=== PATIENT | male | born 1940 | race Caucasian/White ===

== ENCOUNTER 2016-05-13 18:32 | Inpatient (IN) | payer BC ==
[2016-05-13] MEDS ORDERED: Ondansetron INJ* 2 MG/ML VIAL IV ONE (20:42)
[2016-05-13] MEDS ORDERED: NS 0.9% 1000 ML* 1,000 ML IV ONE (20:42)
[2016-05-13] MEDS ORDERED: Morphine INJ* 4 MG/ML 1 ML SYRINGE IV ONE ×3 (20:42→23:21)
--- NOTE | 2016-05-13 20:58 | ED ---
Elbert Gomez Adam, scribed for Stiven Yusuf MD on 05/13/16 at 2036 . Abdominal Pain/Male - HPI Summary HPI Summary: Pt is a 75 year old male presenting with abdominal pain. The pain is described as a cramping that is diffuse in his central abdomen and tender to the touch. It set on at 08:00 this morning after the pt was already awake. Since then the pain has been constant and it grew worse this afternoon. The pt states that he has not been active today and has not had anything to eat or drink all day except for coffee this morning. He took Pepto Bismol but it did not alleviate his pain. Pt denies fever and N/V/D. - History of Current Complaint Chief Complaint: EDAbdPain Stated Complaint: ABD PAIN Time Seen by Provider: 05/13/16 20:30 Hx Obtained From: Patient Onset/Duration: Sudden Onset, Lasting Hours, Still Present Timing: Constant, Lasting Hours Severity Initially: Mild Severity Currently: Moderate Pain Intensity: 9 Pain Scale Used: 0-10 Numeric Location: Diffuse Radiates: No Character: Cramping Aggravating Factor(s): Nothing Alleviating Factor(s): Nothing Associated Signs And Symptoms: Positive: Decreased Appetite. Negative: Fever, Nausea, Vomiting, Diarrhea - Allergies/Home Medications Allergies/Adverse Reactions: Allergies Allergy/AdvReac Type Severity Reaction Status Date / Time No Known Allergies Allergy Verified 03/07/16 13:18 PMH/Surg Hx/FS Hx/Imm Hx Endocrine/Hematology History: Denies: Hx Diabetes Cardiovascular History: Reports: Hx Hypertension, Hx Peripheral Vascular Disease Musculoskeletal History: Denies: Hx Osteoporosis Sensory History: Reports: Hx Contacts or Glasses Denies: Hx Hearing Aid Opthamlomology History: Reports: Hx Contacts or Glasses - Surgical History Surgery Procedure, Year, and Place: cardiac stents angioplasty 4 yrs [place] [facility] [place] ONE DONE AT [facility] 3YRS AGO. APPENDECTOMY Hx Anesthesia Reactions: No Infectious Disease History: No Infectious Disease History: Denies: Hx Shingles, Hx Tuberculosis, Traveled Outside the [place] in Last 30 Days - Family History Known Family History: Positive: Other - Negative: malignant hyperthermia, anesthesia reaction - Social History Occupation: Retired Lives: With Family - Alcohol Use: Daily Alcohol Amount: 4-5 cans a/day Hx Substance Use: No Substance Use Type: Reports: None Hx Tobacco Use: Yes Smoking Status (MU): Heavy Every Day Tobacco Smoker Type: Cigarettes Amount Used/How Often: 1PPD Length of Time of Smoking/Using Tobacco: 50+ YEARS Have You Smoked in the Last Year: Yes Review of Systems Negative: Fever Positive: Abdominal Pain, Other - Decreased PO intake. Negative: Vomiting, Diarrhea, Nausea All Other Systems Reviewed And Are Negative: Yes Physical Exam Triage Information Reviewed: Yes Vital Signs On Initial Exam: Initial Vitals Temp Pulse Resp BP Pulse Ox 98.9 F 103 20 166/95 98 05/13/16 18:40 05/13/16 18:40 05/13/16 18:40 05/13/16 18:40 05/13/16 18:40 Vital Signs Reviewed: Yes Appearance: Positive: Ill-Appearing, Pain Distress - moderate [place] Skin: Positive: Warm Eyes: Positive: ROME Neck: Positive: Supple Respiratory/Lung Sounds: Positive: Clear to Auscultation, Breath Sounds Present Cardiovascular: Positive: RRR Abdomen Description: Positive: Soft, Other: - mild diffuse abd tendserness. Negative: Distended, Guarding Musculoskeletal: Positive: Strength/ROM Intact Neurological: Positive: Sensory/Motor Intact, Alert, Oriented to Person Place, Time Psychiatric: Positive: Anxious Diagnostics - Vital Signs Vital Signs Temp Pulse Resp BP Pulse Ox 05/13/16 20:21 97.4 F 05/13/16 20:20 94 97 05/13/16 20:19 197/88 05/13/16 19:28 96 180/75 100 05/13/16 18:40 98.9 F 103 20 166/95 98 - Laboratory Result Diagrams: 05/13/16 20:55 05/13/16 20:55 Lab Statement: Any lab studies that have been ordered have been reviewed, and results considered in the medical decision making process. - CT A/P CT Interpretation Completed By: Radiologist - IMPRESSION: 1. NEW LOW-DENSITY PANCREATIC LESION AND PANCREATIC DUCTAL DILATATION. MILDLY ENLARGED PERIPORTAL LYMPH NODE. SUGGEST FURTHER CHARACTERIZATION WITH A DEDICATED CT EXAMINATION OF - EKG 18:46 Cardiac Rate: NL - 95 BPM EKG Rhythm: Sinus Rhythm ST Segment: Non-Specific - ST abnormalities EKG Interpretation: APC's Abdominal Pain Fem Course/Dx - Diagnoses Provider Diagnoses: Abdominal pain Discharge - Discharge Plan Condition: Fair Disposition: ADMITTED TO [facility] The documentation as recorded by the Elbert vázquez Adam accurately reflects the service I personally performed and the decisions made by me, Stiven Yusuf MD.
[2016-05-13 20:59] LABS: Hematocrit 53 % (42-52); Hemoglobin 17.6 g/dl (14.0-18.0); Mean Corpuscular HGB Conc 33 g/dl (31-36); Mean Corpuscular Hemoglobin 35 pg (27-31); Mean Corpuscular Volume 103 fL (80-94); Mean Platelet Volume 9 um3 (7.4-10.4); Red Blood Count 5.11 10^6/ul (4.0-5.4); Red Cell Distribution Width 15 % (10.5-15); White Blood Count 11.1 10^3/ul (3.5-10.8)
[2016-05-13] MEDS ORDERED: Insulin REGULAR(*) 1 UNITS UNIT IV ONE (21:09)
[2016-05-13 21:15] LABS: Albumin 4.1 g/dL (3.2-5.2); BUN/Creatinine Ratio 9.8 (8-20); C Reactive Protein 3.69 mg/L (< 5.00); Calcium 9.2 mg/dL (8.6-10.3); EGFR African American 118.4 (>60); EGFR Non-African American 92.1 (>60); Globulin 3.1 g/dL (2-4); Magnesium 1.9 mg/dL (1.9-2.7); Total Bilirubin 0.5 mg/dL (0.2-1.0); Total Protein 7.2 g/dL (6.4-8.9)
[2016-05-13] MEDS ORDERED: Iohexol 300* (CONTRAST) 10 ML SDV IV ONE (21:36)
--- NOTE | 2016-05-13 23:10 | RAD ---
INDICATION: Generalized abdominal pain COMPARISON: PET scan February 15, 2016 TECHNIQUE: Axial source images were obtained from the hemidiaphragms to the symphysis pubis following administration of oral and intravenous contrast. 100 mL Omnipaque 300 was utilized. Coronal and sagittal reconstructed images were acquired. Lung bases: There are some this changes in lung bases. Liver: The liver is normal in size. There are no masses. There is no ductal dilatation. Gallbladder: There are no calcified gallstones. There is no evidence of wall thickening or pericholecystic fluid. Spleen: The spleen is normal in size. There are no masses. Pancreas: There is a low density mass at the junction of the head and body the pancreas measuring 1.8 cm. There is pancreatic ductal dilatation. This appears to represent a new finding. There is no infiltrative change around the SMA or SMV. There is a mildly enlarged periportal lymph node as described below. Adrenal glands: There is no evidence of adrenal mass. Kidneys: The kidneys are normal in size and position. There are prompt nephrograms and there is prompt excretion bilaterally. There are no renal parenchymal masses. There is no evidence of nephrolithiasis. Adenopathy: There is a periportal lymph node measuring 1.5 cm. Fluid collections: There are no free or localized fluid collections. Vessels:There are atherosclerotic changes involving the aorta and iliac vessels. There is no focal aneurysm. The IVC appears normal. GI tract: There are no acute abnormalities the upper GI tract. There are extensive diverticula of the sigmoid colon. Pelvic organs: The prostate is enlarged Bladder: Mildly distended bladder. Limited evaluation due to beam hardening artifact from left hip arthroplasty. Abdominal and pelvic soft tissues: The extraperitoneal abdominal and pelvic soft tissues appear normal.. Osseous structures: There are no acute osseous findings. Other: None IMPRESSION: 1. NEW LOW-DENSITY PANCREATIC LESION AND PANCREATIC DUCTAL DILATATION. MILDLY ENLARGED PERIPORTAL LYMPH NODE. SUGGEST FURTHER CHARACTERIZATION WITH A DEDICATED CT EXAMINATION OF THE PANCREAS 2. EXTENSIVE DIVERTICULA. NO CT EVIDENCE OF ACUTE DIVERTICULITIS
[2016-05-13] MEDS ORDERED: HYDROmorphone* 1 MG/ML 1 ML SYR IV SLOW PU ONE (23:50)
[2016-05-14 00:08] LABS: Urine Bilirubin Negative (Negative); Urine Glucose 2+(150 mg/dL) (Negative); Urine Nitrite Negative (Negative)
[2016-05-14] MEDS ORDERED: HYDROmorphone* 1 MG/ML 1 ML SYR IV SLOW PU ONE (00:43)
[2016-05-14] MEDS ORDERED: Al Hydrox/Mg Hydrox/Simet LIQ* 30 ML UDC PO PRN (01:03)
[2016-05-14] MEDS ORDERED: Ondansetron INJ* 2 MG/ML VIAL IV PRN (01:03)
[2016-05-14] MEDS ORDERED: Docusate CAP* 100 MG PO PRN (01:03)
[2016-05-14] MEDS ORDERED: Acetaminophen TAB* 325 MG PO PRN (01:03)
[2016-05-14] MEDS ORDERED: Senna TAB PO PRN (01:03)
[2016-05-14] MEDS ORDERED: Morphine INJ* 2 MG/ML 1 ML SYRINGE IV PRN (01:03)
[2016-05-14] MEDS ORDERED: Magic Mouth Was-BEN/MAAL/LIDO SWISH SWAL PRN (01:06)
[2016-05-14] MEDS ORDERED: Mouth Piece, Nicotine* 1 EACH CARTRIDGE INH PRN (01:11)
[2016-05-14] MEDS ORDERED: Thiamine IV* 100 MG/ML 2 ML VIAL IM ONE (01:11)
[2016-05-14] MEDS ORDERED: Nicotine Inhaler* 10 MG AMP INH PRN (01:11)
[2016-05-14] MEDS ORDERED: Albuterol HFA INHALER* 8 gm MDI INH PRN (01:17)
[2016-05-14] MEDS ORDERED: LORazepam TAB(*) 1 MG PO SCH (02:00)
[2016-05-14] MEDS: NS 0.9% 1000 ML* 1,000 ML IV SCH ×2 (03:22→14:39)
[2016-05-14] MEDS: Heparin VIAL(*) 5000 UNITS/ML VIAL (FIVE THOUSAND) SUBCUT SCH ×3 (05:52→21:50)
--- NOTE | 2016-05-14 07:53 | HP ---
HISTORY AND PHYSICAL: DATE OF EVALUATION: 05/13/2016. TIME OF EVALUATION: 0100. PRIMARY CARE PHYSICIAN: Haresh Bueno MD CHIEF COMPLAINT: Abdominal pain. HISTORY OF PRESENT ILLNESS: This is a 75-year-old male with past medical history of peripheral vascular disease, tobacco use, alcohol use, who presents to the emergency room with abdominal pain. The patient woke up this morning with burning epigastric pain, worse with a deep breath. He had a normal bowel movement, this did not improve his pain. He had an episode of nausea, vomiting this morning, the pain has not improved. He came to the emergency room for further evaluation. He states he has had normal bowel movements. Denies any black stools, no blood in the stool, no weight changes. His states he has had decrease in appetite. No fever, chills. No upper respiratory symptoms. No chest pain, no night sweats. Never had a colonoscopy or an EGD. The patient was evaluated for a pulmonary nodule, workup was unremarkable, was then sent to ENT and Pulmonary and has an unremarkable workup thus far. In the emergency room, the patient had labs and imaging, was found to have pancreatic lesion. The patient is being evaluated for further evaluation for this. PAST MEDICAL HISTORY: 1. COPD. 2. Peripheral vascular disease status post fem-pop bypass. 3. Hypertension. 4. History of left hip fracture status post repair. MEDICATIONS: The patient is unaware of medications he takes. He is going to bring in the list in the morning. ALLERGIES: No known drug allergies.. SOCIAL HISTORY: Lives at home with his , who works here at [employer], who is his healthcare proxy. Her name is Cely. He admits to smoking a pack to a pack and a half per day for the past 50 years. He admits to drinking 4 to 5 drinks per day for the past 50 years. No illicit drug use. He used to work at a grocery store. CODE STATUS: Full code. REVIEW OF SYSTEMS: Unchanged from [facility]. FAMILY HISTORY: Unknown. The patient is adopted. PHYSICAL EXAMINATION VITALS: Temp is 97.4, pulse rate is 100, respiratory rate is 25, oxygen saturation is 92% on 2 L, blood pressure 184/76. GENERAL: No acute distress, resting comfortably with his at the bedside. HEENT: Neck supple, no lymphadenopathy. Pupils are equal and reactive, anicteric. Head, normocephalic. Oropharynx, mucous membranes are moist. No erythema or exudate. CARDIAC: Tachycardia, soft, systolic murmur heard throughout. RESPIRATORY: Diminished breath sounds. Poor aeration, prolonged expiratory phase. No wheezing, rhonchi, or rales. ABDOMEN: Hypoactive bowel sounds, soft, slightly firm. No rebound or guarding. Epigastric tenderness noted. EXTREMITIES: No clubbing, cyanosis, or edema. +1 DPs. NEUROLOGIC: Alert and oriented x3. No focal neurologic deficits. LABORATORY DATA: White count 11.1, hemoglobin is 17.6, hematocrit 53, platelets of 205. INR is 0.91, sodium 130, potassium 4, chloride 96, bicarb 25 , BUN 8, creatinine 0.82, glucose 183, lactic acid 1.5, lipase 137, bilirubin 0.5, AST is 16, ALT 14. RADIOGRAPHIC DATA: New low density pancreatic lesion and pancreatic duct dilatation, mildly enlarged, periportal lymph node, suggest further characterization with a dedicated PT examination of the pancreas, extensive diverticula, no CT evidence of acute diverticulitis. ASSESSMENT AND PLAN: This is a 75-year-old male with past medical history of peripheral vascular disease, smoking, alcohol history, who presents to the emergency room with acute abdominal pain found to have pancreatic mass. 1. Abdominal pain. Assessment, I believe this pancreatic mass is an incidental finding. He has a mildly elevated lipase could be pancreatitis. He is a heavy smoker and drinker , I suspect this is gastritis or peptic ulcer related disease or esophagitis based on his presenting symptoms. Plan, we will admit him to [address], place him on gentle IV fluids, continuing pain control, we will try him on Magic mouthwash solution. I will consult Oncology in the morning for further evaluation of this pancreatic mass. Recommend GI consult for possible EGD as well. 2. Chronic medical problems. We need to get his medication regimen to resume his home medications as indicated. 3. FEN. As mentioned gentle fluids with a heart healthy diet. 4. DVT prophylaxis. He scores high risk. Place him on heparin subcu t.i.d. 5. Code status. Full code. PATIENT TIME: Greater than 60 minutes were spent doing the history and physical , more than half the time was spent in direct patient contact. CC: Haresh Bueno MD* [id number]/[facility] [place]: [id number] KIMBER
[2016-05-14] MEDS: Folic Acid TAB* 1 MG PO SCH (08:24)
[2016-05-14] MEDS: Multivitamins/Minerals TAB PO SCH (08:24)
[2016-05-14] MEDS: Thiamine TAB* 100 MG TAB PO SCH (08:24)
--- NOTE | 2016-05-14 10:32 | CONSULT ---
Consultation - Reason for Consultation Reason for Consultation: pancreatic mass Ordering Provider: Maria L Murrieta Chief Complaint: abdominal pain History of Present Illness: 75 yo M w active tobacco and ETOH use previously known to me for evaluation of a lung mass now with a pancreatic mass. Paz was initially seen by me in February of 2016 for evaluation of a lung lesion. He had low dose screening CT of his lungs given his tobacco use and was found to have an 11 mm RUL mass. He was referred for a PET scan which confirmed this lesion with an SUV of 4.7 as well as a new 1.6 cm semi solid nodule in the left lung. I was most suspicious for infection in the left lesion and treated him with a course of antibiotics and sent him for biopsy. His left lesion was resolved at the time of biopsy and his right lesion showed only inflammatory cells. I presented him at tumor board and the feeling was that it was likely all inflammatory and the recommendation was for [address] He was also noted to have mild asymmetric uptake in his right lingual tonsil that was felt to be low suspicion but he was recommended to follow up with ENT. He did see ENT and had per his report, direct visualization which was normal. He reports that his cough was better after taking antibiotics, however now that off of them it has come back and is productive of whitish phlegm. Yesterday he developed the acute onset of midepigastric abdominal pain, worsened with his coughing, and associated with anorexia. He also has substernal burning pain. He came to the ER and was noted to have leukocytosis and an elevated lipase. He had a CT A/P which revealed a cystic lesion in the neck of his pancreas with associated pancreatic ductal dilitation. Given this we are being consulted. He does report weight loss, which is confirmed from my office note to be 7 pounds since late February. Allergies/Medications Medication: Acetaminophen (Tylenol Tab*) 650 mg PO Q4H PRN PRN Reason: FEVER/PAIN Last Admin: 05/14/16 08:24 Dose: 650 mg Al Hydrox/Mg Hydrox/Simethicone (Maalox Plus*) 30 ml PO Q6H PRN PRN Reason: INDIGESTION Albuterol (Ventolin Hfa Inhaler*) 2 puff INH Q4H PRN PRN Reason: SOB/WHEEZING Device (Nicotine Mouth Piece*) 1 each INH .USE WITH NICOTROL PRN PRN Reason: CRAVING Docusate Sodium (Colace Cap*) 100 mg PO BID PRN PRN Reason: CONSTIPATION Folic Acid (Folvite Tab*) 1 mg PO DAILY [facility] Last Admin: 05/14/16 08:24 Dose: 1 mg Heparin Sodium (Porcine) (Heparin Vial(*)) 5,000 units SUBCUT Q8HR [facility] Last Admin: 05/14/16 05:52 Dose: 5,000 units Sodium Chloride (Ns 0.9% 1000 Ml*) 1,000 mls @ 100 mls/hr IV PER RATE [facility] Last Admin: 05/14/16 03:22 Dose: 100 mls/hr Lorazepam (Ativan Tab(*)) 0 mg PO .PER WAM SCORE [facility] PRN Reason: Protocol Morphine Sulfate (Morphine Inj (Syringe)*) 2 mg IV Q4H PRN PRN Reason: PAIN Multi-Ingredient Mouthwash/Gargle (Magic Mouth Was-Steve/Maal/Lido*) 5 ml SWISH SWAL QID PRN PRN Reason: INDIGESTION Multivitamins/Minerals (Theragran/Minerals Tab*) 1 tab PO DAILY [facility] Last Admin: 05/14/16 08:24 Dose: 1 tab Nicotine (Nicotine Inhaler*) 10 mg INH Q2H PRN PRN Reason: CRAVING Ondansetron HCl (Zofran Inj*) 4 mg IV Q4H PRN PRN Reason: NAUSEA/VOMITING Senna (Senokot Tab*) 1 tab PO BID PRN PRN Reason: CONSTIPATION Thiamine HCl (Vitamin B-1 Tab*) 100 mg PO DAILY [facility] Last Admin: 05/14/16 08:24 Dose: 100 mg Allergies/Adverse Reactions: Allergies Allergy/AdvReac Type Severity Reaction Status Date / Time No Known Allergies Allergy Verified 03/07/16 13:18 History - Past Medical History Other History: BPH. HTN. osteoporosis. PVD. left hip fracture Review of Systems - Review of Systems Constitutional Symptoms: Positive: Weight Loss Dermatology: Positive: Normal HEENT: Positive: Normal Eyes: Positive: Normal Thyroid: Positive: Normal Pulmonary: Positive: Cough Cardiology: Positive: Normal Gastroenterology: Positive: Abdominal Pain, Anorexia Genital - Urinary: Positive: Normal Endocrinology: Positive: Normal Neurology: Positive: Normal Psychiatry: Positive: Normal Physical Exam - Physical Exam Physical Examination: Vital Signs Temp Pulse Resp BP Pulse Ox 97.3 F 94 16 177/81 91 05/14/16 09:11 05/14/16 09:11 05/14/16 09:11 05/14/16 09:11 05/14/16 09:11 well appearing gentleman sitting up in bed in NAD perr eomi op moist distant breath sounds\ s1 s2 nl soft, nontender, +bs no le edema A+O x 3, nonfocal neurological exam skin intact Results - Lab Results Lab Results: Laboratory Results - last 24 hr 05/13/16 05/13/16 05/13/16 20:55 20:55 20:55 WBC 11.1 H RBC 5.11 Hgb 17.6 Hct 53 H MCV 103 H MCH 35 H MCHC 33 RDW 15 Plt Count 205 MPV 9 Neut % (Auto) 90.0 H Lymph % (Auto) 4.7 L Barnwell % (Auto) 4.9 Eos % (Auto) 0 Baso % (Auto) 0.4 Absolute Neuts (auto) 10.0 H Absolute Lymphs (auto) 0.5 L Absolute Monos (auto) 0.5 Absolute Eos (auto) 0 Absolute Basos (auto) 0 Absolute Nucleated RBC 0.01 Nucleated RBC % 0.1 Sodium 130 L Potassium 4.0 Chloride 96 L Carbon Dioxide 25 Anion Gap 9 BUN 8 Creatinine 0.82 Est GFR ( Amer) 118.4 Est GFR (Non-Af Amer) 92.1 BUN/Creatinine Ratio 9.8 Glucose 183 H Lactic Acid 1.5 Calcium 9.2 Magnesium 1.9 Total Bilirubin 0.50 AST 16 ALT 14 Alkaline Phosphatase 88 C-Reactive Protein 3.69 Total Protein 7.2 Albumin 4.1 Globulin 3.1 Albumin/Globulin Ratio 1.3 Lipase 137 H Urine Color Urine Appearance Urine pH Ur Specific Cl[place]ton Urine Protein Urine Ketones Urine Blood Urine Nitrate Urine Bilirubin Urine Urobilinogen Ur Leukocyte Esterase Urine Glucose 05/13/16 23:51 WBC RBC Hgb Hct MCV MCH MCHC RDW Plt Count MPV Neut % (Auto) Lymph % (Auto) Barnwell % (Auto) Eos % (Auto) Baso % (Auto) Absolute Neuts (auto) Absolute Lymphs (auto) Absolute Monos (auto) Absolute Eos (auto) Absolute Basos (auto) Absolute Nucleated RBC Nucleated RBC % Sodium Potassium Chloride Carbon Dioxide Anion Gap BUN Creatinine Est GFR ( Amer) Est GFR (Non-Af Amer) BUN/Creatinine Ratio Glucose Lactic Acid Calcium Magnesium Total Bilirubin AST ALT Alkaline Phosphatase C-Reactive Protein Total Protein Albumin Globulin Albumin/Globulin Ratio Lipase Urine Color Straw Urine Appearance Clear Urine pH 6.0 Ur Specific Clifton 1.020 Urine Protein Negative Urine Ketones 1+ H Urine Blood Negative Urine Nitrate Negative Urine Bilirubin Negative Urine Urobilinogen Negative Ur Leukocyte Esterase Negative Urine Glucose 2+(150 mg/dl) H Assessment and Plan Impression: 75 yo M w active tobacco and alcohol use presenting for evaluation of abdominal pain and found to have elevated WBC, elevated lipase and a cystic mass in the neck of his pancreas. I am not convinced that this does not represent pancreatitis with a pancreatic pseudocyst. Also on the differential clearly would be a pancreatic cancer. With his increased cough and abdominal pain I have ordered a CT of his chest and pancreatic protocol. I would also recommend a GI consult given his esophagitis symptoms and the mass (?EGD/ERCP). I have discussed these recommendations with Dr. Sousa. Thank you for this consultation and we will continue to follow with you.
[2016-05-14] MEDS ORDERED: Iohexol 300* (CONTRAST) 10 ML SDV IV ONE (11:50)
--- NOTE | 2016-05-14 12:47 | PN ---
Subjective Date of Service: 05/14/16 Interval History: Patient seen this morning. Reports continued abdominal pain, mostly with coughing or moving, not too much at rest. No hematochezia or melena. Drinks daily, no hx of pancreatitis or withdrawal symptoms. Family History: Unchanged from Admission Social History: Unchanged from Admission Past Medical History: Unchanged from Admission Objective Active Medications: Acetaminophen (Tylenol Tab*) 650 mg PO Q4H PRN Al Hydrox/Mg Hydrox/Simethicone (Maalox Plus*) 30 ml PO Q6H PRN Albuterol (Ventolin Hfa Inhaler*) 2 puff INH Q4H PRN Device (Nicotine Mouth Piece*) 1 each INH .USE WITH NICOTROL PRN Docusate Sodium (Colace Cap*) 100 mg PO BID PRN Folic Acid (Folvite Tab*) 1 mg PO DAILY [facility] Heparin Sodium (Porcine) (Heparin Vial(*)) 5,000 units SUBCUT Q8HR [facility] Sodium Chloride (Ns 0.9% 1000 Ml*) 1,000 mls @ 100 mls/hr IV PER RATE [facility] Lorazepam (Ativan Tab(*)) 0 mg PO .PER WAM SCORE [facility] Morphine Sulfate (Morphine Inj (Syringe)*) 2 mg IV Q4H PRN Multi-Ingredient Mouthwash/Gargle (Magic Mouth Was-Steve/Maal/Lido*) 5 ml SWISH SWAL QID PRN Multivitamins/Minerals (Theragran/Minerals Tab*) 1 tab PO DAILY [facility] Nicotine (Nicotine Inhaler*) 10 mg INH Q2H PRN Ondansetron HCl (Zofran Inj*) 4 mg IV Q4H PRN Pantoprazole Sodium (Protonix Iv*) 40 mg IV Q24H [facility] Senna (Senokot Tab*) 1 tab PO BID PRN Thiamine HCl (Vitamin B-1 Tab*) 100 mg PO DAILY [facility] Vital Signs 05/14/16 05/14/16 05/14/16 02:00 02:35 03:11 Temperature 98.1 F 97.6 F Pulse Rate 81 98 Respiratory 18 16 Rate Blood Pressure 160/82 155/79 (mmHg) O2 Sat by Pulse 97 91 Oximetry 05/14/16 05/14/16 05/14/16 03:27 03:41 05:00 Temperature 97.6 F 97.5 F Pulse Rate 98 80 Respiratory 16 18 16 Rate Blood Pressure 155/79 155/75 (mmHg) O2 Sat by Pulse 91 94 Oximetry 05/14/16 05/14/16 05/14/16 07:16 08:00 09:11 Temperature 97.8 F 97.3 F Pulse Rate 94 94 Respiratory 16 16 16 Rate Blood Pressure 166/88 177/81 (mmHg) O2 Sat by Pulse 92 91 Oximetry 05/14/16 05/14/16 05/14/16 11:04 11:25 11:26 Temperature 97.8 F Pulse Rate 80 93 Respiratory 16 14 Rate Blood Pressure 174/80 (mmHg) O2 Sat by Pulse 99 91 Oximetry Oxygen Devices in Use Now: None Appearance: Elderly, M, laying in bed in NAD Eyes: No Scleral Icterus Ears/Nose/Mouth/Throat: Mucous Membranes Moist Neck: NL Appearance and Movements; NL JVP Respiratory: Symmetrical Chest Expansion and Respiratory Effort, - - Diminished BS throughout Cardiovascular: NL Sounds; No Murmurs; No JVD, RRR Abdominal: - - Soft, TTP in epigastric area and periumbilical area, BS+, no distension, some guarding, no rebound tenderness Lymphatic: No Cervical Adenopathy Extremities: No Edema Skin: No Rash or Ulcers Neurological: Alert and Oriented x 3 Result Diagrams: 05/13/16 20:55 05/13/16 20:55 Assess/Plan/Problems-Billing Assessment: Abdominal pain, pancreatic lesion and minimally elevated lipase in a 75 yo M with hx of HTN, PVD, COPD - Patient Problems (1) Abdominal pain Current Visit: Yes Comment: pancreatic mass. Presenation not entirely consistent with pancreatitis. ?gastritis. Appreciate Oncology assistance, additional imaging pending. Will consult GI as well. Start PPI. Continue analgesia and IVF. (2) Cough Current Visit: Yes Comment: Mild leukocytosis. No CXR done in ED, currently getting CT chest, will hold ABx for now pending imaging. (3) PVD (peripheral vascular disease) Current Visit: Yes Comment: Hold ASA for now (4) DVT prophylaxis Current Visit: Yes Comment: HSQ
--- NOTE | 2016-05-14 14:21 | RAD ---
HISTORY: Pancreatic mass COMPARISONS: May 13, 2016, CT of the chest dated January 18, 2016 TECHNIQUE: Multiple contiguous axial CT scans were obtained of the chest after the ministration of intravenous contrast, and of the abdomen and pelvis before and after the administration of intravenous contrast. Coronal and sagittal multiplanar reformations are submitted for review.. Oral contrast was administered. Delayed images were obtained through the abdomen FINDINGS: CHEST NECK AND THYROID: The lower neck and thyroid are unremarkable. CHEST WALL: There is no lower cervical, axillary, or supraclavicular lymphadenopathy by size criteria. HEART AND PERICARDIUM: The heart is unremarkable. AORTA AND PULMONARY VASCULATURE: The aorta and pulmonary vasculature are normal. MEDIASTINUM: There is no mediastinal lymphadenopathy by size criteria. CHARAN: There is no hilar lymphadenopathy by size criteria. AIRWAY AND ESOPHAGUS: The airway is unremarkable, without endobronchial filling defect. The esophagus is grossly normal. LUNG PARENCHYMA: There is diffuse centrilobular emphysematous change. Again noted is a speculated nodule of the right upper lobe, stable PLEURA: No pleural abnormalities are noted. BONES AND SOFT TISSUES: Degenerative changes are noted ABDOMEN/PELVIS: LIVER: The liver is normal in shape, size, contour, and attenuation. BILE DUCTS: There is no intrahepatic or extrahepatic biliary dilatation. GALLBLADDER: The gallbladder is normal, without pericholecystic inflammatory change. PANCREAS: Again noted is an ill-defined low-attenuation lesion of the neck and body of the pancreas measuring approximately 2 x 1 x 1.2 cm in size. There is associated pancreatic ductal dilatation of the tail. This lesion is partially calcified. There is stranding of the peripancreatic fat along the head SPLEEN: Normal in size and appearance. UPPER GI TRACT: Evaluation of the gastrointestinal tract is limited by incomplete gastric distention. The upper GI tract is unremarkable. SMALL BOWEL \T\ MESENTERY: The small bowel is normal in contour, course, and caliber. There is no obstruction or dilatation. COLON: There are multiple diverticula of the distal colon. There is no pericolonic inflammatory change. ADRENALS: There is a 1.2 cm right adrenal nodule. This can be identified on previous examinations and is stable. KIDNEYS: The kidneys are normal in shape, size, contour, and axis. There is no hydronephrosis or nephrolithiasis. BLADDER: The bladder is smooth in contour. PELVIC ORGANS: The prostate gland is normal. The seminal vesicles are symmetric. AORTA: There is calcific atherosclerotic disease of the abdominal aorta and its branches, without aneurysmal dilatation IVC: Unremarkable LYMPH NODES: Again noted is an enlarged. The pancreatic duct up.. ABDOMINAL WALL: There is no evidence for abdominal wall hernia. BONES: Degenerative changes noted of the spine OTHER: None IMPRESSION: 1. AGAIN NOTED IS A SPICULATED NODULE OF THE RIGHT UPPER LOBE. 2. AGAIN NOTED IS A LOW-ATTENUATION LESION OF THE BODY/NECK OF THE PANCREAS WITH ASSOCIATED PANCREATIC DUCTAL DILATATION. THE APPEARANCE IS CONCERNING FOR PANCREATIC NEOPLASM, WITH AN ASSOCIATED ENLARGED PERIPANCREATIC LYMPH NODE. 3. THERE HAS BEEN INTERVAL DEVELOPMENT OF PERIPANCREATIC INFLAMMATORY CHANGE WHICH MAY REFLECT DEVELOPING PANCREATITIS. 4. ATHEROSCLEROSIS. 5. DIVERTICULOSIS
[2016-05-14] MEDS: Nicotine PATCH 21 MG/24 HR* PATCH TRANSDERM SCH (14:41)
[2016-05-14] MEDS: Pantoprazole IV* 40 MG IV SCH (14:43)
[2016-05-14] MEDS: HYDROmorphone* 1 MG/ML 1 ML SYR IV SLOW PU PRN ×2 (16:40→20:56)
[2016-05-14] MEDS: amLODIPine TAB* 5 MG PO SCH (17:31)
[2016-05-14] MEDS: Benzonatate CAP* 100 MG PO PRN (19:21)
[2016-05-14] MEDS: Nicotine Patch Removal NOTE PATCH OFF SCH (21:51)
--- NOTE | 2016-05-14 23:05 | CONS ---
CONSULTATION REPORT: DATE OF CONSULT: 05/14/16 REASON FOR CONSULT: Abdominal pain, pancreatitis, cyst within the pancreas. NARRATIVE: Mr. Taylor is a 75-year-old gentleman with a history of cigarette smoking, COPD, and regular alcohol use. He presented yesterday with sudden onset of epigastric pain, pleuritic in quality. There was some radiation into the back. He did have an episode of nausea and emesis as well. He presented to the emergency room, where he seemed clinically stable, was afebrile. Laboratory data demonstrated an elevated lipase of 137. Normal liver panel, white count of 11.1. He underwent CT scan of the abdomen once last night in the ER and a second one this morning with thin cuts to the pancreas demonstrating an approximately 1.8 cystic lesion in the pancreatic neck region with distal dilation of the pancreatic duct as well as evidence of inflammatory changes surrounding the pancreas consistent with pancreatitis. Of note, the patient did have a PET CT scan about 4 months ago in evaluation for a lung nodule, which did not show these change of the pancreas. He was admitted for pain control. He continues to experience some pain. He has had no fevers. He has no prior history of pancreatic disease, pancreatitis. PAST MEDICAL HISTORY: Include COPD. He had an extensive workup recently for a lung nodule which turned out to be inflammatory when biopsied. He has a history of peripheral vascular disease, status post fem-pop bypass, hypertension , and a history of hip fracture. MEDICATIONS: His ambulatory medicine is: 1. Boniva. 2. Baby aspirin. 3. He also takes a monthly medicine for osteoporosis. FAMILY HISTORY: Unknown as the patient is adopted. REVIEW OF SYSTEMS: He denies any GI bleeding, diarrhea, dysphagia, history of heartburn, jaundice, pruritus. He states that his weight has been stable. HABITS: He does have between 4 to 5 beers every night and has done so for many years. He continues to smoke cigarettes as well. PHYSICAL EXAM: He is a thin gentleman, in no acute distress, but describing some upper abdominal pain. Temperature is 97.4, blood pressure is 180/75, heart rate is 96 and regular. He is anicteric. Lungs are clear. Cardiac: Reveals regular rhythm without murmur. Abdomen is soft with epigastric tenderness without rebound or guarding. There is no organomegaly. Extremities reveal no edema. IMPRESSION: A 75-year-old gentleman with a history of chronic obstructive pulmonary disease, tobacco use, and regular alcohol use presenting with what appears to be clinical pancreatitis accompanied by an elevated lipase and interstitial inflammatory change around the pancreas. I do believe his presentation is consistent with that diagnosis. The etiology likely is alcohol use. LFTs are normal suggesting this is not biliary in origin. I will check a fasting lipid panel. He does have a cyst within the liver with some pancreatic duct dilation distally which may be an early pseudocyst versus IPMN. It is certainly possible he could have a IPMN associated with pancreatitis and ductal dilation which would imply a main duct lesion. If that is the case, then evaluation with EUS with an eye towards surgical resection may be necessary. I would advocate reimaging within 4 [address] scan and if the cyst is persistent, then probably EUS would be the next step. The patient should improve with conservative therapy. CC: Dr. Haresh Bueno * [id number]/CPS #: [id number] MTDD
[2016-05-15] MEDS: NS 0.9% 1000 ML* 1,000 ML IV SCH ×2 (00:27→13:08)
[2016-05-15] MEDS: HYDROmorphone* 1 MG/ML 1 ML SYR IV SLOW PU PRN ×2 (05:30→09:51)
[2016-05-15] MEDS: Heparin VIAL(*) 5000 UNITS/ML VIAL (FIVE THOUSAND) SUBCUT SCH ×3 (05:36→21:22)
[2016-05-15 06:01] LABS: Hematocrit 49 % (42-52); Hemoglobin 16.6 g/dl (14.0-18.0); Mean Corpuscular HGB Conc 34 g/dl (31-36); Mean Corpuscular Hemoglobin 35 pg (27-31); Mean Corpuscular Volume 102 fL (80-94); Mean Platelet Volume 9 um3 (7.4-10.4); Red Blood Count 4.78 10^6/ul (4.0-5.4); Red Cell Distribution Width 15 % (10.5-15)
[2016-05-15 06:02] LABS: Add Diff/Slide Review? Slide Review Added; Comments Flag Yes
[2016-05-15 06:20] LABS: BUN/Creatinine Ratio 9.1 (8-20); Calcium 8.4 mg/dL (8.6-10.3); EGFR African American 152.2 (>60); EGFR Non-African American 118.3 (>60); HDL Cholesterol 59.9 mg/dL; Potassium 3.3 mmol/L (3.5-5.0)
--- NOTE | 2016-05-15 08:29 | PN ---
Progress Note - Progress Note SOAP: Subjective: significant epigastric pain last night. lipase higher this am. felt better after he received IV narcotics. Objective: Vital Signs Temp Pulse Resp BP Pulse Ox 97.4 F 101 18 164/86 91 05/15/16 03:16 05/15/16 03:16 05/15/16 06:30 05/15/16 03:16 05/15/16 03:16 sitting up in NAD perr eomi op moist distant bs soft nontender this am no le edema a+O x 3 Laboratory Results - last 24 hr 05/15/16 05/15/16 05:41 05:41 WBC 12.0 H RBC 4.78 Hgb 16.6 Hct 49 MCV 102 H MCH 35 H MCHC 34 RDW 15 Plt Count 161 MPV 9 Neut % (Auto) 87.6 H Lymph % (Auto) 4.2 L [place] % (Auto) 7.8 Eos % (Auto) 0.1 Baso % (Auto) 0.3 Absolute Neuts (auto) 10.5 H Absolute Lymphs (auto) 0.5 L Absolute Monos (auto) 0.9 H Absolute Eos (auto) 0 Absolute Basos (auto) 0 Absolute Nucleated RBC 0.01 Nucleated RBC % 0.1 Sodium 125 L Potassium 3.3 L Chloride 94 L Carbon Dioxide 22 Anion Gap 9 BUN 6 Creatinine 0.66 L Est GFR ( Amer) 152.2 Est GFR (Non-Af Amer) 118.3 BUN/Creatinine Ratio 9.1 Glucose 124 H Calcium 8.4 L Triglycerides 56 Cholesterol 101 LDL Cholesterol 30 HDL Cholesterol 59.9 Lipase 151 H Assessment: 75 yo M w active tob and etoh use presenting for evaluation of abd pain and found to have pancreatitis and a pancreatic cystic lesion. This is most suspicious for pancreatitis with a pseudocyst. appreciate GI consultation and completely agree with conservative management with repeat scans in 4-6 weeks and referral for EUS at that time if still present. At this point I do not think he needs further oncologic evaluation but would be happy to see him back in the future if this does prove malignant. Additionally I have advised smoking and ETOH cessation. He had significant abdominal pain overnight and so I have asked him to remain NPO until he is evaluated by Dr. Sousa or Dr. Garcia.
[2016-05-15] MEDS: Benzonatate CAP* 100 MG PO PRN ×3 (09:47→21:22)
[2016-05-15] MEDS: Thiamine TAB* 100 MG TAB PO SCH (09:47)
[2016-05-15] MEDS: Folic Acid TAB* 1 MG PO SCH (09:47)
[2016-05-15] MEDS: amLODIPine TAB* 5 MG PO SCH (09:47)
[2016-05-15] MEDS: Multivitamins/Minerals TAB PO SCH (09:47)
[2016-05-15] MEDS: Nicotine PATCH 21 MG/24 HR* PATCH TRANSDERM SCH (09:49)
--- NOTE | 2016-05-15 11:23 | PN ---
Subjective Date of Service: 05/15/16 Interval History: Patient seen this morning. Reports he had some increase in pain overnight. No fever or chills. Held off on PO intake today so far as per Dr. Hood. Family History: Unchanged from Admission Social History: Unchanged from Admission Past Medical History: Unchanged from Admission Objective Active Medications: Acetaminophen (Tylenol Tab*) 650 mg PO Q4H PRN Al Hydrox/Mg Hydrox/Simethicone (Maalox Plus*) 30 ml PO Q6H PRN Albuterol (Ventolin Hfa Inhaler*) 2 puff INH Q4H PRN Amlodipine Besylate (Norvasc Tab*) 10 mg PO DAILY [facility] Benzonatate (Tessalon Cap*) 100 mg PO TID PRN Device (Nicotine Mouth Piece*) 1 each INH .USE WITH NICOTROL PRN Docusate Sodium (Colace Cap*) 100 mg PO BID PRN Folic Acid (Folvite Tab*) 1 mg PO DAILY [facility] Heparin Sodium (Porcine) (Heparin Vial(*)) 5,000 units SUBCUT Q8HR [facility] Hydromorphone HCl (Dilaudid Iv*) 0.5 mg IV SLOW PU Q4H PRN Sodium Chloride (Ns 0.9% 1000 Ml*) 1,000 mls @ 100 mls/hr IV PER RATE [facility] Lorazepam (Ativan Tab(*)) 0 mg PO .PER WAM SCORE [facility] Multi-Ingredient Mouthwash/Gargle (Magic Mouth Was-Steve/Maal/Lido*) 5 ml SWISH SWAL QID PRN Multivitamins/Minerals (Theragran/Minerals Tab*) 1 tab PO DAILY [facility] Nicotine (Nicotine Inhaler*) 10 mg INH Q2H PRN Nicotine (Nicotine Patch 21 Mg/24 Hr*) 1 patch TRANSDERM 0900 [facility] Ondansetron HCl (Zofran Inj*) 4 mg IV Q4H PRN Pantoprazole Sodium (Protonix Iv*) 40 mg IV Q24H [facility] Pharmacy Profile Note (Nicotine Patch Removal Note*) 1 note PATCH OFF 2100 [facility] Senna (Senokot Tab*) 1 tab PO BID PRN Thiamine HCl (Vitamin B-1 Tab*) 100 mg PO DAILY [facility] Vital Signs 05/14/16 05/14/16 05/14/16 11:25 11:26 12:04 Temperature 97.8 F Pulse Rate 80 93 Respiratory 14 16 Rate Blood Pressure 174/80 (mmHg) O2 Sat by Pulse 99 91 Oximetry 05/14/16 05/14/16 05/14/16 21:21 21:56 23:42 Temperature 98.3 F Pulse Rate 97 98 Respiratory 16 16 Rate Blood Pressure 163/68 173/85 (mmHg) O2 Sat by Pulse 91 90 Oximetry 05/15/16 05/15/16 05/15/16 02:36 03:16 05:30 Temperature 98.0 F 97.4 F Pulse Rate 102 101 Respiratory 16 16 18 Rate Blood Pressure 166/91 164/86 (mmHg) O2 Sat by Pulse 90 91 Oximetry Oxygen Devices in Use Now: None Appearance: Elderly, M, laying in bed in NAD Eyes: No Scleral Icterus Ears/Nose/Mouth/Throat: - - Dry MM Neck: NL Appearance and Movements; NL JVP Respiratory: Symmetrical Chest Expansion and Respiratory Effort, Clear to Auscultation Cardiovascular: NL Sounds; No Murmurs; No JVD, RRR Abdominal: - - Soft, non-distended, TTP in epigastric area Lymphatic: No Cervical Adenopathy Extremities: No Edema Skin: No Rash or Ulcers Neurological: Alert and Oriented x 3 Result Diagrams: 05/15/16 05:41 05/15/16 05:41 Assess/Plan/Problems-Billing Assessment: Abdominal pain, pancreatic lesion and minimally elevated lipase in a 75 yo M with hx of HTN, PVD, COPD - Patient Problems (1) Abdominal pain Current Visit: Yes Comment: pancreatic mass. Likely pancreatitis, possible pseudocyst. Appreciate GI and Oncology assistance. Will make patient NPO for now. Continue analgesia and IVF. Will need repeat CT scan in 4-6 weeks (2) PVD (peripheral vascular disease) Current Visit: Yes Comment: Resume home ASA (3) HTN (hypertension) Current Visit: Yes Comment: Continue home Amlodipine. Likely a bit higher due to pain. (4) DVT prophylaxis Current Visit: Yes Comment: HSQ
[2016-05-15] MEDS: Pantoprazole IV* 40 MG IV SCH (14:51)
[2016-05-15 15:43] LABS: BUN/Creatinine Ratio 12.3 (8-20); Calcium 8.4 mg/dL (8.6-10.3); EGFR African American 135.4 (>60); EGFR Non-African American 105.3 (>60); Potassium 3.4 mmol/L (3.5-5.0)
[2016-05-15] MEDS: Nicotine Patch Removal NOTE PATCH OFF SCH (23:09)
[2016-05-16] MEDS: NS 0.9% 1000 ML* 1,000 ML IV SCH (01:02)
[2016-05-16] MEDS: Heparin VIAL(*) 5000 UNITS/ML VIAL (FIVE THOUSAND) SUBCUT SCH ×3 (05:12→21:32)
[2016-05-16 06:25] LABS: Hematocrit 49 % (42-52); Hemoglobin 16.4 g/dl (14.0-18.0); Mean Corpuscular HGB Conc 34 g/dl (31-36); Mean Corpuscular Hemoglobin 35 pg (27-31); Mean Corpuscular Volume 102 fL (80-94); Mean Platelet Volume 10 um3 (7.4-10.4); Red Blood Count 4.76 10^6/ul (4.0-5.4); Red Cell Distribution Width 15 % (10.5-15); White Blood Count 11.8 10^3/ul (3.5-10.8)
[2016-05-16 07:02] LABS: BUN/Creatinine Ratio 13.6 (8-20); Calcium 8.1 mg/dL (8.6-10.3); EGFR African American 152.2 (>60); EGFR Non-African American 118.3 (>60)
[2016-05-16] MEDS: amLODIPine TAB* 5 MG PO SCH (07:32)
[2016-05-16] MEDS: Aspirin EC Low Dose* 81 MG TAB.EC PO SCH (07:32)
[2016-05-16] MEDS: Multivitamins/Minerals TAB PO SCH (07:33)
[2016-05-16] MEDS: Thiamine TAB* 100 MG TAB PO SCH (07:33)
[2016-05-16] MEDS: Nicotine PATCH 21 MG/24 HR* PATCH TRANSDERM SCH (07:33)
[2016-05-16] MEDS: Folic Acid TAB* 1 MG PO SCH (07:33)
[2016-05-16] MEDS ORDERED: Labetalol IV* 5 MG/ML 20 ML VIAL IV PUSH PRN (07:38)
[2016-05-16] MEDS: Hydrochlorothiazide TAB* 25 MG PO SCH (08:08)
--- NOTE | 2016-05-16 08:23 | RAD ---
HISTORY: Hypoxia COMPARISONS: May 18, 2015 VIEWS:1: Single frontal portable view of the chest at 8:05 AM FINDINGS: LINES AND TUBES: None. CARDIOMEDIASTINAL SILHOUETTE: The cardiomediastinal silhouette is normal for portable technique. PLEURA: The costophrenic angles are sharp. No pleural abnormalities are noted. LUNG PARENCHYMA: There is hyperinflation. There is minimal linear opacification of left lung base ABDOMEN: The upper abdomen is clear. There is no subphrenic gas. BONES AND SOFT TISSUES: No bone or soft tissue abnormalities are noted. IMPRESSION: HYPERINFLATION WITH MINIMAL LINEAR ATELECTASIS OF LEFT LUNG BASE
--- NOTE | 2016-05-16 10:36 | PN ---
Subjective Date of Service: 05/16/16 Interval History: Feels pain is improving, has not required much pain medication. No fever or chills. Required oxygen briefly overnight. Hungry. Family History: Unchanged from Admission Social History: Unchanged from Admission Past Medical History: Unchanged from Admission Objective Active Medications: Acetaminophen (Tylenol Tab*) 650 mg PO Q4H PRN PRN Reason: FEVER/PAIN Last Admin: 05/14/16 08:24 Dose: 650 mg Al Hydrox/Mg Hydrox/Simethicone (Maalox Plus*) 30 ml PO Q6H PRN PRN Reason: INDIGESTION Albuterol (Ventolin Hfa Inhaler*) 2 puff INH Q4H PRN PRN Reason: SOB/WHEEZING Amlodipine Besylate (Norvasc Tab*) 10 mg PO DAILY [facility] [place] Last Admin: 05/16/16 07:32 Dose: 10 mg Aspirin (Aspirin Ec Low Dose*) 81 mg PO QAM [facility] Last Admin: 05/16/16 07:32 Dose: 81 mg Benzonatate (Tessalon Cap*) 100 mg PO TID PRN PRN Reason: COUGH Last Admin: 05/15/16 21:22 Dose: 100 mg Device (Nicotine Mouth Piece*) 1 each INH .USE WITH NICOTROL PRN PRN Reason: CRAVING Docusate Sodium (Colace Cap*) 100 mg PO BID PRN PRN Reason: CONSTIPATION Folic Acid (Folvite Tab*) 1 mg PO DAILY [facility] [place] Last Admin: 05/16/16 07:33 Dose: 1 mg Heparin Sodium (Porcine) (Heparin Vial(*)) 5,000 units SUBCUT Q8HR [facility] [place] Last Admin: 05/16/16 05:12 Dose: 5,000 units Hydrochlorothiazide (Hydrodiuril Tab*) 25 mg PO DAILY [facility] [place] Last Admin: 05/16/16 08:08 Dose: 25 mg Hydromorphone HCl (Dilaudid Iv*) 0.5 mg IV SLOW PU Q4H PRN PRN Reason: PAIN Last Admin: 05/15/16 09:51 Dose: 0.5 mg Sodium Chloride (Ns 0.9% 1000 Ml*) 1,000 mls @ 100 mls/hr IV PER RATE [facility] [place] Last Admin: 05/16/16 01:02 Dose: 100 mls/hr Labetalol HCl (Trandate Iv*) 10 mg IV PUSH Q6H PRN PRN Reason: SBP > 170 Last Admin: 05/16/16 08:08 Dose: 10 mg Multi-Ingredient Mouthwash/Gargle (Magic Mouth Was-Steve/Maal/Lido*) 5 ml SWISH SWAL QID PRN PRN Reason: INDIGESTION Multivitamins/Minerals (Theragran/Minerals Tab*) 1 tab PO DAILY [facility] [place] Last Admin: 05/16/16 07:33 Dose: 1 tab Nicotine (Nicotine Inhaler*) 10 mg INH Q2H PRN PRN Reason: CRAVING Nicotine (Nicotine Patch 21 Mg/24 Hr*) 1 patch TRANSDERM 0900 [facility] [place] Last Admin: 05/16/16 07:33 Dose: 1 patch Ondansetron HCl (Zofran Inj*) 4 mg IV Q4H PRN PRN Reason: NAUSEA/VOMITING Pantoprazole Sodium (Protonix Iv*) 40 mg IV Q24H [facility] [place] Last Admin: 05/15/16 14:51 Dose: 40 mg Pharmacy Profile Note (Nicotine Patch Removal Note*) 1 note PATCH OFF 2100 [facility] [place] Last Admin: 05/15/16 23:09 Dose: Not Given Senna (Senokot Tab*) 1 tab PO BID PRN PRN Reason: CONSTIPATION Thiamine HCl (Vitamin B-1 Tab*) 100 mg PO DAILY [facility] [place] Last Admin: 05/16/16 07:33 Dose: 100 mg Vital Signs 05/15/16 05/15/16 05/15/16 10:51 12:07 13:39 Temperature 98.0 F 97.4 F Pulse Rate 99 112 Respiratory 18 17 20 Rate Blood Pressure 150/66 151/82 (mmHg) O2 Sat by Pulse 92 93 Oximetry 05/16/16 05/16/16 09:11 10:27 Temperature 98.3 F Pulse Rate 98 82 Respiratory 20 16 Rate Blood Pressure 148/70 (mmHg) O2 Sat by Pulse 92 95 Oximetry Oxygen Devices in Use Now: None Appearance: Elderly, M, laying in bed in NAD Eyes: No Scleral Icterus Ears/Nose/Mouth/Throat: - - Dry MM Neck: NL Appearance and Movements; NL JVP Respiratory: Symmetrical Chest Expansion and Respiratory Effort, Clear to Auscultation Cardiovascular: NL Sounds; No Murmurs; No JVD, RRR Abdominal: NL Sounds; No Tenderness; No Distention Lymphatic: No Cervical Adenopathy Extremities: No Edema Skin: No Rash or Ulcers Neurological: Alert and Oriented x 3 Result Diagrams: 05/16/16 05:43 05/16/16 05:43 Assess/Plan/Problems-Billing Assessment: Abdominal pain, pancreatic lesion and minimally elevated lipase in a 75 yo M with hx of HTN, PVD, COPD - Patient Problems (1) Abdominal pain Current Visit: Yes Comment: pancreatic mass. Likely pancreatitis, possible pseudocyst. Appreciate GI and Oncology assistance. Start clears today. Continue analgesia and IVF. Will need repeat CT scan in 4-6 weeks (2) PVD (peripheral vascular disease) Current Visit: Yes Comment: ASA (3) HTN (hypertension) Current Visit: Yes Comment: Continue home Amlodipine. Added HCTZ due to persistent HTN (4) DVT prophylaxis Current Visit: Yes Comment: HSQ
[2016-05-16] MEDS: Pantoprazole IV* 40 MG IV SCH (13:25)
[2016-05-16] MEDS: Benzonatate CAP* 100 MG PO PRN ×2 (13:32→21:01)
[2016-05-16] MEDS ORDERED: Baclofen TAB* 10 MG PO ONE ×2 (16:57→21:19)
[2016-05-16] MEDS: HYDROmorphone* 1 MG/ML 1 ML SYR IV SLOW PU PRN (21:31)
[2016-05-16] MEDS: Nicotine Patch Removal NOTE PATCH OFF SCH (21:32)
[2016-05-17] MEDS: Heparin VIAL(*) 5000 UNITS/ML VIAL (FIVE THOUSAND) SUBCUT SCH ×3 (05:58→20:45)
[2016-05-17] MEDS: Benzonatate CAP* 100 MG PO PRN ×2 (06:20→20:45)
[2016-05-17 07:23] LABS: BUN/Creatinine Ratio 11.3 (8-20); Calcium 8.4 mg/dL (8.6-10.3); EGFR African American 139.9 (>60); EGFR Non-African American 108.8 (>60); Potassium 3.4 mmol/L (3.5-5.0)
[2016-05-17] MEDS: Nicotine PATCH 21 MG/24 HR* PATCH TRANSDERM SCH (07:55)
[2016-05-17] MEDS: Multivitamins/Minerals TAB PO SCH (07:56)
[2016-05-17] MEDS: Hydrochlorothiazide TAB* 25 MG PO SCH (07:56)
[2016-05-17] MEDS: Folic Acid TAB* 1 MG PO SCH (07:56)
[2016-05-17] MEDS: amLODIPine TAB* 5 MG PO SCH (07:56)
[2016-05-17] MEDS: Aspirin EC Low Dose* 81 MG TAB.EC PO SCH (07:56)
[2016-05-17] MEDS: Thiamine TAB* 100 MG TAB PO SCH (07:56)
--- NOTE | 2016-05-17 08:22 | PN ---
Subjective Date of Service: 05/17/16 Interval History: Patient seen this morning. Reports pain is about the same as yesterday. Hesitant to advance diet. No nausea or vomiting. Family History: Unchanged from Admission Social History: Unchanged from Admission Past Medical History: Unchanged from Admission Objective Active Medications: Acetaminophen (Tylenol Tab*) 650 mg PO Q4H PRN Al Hydrox/Mg Hydrox/Simethicone (Maalox Plus*) 30 ml PO Q6H PRN Albuterol (Ventolin Hfa Inhaler*) 2 puff INH Q4H PRN Amlodipine Besylate (Norvasc Tab*) 10 mg PO DAILY [facility] Aspirin (Aspirin Ec Low Dose*) 81 mg PO QAM [facility] Benzonatate (Tessalon Cap*) 100 mg PO TID PRN Device (Nicotine Mouth Piece*) 1 each INH .USE WITH NICOTROL PRN Docusate Sodium (Colace Cap*) 100 mg PO BID PRN Folic Acid (Folvite Tab*) 1 mg PO DAILY [facility] Heparin Sodium (Porcine) (Heparin Vial(*)) 5,000 units SUBCUT Q8HR [facility] Hydrochlorothiazide (Hydrodiuril Tab*) 25 mg PO DAILY [facility] Hydromorphone HCl (Dilaudid Iv*) 0.5 mg IV SLOW PU Q4H PRN Potassium Chloride 40 meq/ (Lactated Ringer's) 1,020 mls @ 100 mls/hr IVPB Q10H [facility] Labetalol HCl (Trandate Iv*) 10 mg IV PUSH Q6H PRN Multi-Ingredient Mouthwash/Gargle (Magic Mouth Was-Steve/Maal/Lido*) 5 ml SWISH SWAL QID PRN Multivitamins/Minerals (Theragran/Minerals Tab*) 1 tab PO DAILY [facility] Nicotine (Nicotine Inhaler*) 10 mg INH Q2H PRN Nicotine (Nicotine Patch 21 Mg/24 Hr*) 1 patch TRANSDERM 0900 [facility] Ondansetron HCl (Zofran Inj*) 4 mg IV Q4H PRN Pantoprazole Sodium (Protonix Iv*) 40 mg IV Q24H [facility] Pharmacy Profile Note (Nicotine Patch Removal Note*) 1 note PATCH OFF 2100 [facility] Senna (Senokot Tab*) 1 tab PO BID PRN Thiamine HCl (Vitamin B-1 Tab*) 100 mg PO DAILY [facility] Vital Signs 05/16/16 05/16/16 05/16/16 09:11 10:27 15:08 Temperature 98.3 F 99.4 F Pulse Rate 98 82 105 Respiratory 20 16 16 Rate Blood Pressure 148/70 149/78 (mmHg) O2 Sat by Pulse 92 95 94 Oximetry 05/16/16 05/16/16 05/16/16 16:00 20:00 21:31 Temperature Pulse Rate Respiratory 19 17 Rate Blood Pressure (mmHg) O2 Sat by Pulse 94 Oximetry 05/16/16 05/16/16 05/17/16 22:31 23:24 00:00 Temperature 98.3 F Pulse Rate 97 Respiratory 19 25 Rate Blood Pressure 147/70 (mmHg) O2 Sat by Pulse 86 92 Oximetry 05/17/16 07:20 Temperature 97.2 F Pulse Rate 84 Respiratory 16 Rate Blood Pressure 162/70 (mmHg) O2 Sat by Pulse 90 Oximetry Oxygen Devices in Use Now: None Appearance: Elderly, M, laying in bed in NAD Eyes: No Scleral Icterus Ears/Nose/Mouth/Throat: Mucous Membranes Moist Neck: NL Appearance and Movements; NL JVP Respiratory: Symmetrical Chest Expansion and Respiratory Effort, Clear to Auscultation Cardiovascular: NL Sounds; No Murmurs; No JVD, RRR Abdominal: - - Soft, mild distension, TTP in epigastric area, no rebound/ guarding Lymphatic: No Cervical Adenopathy Extremities: No Edema Skin: No Rash or Ulcers Neurological: Alert and Oriented x 3 Result Diagrams: 05/16/16 05:43 05/17/16 06:42 Assess/Plan/Problems-Billing Assessment: Abdominal pain, pancreatic lesion and minimally elevated lipase in a 75 yo M with hx of HTN, PVD, COPD - Patient Problems (1) Abdominal pain Current Visit: Yes Comment: pancreatic mass. Likely pancreatitis, possible pseudocyst. Appreciate GI and Oncology assistance. Will continue full liquids for now. Continue analgesia, stop IVF. Will need repeat CT scan in 4-6 weeks (2) PVD (peripheral vascular disease) Current Visit: Yes Comment: ASA (3) HTN (hypertension) Current Visit: Yes Comment: Continue Amlodipine and HCTZ (4) DVT prophylaxis Current Visit: Yes Comment: HSQ Status and Disposition: Continue to monitor in the hospital, advancing diet slowly
[2016-05-17] MEDS: Pantoprazole IV* 40 MG IV SCH (13:05)
[2016-05-17] MEDS: Nicotine Patch Removal NOTE PATCH OFF SCH (20:50)
[2016-05-18] MEDS: Heparin VIAL(*) 5000 UNITS/ML VIAL (FIVE THOUSAND) SUBCUT SCH ×3 (05:49→21:06)
[2016-05-18] MEDS: amLODIPine TAB* 5 MG PO SCH (08:46)
[2016-05-18] MEDS: Aspirin EC Low Dose* 81 MG TAB.EC PO SCH (08:47)
[2016-05-18] MEDS: Thiamine TAB* 100 MG TAB PO SCH (08:47)
[2016-05-18] MEDS: Nicotine PATCH 21 MG/24 HR* PATCH TRANSDERM SCH (08:47)
[2016-05-18] MEDS: Folic Acid TAB* 1 MG PO SCH (08:47)
[2016-05-18] MEDS: Hydrochlorothiazide TAB* 25 MG PO SCH (08:47)
[2016-05-18] MEDS: Multivitamins/Minerals TAB PO SCH (08:47)
[2016-05-18 08:48] LABS: BUN/Creatinine Ratio 17.3 (8-20); Calcium 8.6 mg/dL (8.6-10.3); EGFR African American 120.1 (>60); EGFR Non-African American 93.4 (>60)
[2016-05-18] MEDS: Sodium Chloride TAB* 1 GM PO SCH ×2 (10:28→21:05)
[2016-05-18 13:27] LABS: Calcium 8.8 mg/dL (8.6-10.3); EGFR African American 107.8 (>60); EGFR Non-African American 83.8 (>60)
[2016-05-18] MEDS: Pantoprazole IV* 40 MG IV SCH (13:43)
[2016-05-18] MEDS ORDERED: Potassium Chlor TAB* 20 MEQ TAB.ER PO ONE (14:15)
--- NOTE | 2016-05-18 14:21 | PN ---
Subjective Date of Service: 05/18/16 Interval History: Patient seen this morning. Reports feeling well. No abdominal pain. Tolerating diet. Family History: Unchanged from Admission Social History: Unchanged from Admission Past Medical History: Unchanged from Admission Objective Active Medications: Acetaminophen (Tylenol Tab*) 650 mg PO Q4H PRN PRN Reason: FEVER/PAIN Last Admin: 05/14/16 08:24 Dose: 650 mg Al Hydrox/Mg Hydrox/Simethicone (Maalox Plus*) 30 ml PO Q6H PRN PRN Reason: INDIGESTION Albuterol (Ventolin Hfa Inhaler*) 2 puff INH Q4H PRN PRN Reason: SOB/WHEEZING Amlodipine Besylate (Norvasc Tab*) 10 mg PO DAILY [facility] Last Admin: 05/18/16 08:46 Dose: 10 mg Aspirin (Aspirin Ec Low Dose*) 81 mg PO QAM [facility] Last Admin: 05/18/16 08:47 Dose: 81 mg Benzonatate (Tessalon Cap*) 100 mg PO TID PRN PRN Reason: COUGH Last Admin: 05/17/16 20:45 Dose: 100 mg Device (Nicotine Mouth Piece*) 1 each INH .USE WITH NICOTROL PRN PRN Reason: CRAVING Docusate Sodium (Colace Cap*) 100 mg PO BID PRN PRN Reason: CONSTIPATION Folic Acid (Folvite Tab*) 1 mg PO DAILY [facility] Last Admin: 05/18/16 08:47 Dose: 1 mg Heparin Sodium (Porcine) (Heparin Vial(*)) 5,000 units SUBCUT Q8HR [facility] Last Admin: 05/18/16 13:43 Dose: 5,000 units Hydromorphone HCl (Dilaudid Iv*) 0.5 mg IV SLOW PU Q4H PRN PRN Reason: PAIN Last Admin: 05/16/16 21:31 Dose: 0.5 mg Labetalol HCl (Trandate Iv*) 10 mg IV PUSH Q6H PRN PRN Reason: SBP > 170 Last Admin: 05/16/16 08:08 Dose: 10 mg Multi-Ingredient Mouthwash/Gargle (Magic Mouth Was-Steve/Maal/Lido*) 5 ml SWISH SWAL QID PRN PRN Reason: INDIGESTION Multivitamins/Minerals (Theragran/Minerals Tab*) 1 tab PO DAILY [facility] Last Admin: 05/18/16 08:47 Dose: 1 tab Nicotine (Nicotine Inhaler*) 10 mg INH Q2H PRN PRN Reason: CRAVING Nicotine (Nicotine Patch 21 Mg/24 Hr*) 1 patch TRANSDERM 0900 [facility] Last Admin: 05/18/16 08:47 Dose: 1 patch Ondansetron HCl (Zofran Inj*) 4 mg IV Q4H PRN PRN Reason: NAUSEA/VOMITING Pantoprazole Sodium (Protonix Iv*) 40 mg IV Q24H [facility] Last Admin: 05/18/16 13:43 Dose: 40 mg Pharmacy Profile Note (Nicotine Patch Removal Note*) 1 note PATCH OFF 2099 [facility] Last Admin: 05/17/16 20:50 Dose: Not Given Potassium Chloride (Klor Con Er Tab*) 40 meq PO ONCE ONE Stop: 05/18/16 14:16 Senna (Senokot Tab*) 1 tab PO BID PRN PRN Reason: CONSTIPATION Sodium Chloride (Sodium Chloride Tab*) 1 gm PO BID [facility] Last Admin: 05/18/16 10:28 Dose: 1 gm Thiamine HCl (Vitamin B-1 Tab*) 100 mg PO DAILY [facility] Last Admin: 05/18/16 08:47 Dose: 100 mg Vital Signs 05/17/16 05/17/16 05/17/16 15:40 16:12 16:58 Temperature 98 F Pulse Rate 84 Respiratory 20 Rate Blood Pressure 172/66 (mmHg) O2 Sat by Pulse 95 94 Oximetry 05/17/16 05/17/16 05/17/16 20:00 22:54 23:10 Temperature 98.1 F Pulse Rate 111 99 Respiratory 20 18 Rate Blood Pressure 162/75 (mmHg) O2 Sat by Pulse 90 Oximetry 05/18/16 05/18/16 05/18/16 00:00 00:53 07:37 Temperature 97.3 F Pulse Rate 99 104 Respiratory 18 18 Rate Blood Pressure 149/72 (mmHg) O2 Sat by Pulse 90 90 93 Oximetry Oxygen Devices in Use Now: None Appearance: Elderly, M, laying in bed in NAD Eyes: No Scleral Icterus Ears/Nose/Mouth/Throat: Mucous Membranes Moist Neck: NL Appearance and Movements; NL JVP Respiratory: Symmetrical Chest Expansion and Respiratory Effort, Clear to Auscultation Cardiovascular: NL Sounds; No Murmurs; No JVD, RRR Abdominal: NL Sounds; No Tenderness; No Distention Lymphatic: No Cervical Adenopathy Extremities: No Edema Skin: No Rash or Ulcers Neurological: Alert and Oriented x 3 Result Diagrams: 05/16/16 05:43 05/18/16 13:08 Assess/Plan/Problems-Billing Assessment: Abdominal pain, pancreatic lesion and minimally elevated lipase in a 75 yo M with hx of HTN, PVD, COPD - Patient Problems (1) Abdominal pain Current Visit: Yes Comment: pancreatic mass. Likely pancreatitis, possible pseudocyst. Appreciate GI and Oncology assistance. Tolerating solids. Will need repeat CT scan in 4-6 weeks (2) PVD (peripheral vascular disease) Current Visit: Yes Comment: ASA (3) Hyponatremia Current Visit: Yes Status: Acute Code(s): E87.1 - HYPO-OSMOLALITY AND HYPONATREMIA SNOMED Code(s): 37218990 Comment: Worse this morning. May be due to HCTZ, will stop. Will monitor another 24 hours, recheck BMP in AM (4) HTN (hypertension) Current Visit: Yes Comment: Continue Amlodipine (5) DVT prophylaxis Current Visit: Yes Comment: HSQ Status and Disposition: Continue to monitor in the hospital until Na corrects
[2016-05-18] MEDS: Nicotine Patch Removal NOTE PATCH OFF SCH (20:59)
[2016-05-19] MEDS: HYDROmorphone* 1 MG/ML 1 ML SYR IV SLOW PU PRN ×2 (05:37→12:00)
[2016-05-19] MEDS: Heparin VIAL(*) 5000 UNITS/ML VIAL (FIVE THOUSAND) SUBCUT SCH ×2 (05:41→15:30)
[2016-05-19 06:22] LABS: BUN/Creatinine Ratio 22.2 (8-20); Calcium 8.5 mg/dL (8.6-10.3); EGFR African American 120.1 (>60); EGFR Non-African American 93.4 (>60); Potassium 3.2 mmol/L (3.5-5.0)
[2016-05-19 08:04] VITALS: BP 135/79
--- NOTE | 2016-05-19 09:57 | DCNOTE ---
Feeling well today. Slight pain intermittently but tolerating food. Has been ambulating. On exam, RRR, s1 and s2 present, no m/g/r, abd soft, NTND, BS+, no LE edema Discharge home today on low-fat diet, continue pain medications at home. Repeat BMP later this week. Outpatient f/u
[2016-05-19] MEDS: Multivitamins/Minerals TAB PO SCH (10:03)
[2016-05-19] MEDS: Aspirin EC Low Dose* 81 MG TAB.EC PO SCH (10:03)
[2016-05-19] MEDS: Sodium Chloride TAB* 1 GM PO SCH (10:03)
[2016-05-19] MEDS: Thiamine TAB* 100 MG TAB PO SCH (10:03)
[2016-05-19] MEDS: amLODIPine TAB* 5 MG PO SCH (10:03)
[2016-05-19] MEDS: Nicotine PATCH 21 MG/24 HR* PATCH TRANSDERM SCH (10:04)
[2016-05-19] MEDS: Folic Acid TAB* 1 MG PO SCH (10:04)
[2016-05-19] MEDS: Pantoprazole IV* 40 MG IV SCH (12:05)
--- NOTE | 2016-05-21 04:36 | DS ---
DISCHARGE SUMMARY: DATE OF ADMISSION: 05/13/16 DATE OF DISCHARGE: 05/19/16 PCP: Haresh Bueno MD CONSULTANTS ON THIS HOSPITALIZATION: Dr. Darlin Hood, Oncology and Dr. Riki Garcia, Gastroenterology. PRINCIPAL DISCHARGE DIAGNOSES: 1. Acute pancreatitis with likely pancreatic pseudocyst. 2. Hyponatremia. SECONDARY DIAGNOSES: 1. Alcohol use. 2. Chronic obstructive pulmonary disease. 3. Peripheral vascular disease. 4. Hypertension. 5. Chronic hyponatremia. STUDIES DONE DURING HOSPITALIZATION: CT of abdomen and pelvis with contrast, impression: New low density pancreatic lesion and pancreatic ductal dilatation , mildly enlarged periportal lymph node, suggest further characterization with a dedicated CT exam of the pancreas, extensive diverticula. No CT evidence of acute diverticulitis. CT chest, abdomen, and pelvis with contrast, impression: Again noted is a spiculated nodule of the right upper lobe, again noted is a low attenuation lesion of the body and neck of the pancreas with associated pancreatic ductal dilatation. The appearance is concerning for pancreatic neoplasm with an associated enlarged peripancreatic lymph node. There has been interval development of peripancreatic inflammatory change which may reflect developing pancreatitis. Atherosclerosis, diverticulosis. Chest x-ray, impression: Hyperinflation with minimal linear atelectasis of the left lung base. DISCHARGE MEDICATION REGIMEN: 1. Baclofen 10 mg by mouth 3 times daily as needed for hiccups. 2. Tessalon Perles 100 mg by mouth 3 times daily as needed for cough. 3. Percocet 5/325 one to two tablets by mouth every 6 hours as needed for pain. 4. Aspirin 81 mg by mouth daily. 5. Boniva 150 mg by mouth monthly. 6. Amlodipine 10 mg by mouth daily. HPI AND HOSPITAL SUMMARY: Please see the full history and physical by Dr. Maria L Murrieta for full details. Briefly, Mr. Taylor is a 75-year-old male with a past medical history as above who presented to the hospital with epigastric pain. The patient had a recent workup for pulmonary nodule that was negative for malignancy. He had some PET scan uptake in his throat as well, and he was sent to ENT and no evidence of malignancy was found. The patient had a CT scan that showed a pancreatic lesion. There was a concern that this could possibly be malignant. His lipase was mildly elevated. Oncology was consulted, recommended repeat scans as well as a GI consult. Dr. Garcia evaluated the patient and felt that his symptoms were likely due to pancreatitis. On repeat scan, the patient did have some peripancreatic inflammation. He was placed on clear liquids; however, he still had abdominal pain, so he was made n.p.o. Over the following days, the patient's symptoms improved. The patient's blood pressures became high while in the hospital. He was started on hydrochlorothiazide; however, this made his sodium low. His sodium nadired at 120. The patient was asymptomatic at that time. His hydrochlorothiazide was stopped, and his sodium was trending in the right direction on the day of discharge. He was tolerating a diet with no issues as well. The patient will be discharged home with a low fat diet. He was instructed to stop drinking alcohol as this was the likely cause of his pancreatitis. The patient will follow up with Dr. Garcia and will need a repeat CAT scan to evaluate this lesion in 4 to 6 weeks. TIME SPENT: Total time spent on this discharge 45 minutes. This is the summary of the hospitalization. Please see the full medical record for further details. CC: Dr. Haresh Bueno; Darlin Hood MD; Riki Garcia MD* [id number]/[facility] #: [id number] [facility]
== END 2016-05-19 15:40 | disposition home or self-care (01) | DRG 282 ==
LOC: ED 18:32 → MED 05-14 01:50
PROVIDERS: ADMIT Pediatrics; ATTEND Hospitalist
DX: K85.90 Acute pancreatitis without necrosis or infection, unspecified (principal); K86.3 Pseudocyst of pancreas; J44.9 Chronic obstructive pulmonary disease, unspecified; E87.1 Hypo-osmolality and hyponatremia; J98.11 Atelectasis; Z72.89 Other problems related to lifestyle; I73.9 Peripheral vascular disease, unspecified; I10 Essential (primary) hypertension; R59.9 Enlarged lymph nodes, unspecified; Z79.82 Long term (current) use of aspirin; Z95.5 Presence of coronary angioplasty implant and graft; F17.210 Nicotine dependence, cigarettes, uncomplicated; R05 Cough; R91.1 Solitary pulmonary nodule; N40.0 Benign prostatic hyperplasia without lower urinary tract symptoms; M81.0 Age-related osteoporosis without current pathological fracture
CPT/HCPCS: 36415; 71010; 71260; 74177; 80048; 80053; 80061; 81003; 83605; 83690; 83735; 83930; 83935; 84300; 85025; 86140; 93005; 94760; 99255; 99406; A9270-GY; J1170; J1644; J2270; J2405; J3480; Q9967

== ENCOUNTER 2016-05-21 08:33 | Inpatient (IN) | payer BC ==
--- NOTE | 2016-05-21 08:46 | ED ---
Abdominal Pain/Male - HPI Summary HPI Summary: Pt presents to ED through amb triage. Pt is a 75 yo male with a past medical hx of ETOH, nicotine, hyponatremia, and recent admission/discharge for pancreatitis. Pt was discharged on 05/19/16 with oxycodone, low fat diet and PCP f/u. Pt states yesterday (05/20) symptoms returned. Pt states last night ate a chicken pot pie and pain increased since. Pt reports significant pain with little improvement with Oxycodone. nausea, no vomiting. No fevers, chills. mild back pain. No chills - History of Current Complaint Stated Complaint: ABD PAIN Time Seen by Provider: 05/21/16 08:39 Hx Obtained From: Patient, Medical Records Onset/Duration: Gradual Onset Timing: Constant Severity Initially: Moderate Severity Currently: Moderate Pain Intensity: 9 Pain Scale Used: 0-10 Numeric Location: Epigastric Radiates to: Back Character: Sharp, Cramping, Tearing Aggravating Factor(s): Food Alleviating Factor(s): Nothing Associated Signs And Symptoms: Positive: Decreased Appetite, Nausea. Negative: Fever, Cough - Allergies/Home Medications Allergies/Adverse Reactions: Allergies Allergy/AdvReac Type Severity Reaction Status Date / Time No Known Allergies Allergy Verified 03/07/16 13:18 PMH/Surg Hx/FS Hx/Imm Hx Previously Healthy: Yes Endocrine/Hematology History: Denies: Hx Anticoagulant Therapy, Hx Blood Disorders, Hx Blood Transfusions, Hx Bone Marrow Disease, Hx Diabetes, Hx Systemic Lupus Erythematosus, Hx Sickle Cell Disease, Hx Thyroid Disease, Hx Anemia, Hx Unexplained Bleeding, Other Endocrine/Hematological Disorders Cardiovascular History: Reports: Hx Hypertension, Hx Peripheral Vascular Disease Denies: Hx Aneurysm, Hx Angina, Hx Angioplasty, Hx Auto Implanted Cardiovert Defib, Hx Cardiac Arrest, Hx Cardiomegaly, Hx Congenital Heart Disease, Hx Congestive Heart Failure, Hx Coronary Artery Disease, Hx Deep Vein Thrombosis, Hx Embolism, Hx Hypercholesterolemia, Hx Hypotension, Hx Pacemaker/ICD, Hx Rheumatic Fever, Hx Syncope, Hx Valvular Heart Disease, Other Cardiovascular Problems/Disorders Respiratory History: Denies: Hx Asthma, Hx Chronic Bronchitis, Hx Chronic Obstructive Pulmonary Disease (COPD), Hx Cystic Fibrosis, Hx Lung Cancer, Hx Pleural Effusion, Hx Pneumonia, Hx Pulmonary Edema, Hx Pulmonary Embolism, Hx Seasonal Allergies, Hx Sleep Apnea, Other Respiratory Problems/Disorders GI History: Denies: Hx Cirrhosis, Hx Crohn's Disease, Hx Diverticulosis, Hx Gall Bladder Disease, Hx Gastroesophageal Reflux Disease, Hx Gastrointestinal Bleed, Hx Hiatal Hernia, Hx Irritable Bowel, Hx Jaundice, Hx Obstructive Bowel, Hx Ileostomy, Hx Pyloric Stenosis, Hx Ulcer, Other GI Disorders History: Denies: Hx Acute Renal Failure, Hx Benign Prostatic Hyperplasia, Hx Chronic Renal Failure, Hx Dialysis, Hx Kidney Infection, Hx Kidney Stones, Other Problems/Disorders Musculoskeletal History: Denies: Hx Arthritis, Hx Back Problems, Hx Bursitis, Hx Congenital Bone Abnormalities, Hx Fibromyalgia, Hx Gout, Hx Orthopedic Injury, Hx Osteoporosis, Hx Scoliosis, Hx Tendonitis, Other Musculoskeletal History Sensory History: Reports: Hx Contacts or Glasses Denies: Hx Cataracts, Hx Eye Injury, Hx Eye Prosthesis, Hx Glaucoma, Hx Legally Blind, Hx Macular Degeneration, Hx Vision Problem, Hx Deafness, Hx Hearing Aid, Hx Hearing Problem, Other Sensory Impairments Opthamlomology History: Reports: Hx Contacts or Glasses Denies: Hx Cataracts, Hx Eye Injury, Hx Eye Prosthesis, Hx Glaucoma, Hx Legally Blind, Hx Macular Degeneration, Hx Vision Problem, Other Sensory Impairments Neurological History: Denies: Hx Dementia, Hx Developmental Delay, Hx Headaches, Hx Migraine, Hx Nerve Disease, Hx Seizures, Hx Spinal Cord Injury, Hx Transient Ischemic Attacks (TIA), Other Neuro Impairments/Disorders Psychiatric History: Denies: Hx Anxiety, Hx Attention Deficit Hyperactivity Disorder, Hx Eating Disorder, Hx Depression, Hx Panic Disorder, Hx Post Traumatic Stress Disorder, Hx Inpatient Treatment, Hx Community Mental Health Tx, Hx Schizophrenia, Hx Bipolar Disorder, Hx Suicide Attempt, Hx of Violent Episodes Against Others, Hx Substance Abuse, Other Psychiatric Issues/Disorders - Cancer History Hx Chemotherapy: No Hx Radiation Therapy: No Hx Palliative Cancer Treatment: No - Surgical History Surgery Procedure, Year, and Place: cardiac stents angioplasty 4 yrs ago-LEFT SIDE AT [facility] BY DR. CROOKS, ONE DONE AT [facility] 3YRS AGO. APPENDECTOMY Hx Anesthesia Reactions: No Infectious Disease History: Denies: Hx Clostridium Difficile, Hx Hepatitis, Hx Human Immunodeficiency Virus (HIV), Hx of Known/Suspected MRSA, Hx Shingles, Hx Tuberculosis, History Other Infectious Disease - Family History Known Family History: Positive: Other - Negative: malignant hyperthermia, anesthesia reaction - Social History Alcohol Use: Daily Alcohol Amount: 4-5 cans a/day Hx Substance Use: No Substance Use Type: Reports: None Hx Tobacco Use: Yes Smoking Status (MU): Heavy Every Day Tobacco Smoker Type: Cigarettes Amount Used/How Often: 1PPD Length of Time of Smoking/Using Tobacco: 50+ YEARS Have You Smoked in the Last Year: Yes Review of Systems Constitutional: Negative Eyes: Negative ENT: Negative Cardiovascular: Negative Respiratory: Negative Gastrointestinal: Negative Positive: Abdominal Pain, Nausea. Negative: Diarrhea Genitourinary: Negative Musculoskeletal: Negative Skin: Negative Neurological: Negative Psychological: Normal All Other Systems Reviewed And Are Negative: Yes Physical Exam Triage Information Reviewed: Yes Vital Signs Reviewed: Yes Appearance: Positive: Well-Nourished, Pain Distress Skin: Positive: Warm, Skin Color Reflects Adequate Perfusion, Dry Head/Face: Positive: Normal Head/Face Inspection Eyes: Positive: Normal, EOMI, [place] ENT: Positive: Pharynx normal - lips dry, mm pasty, TMs normal Neck: Positive: Supple Respiratory/Lung Sounds: Positive: Clear to Auscultation, Breath Sounds Present , Rales Cardiovascular: Positive: Normal, RRR Abdomen Description: Positive: Nontender Bowel Sounds: Positive: Present Neurological: Positive: Normal, Sensory/Motor Intact, Alert, Oriented to Person Place, Time Psychiatric: Positive: Normal AVPU Assessment: Alert - [place] Coma Scale Best Eye Response: 4 - Spontaneous Best Motor Response: 6 - Obeys Commands Best Verbal Response: 5 - Oriented Diagnostics - Laboratory Result Diagrams: 05/21/16 09:15 05/21/16 09:15 Lab Statement: Any lab studies that have been ordered have been reviewed, and results considered in the medical decision making process. Re-Evaluation - Re-Evaluation First Eval Re-Evaluation Time: 10:15 Change: Improved - Pain improved after dilaudid continues NPO d/w Dr. Mason - accepting pt to medicine service Abdominal Pain Fem Course/Dx - Course Assessment/Plan: Pt presents with report of nausea and increased abdominal pain x 24 hours - pt with recent admission for pancreatitis. Pt reports nausea, no vomiting. Will check labs, IVF, analgesia. reassess - Diagnoses Provider Diagnoses: Pancreatitis, Elevated troponin - Provider Notifications Discussed Care Of Patient With: Dr. Mason accepting pt to [facility] - [id number] Instructed by Provider To: Admit As Observation Discharge - Discharge Plan Condition: Stable Disposition: ADMITTED TO [facility]
[2016-05-21] MEDS ORDERED: NS 0.9% 1000 ML* 1,000 ML IV ONE (08:49)
[2016-05-21] MEDS ORDERED: HYDROmorphone INJ* 1 MG/ML CARPUJECT SYRINGE IV SLOW PU ONE (09:04)
[2016-05-21 09:34] LABS: Hematocrit 51 % (42-52); Hemoglobin 17.3 g/dl (14.0-18.0); Mean Corpuscular HGB Conc 34 g/dl (31-36); Mean Corpuscular Hemoglobin 35 pg (27-31); Mean Corpuscular Volume 102 fL (80-94); Mean Platelet Volume 9 um3 (7.4-10.4); Red Cell Distribution Width 14 % (10.5-15); White Blood Count 13.3 10^3/ul (3.5-10.8)
[2016-05-21 09:35] LABS: Add Diff/Slide Review? Slide Review Added; Comments Flag Yes
[2016-05-21 09:46] LABS: ALT 23 U/L (7-52); AST 20 U/L (13-39); Albumin 3.3 g/dL (3.2-5.2); Alkaline Phosphatase 103 U/L (34-104); Amylase 215 U/L (29-103); Anion Gap 9 mmol/L (2-11); BUN/Creatinine Ratio 25.3 (8-20); Blood Urea Nitrogen 23 mg/dL (6-24); CO2 Carbon Dioxide 30 mmol/L (22-32); Calcium 9.2 mg/dL (8.6-10.3); Chloride 90 mmol/L (101-111); EGFR Non-African American 81.7 (>60); Globulin 3.5 g/dL (2-4); Glucose 158 mg/dL (70-100); Lipase 170 U/L (11.0-82.0); Potassium 3.2 mmol/L (3.5-5.0); Sodium 129 mmol/L (133-145); Total Protein 6.8 g/dL (6.4-8.9)
[2016-05-21 09:53] LABS: Troponin I 0.04 ng/mL (<0.04)
[2016-05-21 10:08] LABS: Alcohol < 10 mg/dL (<10)
[2016-05-21] MEDS ORDERED: Albuterol 2.5 MG/3 ML NEB.SOL* (0.083%) INH PRN (10:10)
[2016-05-21] MEDS ORDERED: Morphine INJ* 2 MG/ML 1 ML CARPUJECT IV PRN (10:10)
[2016-05-21] MEDS ORDERED: KCL 10 MEQ/50 ML IVPREMIX* 10 MEQ/50 ML BAG IV ONE (10:47)
[2016-05-21] MEDS ORDERED: Metoprolol Tartrate IV* 1 MG/ML 5 ML VIAL IV PRN (11:28)
[2016-05-21] MEDS ORDERED: Nicotine Inhaler* 10 MG AMP INH PRN (11:30)
[2016-05-21] MEDS ORDERED: Mouth Piece, Nicotine* 1 EACH CARTRIDGE INH ONE (12:00)
[2016-05-21] MEDS ORDERED: Gadoteridol* (CONTRAST) 279.3 MG/ML 10 ML IV ONE (13:09)
--- NOTE | 2016-05-21 13:35 | HP ---
HISTORY AND PHYSICAL: DATE OF ADMISSION: 05/21/16 CHIEF COMPLAINT: Abdominal pain. HISTORY OF PRESENT ILLNESS: Mr. Taylor is a 75-year-old male who was just diagnosed with pancreatitis and discharged from our facility 2 days ago on 05/19. The patient stated that at the time of discharge he did not have any abdominal pain. On 05/20/16, in the morning he had scrambled eggs and then stated that slowly during the daytime the pain had been recurring. For supper on 05/20/16, the patient had chicken pot pie and the pain recurred. He comes over for evaluation today in the morning complaining of abdominal pain, the same as previously due to pancreatitis. He also had been constipated and the last bowel movement was 3 days ago. PAST MEDICAL HISTORY: 1. Questionable history of COPD, but the patient is not on inhalers at home and he continues to smoke. 2. Peripheral vascular disease, status post femoral popliteal bypass. 3. Hypertension. 4. History of left hip fracture, status post repair. 5. Recent pancreatitis thought to be due to alcohol. There was also a question of pancreatic mass with pseudocyst and the patient was recommended to followup with Dr. Garcia in approximately 4 to 6 weeks. 7. History of lung nodules with pathology yielding inflammatory changes only. Under the care of Dr. Hood. MEDICATIONS: Unchanged from discharge medications and also include: 1. Baclofen 10 mg 3 times a day p.r.n. for hiccups. 2. Tessalon Perles 100 mg 3 times a day for cough. 3. Percocet 5/325, the patient is supposed to take 2 tablets by mouth every 6 hours for pain. 4. Aspirin 81 mg daily. 5. Boniva 150 mg monthly. 6. Amlodipine 10 mg daily. Please note that the patient was placed on HYDROCHLOROTHIAZIDE during her last hospital stay and developed hyponatremia and that was discontinued. ALLERGIES: Otherwise no known drug allergies apart from that HYDROCHLOROTHIAZIDE causes hyponatremia. FAMILY HISTORY: The patient is adopted, otherwise unknown. SOCIAL HISTORY: The patient has history of over [id number] smoking and he still continues to smoke up to 1 pack a day. He used to drink 5 beers a day and he had not drunk any alcohol since his discharge on the of this month. He denies any drug use. He is currently retired and he lives at home with his , Cely, who works at [employer]. Cely would be the patient's healthcare proxy. REVIEW OF SYSTEMS: Please see history of present illness. In addition to above mentioned, the patient stated that he lost at least 7 pounds since February and that was unintentional. He has chronic cough, but it does not appear to bother him. He denies shortness of breath. His last bowel movement was 3 to 4 days ago. The abdominal pain is localized in the periumbilical area, gets worse when he coughs. All the remaining 14 systems were reviewed with the patient and were otherwise negative. PHYSICAL EXAMINATION GENERAL: The patient is a very pleasant 75-year-old male of thin body habitus. The patient is in no acute distress. Alert and awake and oriented x3. VITAL SIGNS: Blood pressure is 155/76, heart rate of 98 and regular, respiratory rate 23, oxygen saturation 97% on 2 L of oxygen nasal cannula, temperature is 98.9. HEENT: Head: Atraumatic, normocephalic. Eyes: Pupils are equal, reactive to light and accommodation. Oropharynx clear. Mucosa moist. NECK: Supple. No JVD, no bruits bilaterally. CARDIOVASCULAR: Regular rate and rhythm. No murmur. RESPIRATORY: Distant breath sounds bilaterally. No wheezes. ABDOMEN: Soft. Tender in the epigastric region with no rebound, no guarding. Bowel sounds are positive in all 4 quadrants. LOWER EXTREMITIES: There is no edema. Pulses are +2 bilaterally. No clubbing or cyanosis. SKIN: Upon evaluation of the skin, no ecchymotic areas or rashes are noted. NEURO: Speech clear. Cranial nerves II through XII are grossly intact. Motor strength is 5/5 bilaterally. LABORATORY DATA: White blood cell count of 13.3, hemoglobin 17.3, hematocrit of 51, MCV of 102, platelets of 248. Sodium of 129, potassium 3.2, chloride 90, carbon dioxide 30, BUN 22, creatinine 0.9. Liver function tests were unremarkable. Troponin was 0.04. Amylase of 215, lipase of 170 Serum alcohol level below 10. IMAGING: EKG: Showed sinus tachycardia with a heart rate of 97 beats per minute with PVC's and PAC's and ST depression in leads V4 to V6. Comparing with an EKG taken previously a week ago, the PVC's are new, but otherwise the ST depressions were present. ASSESSMENT AND PLAN: 1. In regards to the patient's acute pancreatitis, his lipase is only 170. The patient's lipase was 121 on 05/17/16. At this point, the patient is going to be placed on n.p.o. diet with intravenous fluids once again and Protonix IV for GI prophylaxis while n.p.o. I will place him on observation with hopes that in the morning the patient's diet can be advanced. 2. In regards to questionable pancreatic mass, an MRI of the abdomen is going to be obtained. The patient did have weight loss in the past several months. Otherwise, if that is not conclusive, he will need to follow up with his cyanide case hardener as an outpatient. 3. In regards to the patient's hyponatremia, that is actually improved from prior. The patient became hyponatremic due to HYDROCHLOROTHIAZIDE, which was discontinued during his last hospital stay. We will monitor it on IV fluids. 4. In regards to tobacco cessation, the patient was consulted for approximately 5 minutes. He is going to be placed on nicotine patch and inhalers. 5. The patient's indeterminate troponin, the patient has no symptomatology of cardiac issues at this point. He denies any shortness of breath or chest pain. Nevertheless, his troponin was indeterminate and he is going to be placed on telemetry monitored bed for the next 24 hours or so. 6. In regards to chronic obstructive pulmonary disease, the patient states that he did not use inhalers in the past. I will place him on Dulera. It does not appear to be an exacerbation, but he has very distant breath sounds bilaterally. 7. In regards to the patient's hypertension, the patient is going to be placed on Lopressor IV while n.p.o. Norvasc is going to be held. Please also note that the patient develops hyponatremia due to HYDROCHLOROTHIAZIDE. 8. For the patient's hypokalemia, he will be placed on IV. 9. For DVT prophylaxis, the patient is going to be placed on heparin subcutaneously. 10. The patient's code status is full. TIME SPENT: Approximately 72 minutes was spent on admission of the patient, more than half the time was spent [id number] with the patient doing the interview and physical exam. CC: Dr. Bueno; Dr. Hood; Dr. Garcia; Dr. Carmichael; Dr. Hyde * [id number]/[facility] #: [id number] [facility]
[2016-05-21] MEDS: Heparin VIAL(*) 5000 UNITS/ML VIAL (FIVE THOUSAND) SUBCUT SCH ×2 (13:42→22:19)
[2016-05-21] MEDS: Nicotine PATCH 14 MG/24 HR* PATCH TRANSDERM SCH (13:42)
[2016-05-21] MEDS: Mometasone/Formoter 100/5 MDI INH SCH ×2 (14:18→19:29)
--- NOTE | 2016-05-21 14:35 | RAD ---
Indication: Pancreas mass noted on CT. Image Sequences: Axial diffusion, axial T2 fat sat, coronal T2, and MRCP images were obtained. Water weighted images were obtained. Dynamic axial images were obtained during intravenous injection of 17 mL of ProHance. Correlation is made with the previous CT of the chest, abdomen and pelvis dated February 15, 2016. In the neck of the pancreas, there is an irregular shaped nonenhancing fluid collection measuring 2.9 x 2.0 cm. In addition, there is peripancreatic fluid collection measuring up to 2.9 x 3.8 cm which communicates with this nonenhancing fluid collection in the neck of the pancreas. There is pancreatic duct dilatation. This does not enhance and may represent a cystic lesion such as pancreatitis with cyst formation. On the prior CT, there appears to be a calcification presumably within the pancreatic duct measuring 4 mm which may be causing the pancreatitis. Peripancreatic fluid is noted. This may represent pancreatitis from pancreatic duct obstruction. A small amount of peripancreatic fluid is noted in the lesser sac. There is a small amount of ascites noted. This likely represents progressive pancreatitis. No adrenal masses are noted. Cortical cyst is noted in the left kidney. No retroperitoneal lymphadenopathy IMPRESSION: Irregular shaped enhancing fluid-filled collection anterior to the neck of The pancreas measuring 2.9 x 3.8 cm, appears to be larger than on previous examination. Fluid now extends along the lesser sac along the lesser curvature of the stomach. There is a small amount of ascites noted. Findings are consistent with pancreatic pseudocyst. Findings discussed with Dr. Garcia.
[2016-05-21] MEDS: D5W NS 0.9% 20Meq KCL 1000 ML* 1,000 ML IV SCH ×2 (15:38→23:45)
--- NOTE | 2016-05-21 15:54 | CONS ---
GASTROENTEROLOGY CONSULTATION DATE OF CONSULTATION: 05/21/2016. REASON FOR CONSULTATION: Abdominal pain secondary to pancreatitis. HISTORY OF PRESENT ILLNESS: Mr. Taylor is a 75-year-old gentleman with a history of alcohol use on a regular basis, cigarette smoking and COPD. He was admitted a week ago with epigastric pain which worsened with a deep breath and was found to have an elevated lipase and a CT scan which I reviewed showing inflammatory pancreatitis with a cystic lesion in the pancreas and a dilated pancreatic duct. He was treated conservatively, although required about four to five days in the hospital for pain control and was discharged about 48 hours ago feeling generally well. He was eating and not requiring regular narcotics. Yesterday, he had eggs and then chicken pot pie following that and developed the recurrence of his abdominal pain that did not break with oral narcotics. He presented to our emergency room. Laboratory data on admission here was notable for a lipase of 170, a amylase of 215, normal liver panel, a BUN of 23, a creatinine of 0.9, and a white count of 13.3. The patient did have imaging, which I did review which included an MRI scan of the abdomen and MRCP. That continued to demonstrate interstitial inflammatory change around the pancreas, as well as enlargement of the pancreatic cyst to about 2.5 to 3 cm and a dilated pancreatic duct with probable calcification within the duct. It retrospect, the patient did have a CT scan of the abdomen back in February of 2016 which also showed the calcification. The patient was therefore admitted. The patient denies any prior history of pancreatitis other than last week, although he does state that through the years he does get periodic epigastric pain that perhaps lasts a day and then resolves. He has never required hospitalization for this. PAST MEDICAL HISTORY: COPD, cigarette smoking, peripheral vascular disease, hypertension. MEDICATIONS ON ADMISSION: Baclofen, Tessalon Perles, Percocet as needed, baby aspirin, Boniva, Amlodipine. FAMILY HISTORY: Negative for pancreatitis. SOCIAL HISTORY: Habits include a 50 pack year smoking history. He has on a chronic basis drank about five beers a day, although since discharge has not been drinking. REVIEW OF SYSTEMS: He denies any fevers, chills, jaundice, GI bleeding, nausea or vomiting. PHYSICAL EXAM: General: He is a thin gentleman, appearing relatively comfortable in no acute distress. Vital Signs: Temperature is 97.5, blood pressure is 149/73, heart rate is 96 and regular. He appears clinically euvolemic. He is anicteric. Cardiac: Exam reveals a regular rhythm without murmur. Abdomen: Soft without distention. There is tenderness in the epigastrium without rebound or guarding. Bowel sounds are hypoactive at present. IMPRESSION: [id number]-old gentleman who was recently discharged for acute pancreatitis, presenting with ongoing pain. Imaging demonstrates calcification of the pancreas, a dilated duct and enlargement of the cyst, although the cyst is still quite small at about 2 to 3 cm. The fact that there is calcification of the pancreas, that actually proceeds the onset of pain going back to February of 2016 CT scan, implies that he likely has chronic pancreatitis and perhaps these periodic episodes of epigastric pain he has had in the past could have been attacks of acute pancreatitis. The etiology is likely alcohol ingestion. The fact that his cyst has enlarged in a short period of time likely implies that it is a pseudocyst, not a cystic neoplasm. At this point, I would recommend continuing pain control, clear liquids, and monitoring. There is no sign of infection; however, if his pain continues and is unrelieved over the next several weeks, then perhaps referral to a tertiary care facility to evaluate endoscopic or surgical approaches for cyst drainage and reduction in pancreatic duct distortions would be considered and that was discussed with him and his . It is also possible that his increased fat consumption at home with eggs and a chicken pot pie might have provoked this attack and that was discussed with him. It was impressed upon to be on a low fat diet when he gets discharged. CC: Dr. Bueno * [id number]/[facility] #: [id number] KIMBER
[2016-05-21] MEDS: HYDROmorphone INJ* 1 MG/ML CARPUJECT SYRINGE IV SLOW PU PRN ×2 (20:00→23:54)
[2016-05-21] MEDS: Nicotine Patch Removal NOTE PATCH OFF SCH (22:19)
[2016-05-22] MEDS: HYDROmorphone INJ* 1 MG/ML CARPUJECT SYRINGE IV SLOW PU PRN ×4 (04:09→21:47)
[2016-05-22] MEDS: Heparin VIAL(*) 5000 UNITS/ML VIAL (FIVE THOUSAND) SUBCUT SCH ×3 (05:29→21:46)
[2016-05-22 06:28] LABS: Hematocrit 43 % (42-52); Hemoglobin 14.6 g/dl (14.0-18.0); Mean Corpuscular HGB Conc 34 g/dl (31-36); Mean Corpuscular Hemoglobin 35 pg (27-31); Mean Corpuscular Volume 103 fL (80-94); Mean Platelet Volume 9 um3 (7.4-10.4); Red Blood Count 4.15 10^6/ul (4.0-5.4); Red Cell Distribution Width 15 % (10.5-15); White Blood Count 15.1 10^3/ul (3.5-10.8)
[2016-05-22 06:30] LABS: Comments Flag Yes
[2016-05-22 06:32] LABS: Add Diff/Slide Review? Manual Diff Added
[2016-05-22 06:51] LABS: Albumin 2.4 g/dL (3.2-5.2); BUN/Creatinine Ratio 22.2 (8-20); Calcium 7.8 mg/dL (8.6-10.3); EGFR African American 137.6 (>60); Globulin 2.6 g/dL (2-4); Potassium 3.6 mmol/L (3.5-5.0); Total Bilirubin 0.7 mg/dL (0.2-1.0)
[2016-05-22 06:53] LABS: Immature Granulocytes 4 % (0-9); Neutrophil % 93 % (38-83); Reactive Lymph % 1 % (0-6)
[2016-05-22 06:54] LABS: Macrocytosis 1+
[2016-05-22] MEDS: Pantoprazole IV* 40 MG IV SCH (08:16)
[2016-05-22] MEDS: D5W NS 0.9% 20Meq KCL 1000 ML* 1,000 ML IV SCH ×3 (08:16→19:47)
[2016-05-22] MEDS: Mometasone/Formoter 100/5 MDI INH SCH ×2 (09:29→20:25)
[2016-05-22] MEDS: Nicotine PATCH 14 MG/24 HR* PATCH TRANSDERM SCH (14:10)
[2016-05-22] MEDS ORDERED: NS 0.9% 1000 ML* 1,000 ML IV ONE (17:09)
[2016-05-22 17:58] LABS: Hematocrit 44 % (42-52); Hemoglobin 14.6 g/dl (14.0-18.0); Mean Corpuscular HGB Conc 33 g/dl (31-36); Mean Corpuscular Hemoglobin 34 pg (27-31); Mean Corpuscular Volume 105 fL (80-94); Mean Platelet Volume 9 um3 (7.4-10.4); Red Blood Count 4.23 10^6/ul (4.0-5.4); Red Cell Distribution Width 15 % (10.5-15); White Blood Count 15.9 10^3/ul (3.5-10.8)
--- NOTE | 2016-05-22 18:05 | RAD ---
INDICATION: Shortness of breath. COMPARISON: Comparison is made with a prior study from May 16, 2016. TECHNIQUE: A portable view of the chest was obtained. FINDINGS: Cardiac and mediastinal contours appear to be within normal limits. There is mild prominence of the interstitial markings. There is a new small focal infiltrate at the left lung base and a new small left pleural effusion. IMPRESSION: LEFT BASILAR INFILTRATE AND SMALL PLEURAL EFFUSION.
[2016-05-22] MEDS: Baclofen TAB* 10 MG PO PRN (19:45)
[2016-05-22] MEDS: Levofloxacin 750 MG IVPREMIX(* 750 MG/150 ML BAG IVPB SCH (19:54)
--- NOTE | 2016-05-22 20:35 | PN ---
Subjective Date of Service: 05/22/16 Interval History: Patient continues to have abdominal pain. He also complains now of shortness of breath. He denies chest pain. He denies nausea or vomiting. He states he has had no stool since Thursday. Objective Active Medications: Albuterol (Ventolin 2.5 Mg/3 Ml Neb.Sultana*) 2.5 mg INH [id number] AWAKE PRN PRN Reason: sob/wheezing Baclofen (Lioresal Tab*) 10 mg PO TID PRN PRN Reason: HICCUPS Last Admin: 05/22/16 19:45 Dose: 10 mg Heparin Sodium (Porcine) (Heparin Vial(*)) 5,000 units SUBCUT Q8HR [facility] Last Admin: 05/22/16 14:10 Dose: 5,000 units Hydromorphone HCl (Dilaudid Iv*) 1 mg IV SLOW PU Q4H PRN PRN Reason: PAIN Last Admin: 05/22/16 14:18 Dose: 1 mg Potassium Chloride/Dextrose (D5w Ns 0.9% 20meq Kcl 1000 Ml*) 1,000 mls @ 125 mls/hr IV PER RATE [facility] Last Admin: 05/22/16 19:47 Dose: 125 mls/hr Levofloxacin/Dextrose (Levaquin 750 Mg Ivpremix(*)) 750 mg in 150 mls @ 100 mls /hr IVPB Q24H [facility] Last Admin: 05/22/16 19:54 Dose: 100 mls/hr Metoprolol Tartrate (Lopressor Iv*) 5 mg IV Q6H PRN PRN Reason: BLOOD PRESSURE Mometasone Furoate/Formoterol Fumar (Dulera 100/5 Mdi*) 2 puff INH BID [facility] Last Admin: 05/22/16 20:25 Dose: 2 puff Nicotine (Nicotine Inhaler*) 10 mg INH Q2H PRN PRN Reason: CRAVING Last Admin: 05/21/16 13:39 Dose: 10 mg Nicotine (Nicotine Patch 14 Mg/24 Hr*) 1 patch TRANSDERM Q24H [facility] Last Admin: 05/22/16 14:10 Dose: 1 patch Pantoprazole Sodium (Protonix Iv*) 40 mg IV DAILY [facility] Last Admin: 05/22/16 08:16 Dose: 40 mg Pharmacy Profile Note (Nicotine Patch Removal Note*) 1 note PATCH OFF 2100 [facility] Last Admin: 05/21/16 22:19 Dose: 1 note Vital Signs 05/21/16 05/21/16 05/22/16 21:00 23:54 00:24 Temperature 98.4 F Pulse Rate 115 Respiratory 16 16 20 Rate Blood Pressure 152/79 (mmHg) O2 Sat by Pulse 92 Oximetry 05/22/16 05/22/16 05/22/16 00:54 04:09 04:19 Temperature 98.0 F Pulse Rate 111 Respiratory 20 16 16 Rate Blood Pressure 147/73 (mmHg) O2 Sat by Pulse 88 Oximetry 05/22/16 05/22/16 05/22/16 04:31 04:34 05:05 Temperature Pulse Rate Respiratory 18 Rate Blood Pressure (mmHg) O2 Sat by Pulse 92 94 Oximetry 05/22/16 05/22/16 05/22/16 07:41 08:26 08:30 Temperature 97.6 F 97.3 F Pulse Rate 97 90 Respiratory 16 20 20 Rate Blood Pressure 152/71 176/83 (mmHg) O2 Sat by Pulse 92 90 Oximetry 05/22/16 05/22/16 05/22/16 08:42 09:30 09:33 Temperature Pulse Rate 74 98 Respiratory 18 24 18 Rate Blood Pressure 156/84 (mmHg) O2 Sat by Pulse 89 91 Oximetry 05/22/16 05/22/16 05/22/16 12:07 14:18 15:18 Temperature 98.3 F Pulse Rate 89 Respiratory 16 22 20 Rate Blood Pressure 155/73 (mmHg) O2 Sat by Pulse 91 Oximetry 05/22/16 15:22 Temperature 97.4 F Pulse Rate 100 Respiratory 20 Rate Blood Pressure 160/83 (mmHg) O2 Sat by Pulse 95 Oximetry Oxygen Devices in Use Now: Nasal Cannula Appearance: Male sitting up in bed in NAD Respiratory: Symmetrical Chest Expansion and Respiratory Effort, - - Diminished bilaterally with egophony in bases Cardiovascular: NL Sounds; No Murmurs; No JVD, No Edema Abdominal: - - Tender to palpation in mid to right upper quadrant Extremities: No Edema Skin: No Rash or Ulcers Neurological: Alert and Oriented x 3, NL Muscle Strength and Tone Nutrition: Taking PO's Result Diagrams: 05/22/16 17:26 05/22/16 05:40 Assess/Plan/Problems-Billing Assessment: Mr. Taylor is a 75 yo male with PMH of recent admission for pancreatitis who returns with abdominal pain and concern for persistent pancreatitis, acute vs chronic, with pancreatic cyst. - Patient Problems (1) Pancreatitis Comment: Lipase essentially unchanged. Appreciate consultation from Dr. Garcia. High suspicion for pancreatic cyst only. Recommends that if pain persists over several weeks would refer to tertiary care facility for consideration of cyst drainage. Patient advanced to full liquid diet. Continue IVF and pain meds prn. (2) Pneumonia Comment: Patient with c/o SOB found to have left lower lobe infiltrate and persistent leukocytosis. Suspect pneumonia secondary to atelectasis and guarding with abdominal pain. Start IV levaquin. Monitor. (3) Hiccoughs Comment: Continue baclofen prn. (4) HTN (hypertension) Comment: Hold amlodipine while NPO. Metoprolol available prn. (5) DVT prophylaxis Comment: HSQ (6) Full code status Status and Disposition: Inpatient with expected LOS > 2 days. Anticipate discharge to home when medically stable.
[2016-05-22] MEDS: Nicotine Patch Removal NOTE PATCH OFF SCH (21:48)
[2016-05-23] MEDS: D5W NS 0.9% 20Meq KCL 1000 ML* 1,000 ML IV SCH (05:28)
[2016-05-23] MEDS: Heparin VIAL(*) 5000 UNITS/ML VIAL (FIVE THOUSAND) SUBCUT SCH ×3 (05:29→21:05)
[2016-05-23 06:26] LABS: Hematocrit 44 % (42-52); Hemoglobin 14.6 g/dl (14.0-18.0); Mean Corpuscular HGB Conc 34 g/dl (31-36); Mean Corpuscular Hemoglobin 35 pg (27-31); Mean Corpuscular Volume 104 fL (80-94); Mean Platelet Volume 9 um3 (7.4-10.4); Red Blood Count 4.17 10^6/ul (4.0-5.4); Red Cell Distribution Width 15 % (10.5-15); White Blood Count 15.2 10^3/ul (3.5-10.8)
[2016-05-23 06:40] LABS: C Reactive Protein 196.42 mg/L (< 5.00); Calcium 7.6 mg/dL (8.6-10.3); EGFR African American 160.5 (>60); EGFR Non-African American 124.8 (>60); Potassium 3.8 mmol/L (3.5-5.0)
[2016-05-23] MEDS: Mometasone/Formoter 100/5 MDI INH SCH ×2 (08:26→20:44)
[2016-05-23] MEDS: Pantoprazole IV* 40 MG IV SCH (09:34)
[2016-05-23] MEDS: Baclofen TAB* 10 MG PO PRN ×2 (10:35→20:12)
[2016-05-23] MEDS ORDERED: Polyethylene Glycol 3350* 17 GM PACKET PO PRN (11:20)
--- NOTE | 2016-05-23 11:25 | PN ---
Subjective Date of Service: 05/23/16 Interval History: Mr. Taylor states that he feels better today. He denies abdominal pain except with palpation. He denies shortness of breath but does have a cough. He denies chest pain. He has not passed any stool. Objective Active Medications: Albuterol (Ventolin 2.5 Mg/3 Ml Neb.Sultana*) 2.5 mg INH [id number] AWAKE PRN PRN Reason: sob/wheezing Baclofen (Lioresal Tab*) 10 mg PO TID PRN PRN Reason: HICCUPS Last Admin: 05/23/16 10:35 Dose: 10 mg Heparin Sodium (Porcine) (Heparin Vial(*)) 5,000 units SUBCUT Q8HR [facility] Last Admin: 05/23/16 05:29 Dose: 5,000 units Hydromorphone HCl (Dilaudid Iv*) 1 mg IV SLOW PU Q4H PRN PRN Reason: PAIN Last Admin: 05/22/16 21:47 Dose: 1 mg Levofloxacin/Dextrose (Levaquin 750 Mg Ivpremix(*)) 750 mg in 150 mls @ 100 mls /hr IVPB Q24H [facility] Last Admin: 05/22/16 19:54 Dose: 100 mls/hr Metoprolol Tartrate (Lopressor Iv*) 5 mg IV Q6H PRN PRN Reason: BLOOD PRESSURE Mometasone Furoate/Formoterol Fumar (Dulera 100/5 Mdi*) 2 puff INH BID [facility] Last Admin: 05/23/16 08:26 Dose: 2 puff Nicotine (Nicotine Inhaler*) 10 mg INH Q2H PRN PRN Reason: CRAVING Last Admin: 05/21/16 13:39 Dose: 10 mg Nicotine (Nicotine Patch 14 Mg/24 Hr*) 1 patch TRANSDERM Q24H [facility] Last Admin: 05/22/16 14:10 Dose: 1 patch Pantoprazole Sodium (Protonix Iv*) 40 mg IV DAILY [facility] Last Admin: 05/23/16 09:34 Dose: 40 mg Pharmacy Profile Note (Nicotine Patch Removal Note*) 1 note PATCH OFF 2100 [facility] Last Admin: 05/22/16 21:48 Dose: 1 note Vital Signs 05/22/16 05/22/16 05/22/16 21:47 22:00 22:47 Temperature Pulse Rate Respiratory 17 18 16 Rate Blood Pressure (mmHg) O2 Sat by Pulse Oximetry 05/22/16 05/23/16 05/23/16 23:24 03:46 07:55 Temperature 97.6 F 97.7 F 97.7 F Pulse Rate 111 108 107 Respiratory 16 16 16 Rate Blood Pressure 158/70 149/71 154/84 (mmHg) O2 Sat by Pulse 96 92 98 Oximetry 05/23/16 08:28 Temperature Pulse Rate 95 Respiratory 16 Rate Blood Pressure (mmHg) O2 Sat by Pulse 95 Oximetry Oxygen Devices in Use Now: Nasal Cannula Appearance: Male sitting up in bed in NAD Respiratory: Symmetrical Chest Expansion and Respiratory Effort, - - Clear, diminished in the bases Cardiovascular: NL Sounds; No Murmurs; No JVD, No Edema Abdominal: - - Soft, tenderness in mid to low epigastric region Extremities: No Edema Skin: No Rash or Ulcers Neurological: Alert and Oriented x 3 Nutrition: Taking PO's Result Diagrams: 05/23/16 05:04 05/23/16 05:04 Assess/Plan/Problems-Billing Assessment: Mr. Taylor is a 75 yo male with PMH of recent admission for pancreatitis who returns with abdominal pain and concern for persistent pancreatitis, acute vs chronic, with pancreatic cyst. - Patient Problems (1) Pancreatitis Comment: Lipase essentially unchanged. Appreciate consultation from Dr. Garcia. High suspicion for pancreatic cyst only. Recommends that if pain persists over several weeks would refer to tertiary care facility for consideration of cyst drainage. Continue full liquid diet, patient tolerating well. Stop IVF, hope to encourage mobility. Continue pain meds prn. (2) Pneumonia Comment: SOB improved. Has persistent cough and leukocytosis. Chest xray shows new left basilar infiltrate. CRP 196.42. Continue levaquin. Wean O2, currently at 2L. Encourage C/DB, IS, and mobility. (3) Constipation Comment: Patient reports no stool since Thursday. I do note that patient had oral contrast on 05/14/16. Plan to check abd xray now to r/o obstruction. Start bowel meds. Suspect this may be contributing to patient's discomfort. (4) Hiccoughs Comment: Continue baclofen prn. (5) HTN (hypertension) Comment: Hold amlodipine while NPO. Metoprolol available prn. (6) DVT prophylaxis Comment: HSQ (7) Hyperglycemia Comment: BG elevated in AM. Check HgbA1c. (8) Full code status Status and Disposition: Inpatient with expected LOS > 2 days. Anticipate discharge to home when medically stable.
[2016-05-23] MEDS: Nicotine PATCH 14 MG/24 HR* PATCH TRANSDERM SCH (12:26)
--- NOTE | 2016-05-23 12:53 | RAD ---
HISTORY: Constipation versus obstruction COMPARISONS: CT dated May 14, 2016 VIEWS: Frontal views of the abdomen. FINDINGS: BOWEL: There is a nonspecific bowel gas pattern, with nondilated small bowel gas noted. Oral contrast is noted within colon. There is a moderate amount of stool within the colon. There is gaseous distention of the colon without dilatation. CALCULI: There are no abnormal calculi. BONES AND SOFT TISSUES: The patient is status post left hip arthroplasty. OTHER FINDINGS: There is confluent alveolar opacification of the left lung base There is no subphrenic gas.. A vascular stent is noted on the right IMPRESSION: NONSPECIFIC BOWEL GAS PATTERN. LEFT BASILAR ATELECTASIS VERSUS CONSOLIDATION
[2016-05-23] MEDS: HYDROmorphone INJ* 1 MG/ML CARPUJECT SYRINGE IV SLOW PU PRN ×2 (14:57→21:05)
[2016-05-23] MEDS: Levofloxacin 750 MG IVPREMIX(* 750 MG/150 ML BAG IVPB SCH (20:08)
[2016-05-23] MEDS: Senna TAB PO SCH (20:12)
[2016-05-23] MEDS: Nicotine Patch Removal NOTE PATCH OFF SCH (21:05)
[2016-05-24] MEDS: Baclofen TAB* 10 MG PO PRN ×2 (05:49→11:26)
[2016-05-24] MEDS: Heparin VIAL(*) 5000 UNITS/ML VIAL (FIVE THOUSAND) SUBCUT SCH ×3 (05:49→20:49)
[2016-05-24] MEDS: Mometasone/Formoter 100/5 MDI INH SCH ×2 (09:33→23:07)
[2016-05-24] MEDS: Docusate CAP* 100 MG PO SCH (10:02)
[2016-05-24] MEDS: Pantoprazole IV* 40 MG IV SCH (10:03)
[2016-05-24] MEDS: HYDROmorphone INJ* 1 MG/ML CARPUJECT SYRINGE IV SLOW PU PRN ×3 (10:13→20:25)
[2016-05-24] MEDS: Nicotine PATCH 14 MG/24 HR* PATCH TRANSDERM SCH (11:26)
[2016-05-24] MEDS ORDERED: Baclofen TAB* 10 MG PO PRN (11:37)
[2016-05-24] MEDS: predniSONE TAB* 20 MG PO SCH (14:12)
--- NOTE | 2016-05-24 16:48 | PN ---
Subjective Date of Service: 05/24/16 Interval History: Mr. Taylor reports that he continues to be short of breath with a cough productive of clear sputum. He denies chest pain. He now denies nausea, vomiting, diarrhea, or abdominal pain. He is tolerating oral intake well. Objective Active Medications: Albuterol (Ventolin 2.5 Mg/3 Ml Neb.Sultana*) 2.5 mg INH [id number] AWAKE PRN Baclofen (Lioresal Tab*) 10 mg PO BEDTIME [facility] Baclofen (Lioresal Tab*) 10 mg PO Q6H PRN Docusate Sodium (Colace Cap*) 100 mg PO DAILY [facility] Heparin Sodium (Porcine) (Heparin Vial(*)) 5,000 units SUBCUT Q8HR [facility] Hydromorphone HCl (Dilaudid Iv*) 1 mg IV SLOW PU Q4H PRN Levofloxacin/Dextrose (Levaquin 750 Mg Ivpremix(*)) 750 mg in 150 mls @ 100 mls /hr IVPB Q24H [facility] Lactated Ringer's (Lactated Ringers 1000 Ml Bag*) 1,000 mls @ 125 mls/hr IV PER RATE [facility] Metoprolol Tartrate (Lopressor Iv*) 5 mg IV Q6H PRN Mometasone Furoate/Formoterol Fumar (Dulera 100/5 Mdi*) 2 puff INH BID [facility] Nicotine (Nicotine Inhaler*) 10 mg INH Q2H PRN Nicotine (Nicotine Patch 14 Mg/24 Hr*) 1 patch TRANSDERM Q24H [facility] Pantoprazole Sodium (Protonix Iv*) 40 mg IV DAILY [facility] Pharmacy Profile Note (Nicotine Patch Removal Note*) 1 note PATCH OFF 2100 [facility] Polyethylene Glycol/Electrolytes (Miralax*) 17 gm PO DAILY PRN Prednisone (Deltasone Tab*) 40 mg PO DAILY [facility] Senna (Senokot Tab*) 1 tab PO BEDTIME [facility] Vital Signs 05/23/16 05/23/16 05/23/16 19:41 20:00 20:49 Temperature 97.9 F Pulse Rate 116 111 Respiratory 18 18 20 Rate Blood Pressure 151/92 (mmHg) O2 Sat by Pulse 93 95 Oximetry 05/23/16 05/23/16 05/23/16 21:05 22:05 23:44 Temperature 98.2 F Pulse Rate 116 Respiratory 17 17 18 Rate Blood Pressure 146/83 (mmHg) O2 Sat by Pulse 94 Oximetry 05/24/16 05/24/16 05/24/16 03:36 07:20 07:31 Temperature 97.7 F 98.7 F Pulse Rate 117 121 Respiratory 18 18 22 Rate Blood Pressure 149/81 (mmHg) O2 Sat by Pulse 94 93 Oximetry 05/24/16 05/24/16 05/24/16 09:22 09:36 10:13 Temperature Pulse Rate 70 100 Respiratory 16 18 18 Rate Blood Pressure (mmHg) O2 Sat by Pulse 99 93 Oximetry 05/24/16 05/24/16 05/24/16 11:13 11:43 14:14 Temperature 98.1 F Pulse Rate 114 Respiratory 20 18 20 Rate Blood Pressure 147/72 (mmHg) O2 Sat by Pulse 94 Oximetry Oxygen Devices in Use Now: Nasal Cannula Respiratory: Symmetrical Chest Expansion and Respiratory Effort, Clear to Auscultation, - - Diminished in baseas Cardiovascular: NL Sounds; No Murmurs; No JVD, No Edema Abdominal: NL Sounds; No Tenderness; No Distention Extremities: No Edema Skin: No Rash or Ulcers Neurological: Alert and Oriented x 3, NL Muscle Strength and Tone Result Diagrams: 05/23/16 05:04 05/23/16 05:04 Assess/Plan/Problems-Billing Assessment: Mr. Taylor is a 75 yo male with PMH of recent admission for pancreatitis who returns with abdominal pain and concern for persistent pancreatitis, acute vs chronic, with pancreatic cyst. - Patient Problems (1) Pancreatitis Comment: Lipase essentially unchanged. Appreciate consultation from Dr. Garcia. High suspicion for pancreatic cyst only. Recommends that if pain persists over several weeks would refer to tertiary care facility for consideration of cyst drainage. Advance diet. Continue IVF for now, given tachycardia. Continue pain meds prn. (2) Pneumonia Comment: SOB and cough persists. Chest xray shows left basilar infiltrate. CRP 196.42. Continue levaquin. Add prednisone today. Wean O2, currently at 2L. Encourage C/DB, IS, and mobility. (3) Constipation Comment: Patient reports no stool since Thursday. I do note that patient had oral contrast on 05/14/16. Plan to check abd xray now to r/o obstruction. Start bowel meds. Suspect this may be contributing to patient's discomfort. (4) Hiccoughs Comment: Continue baclofen prn. Hiccupss leading to vomiting overnight on two seperate occasions, patient anxious and SOB with these episodes. Plan for routine baclofen before bed for prophylaxis. Suspect hiccups due to diaphragmatic irritation from pneumonia and pancreatitis. (5) HTN (hypertension) Comment: Hold amlodipine while NPO. Metoprolol available prn. (6) Hyperglycemia Comment: HgbA1c 6.0. (7) DVT prophylaxis Comment: HSQ (8) Full code status Status and Disposition: Inpatient with expected LOS > 2 days. Anticipate discharge to home when medically stable.
[2016-05-24] MEDS ORDERED: oxyCODONE TAB* 5 MG TAB PO PRN (20:09)
[2016-05-24] MEDS ORDERED: ALPRAZolam TAB* 0.25 MG PO PRN (20:11)
[2016-05-24] MEDS: Levofloxacin 750 MG IVPREMIX(* 750 MG/150 ML BAG IVPB SCH (20:38)
[2016-05-24] MEDS: Senna TAB PO SCH (20:47)
[2016-05-24] MEDS: Nicotine Patch Removal NOTE PATCH OFF SCH (20:48)
[2016-05-24] MEDS ORDERED: Baclofen TAB* 10 MG PO SCH (21:00)
[2016-05-25] MEDS: oxyCODONE/Acetamin 5/325 MG* TAB PO PRN ×2 (02:10→11:00)
[2016-05-25] MEDS: Heparin VIAL(*) 5000 UNITS/ML VIAL (FIVE THOUSAND) SUBCUT SCH ×3 (05:34→21:50)
[2016-05-25] MEDS: predniSONE TAB* 20 MG PO SCH (08:51)
[2016-05-25] MEDS: Docusate CAP* 100 MG PO SCH (08:51)
[2016-05-25] MEDS: Pantoprazole IV* 40 MG IV SCH (08:52)
[2016-05-25] MEDS: Mometasone/Formoter 100/5 MDI INH SCH ×2 (09:24→20:34)
--- NOTE | 2016-05-25 12:11 | PN ---
Subjective Date of Service: 05/25/16 Interval History: Mr. Taylor is complaining of mid epigastric abdominal pain. He states that he felt well overnight and slept well without hiccups or nausea/vomiting. He continues to have a cough and dyspnea on exertion. Objective Active Medications: Albuterol (Ventolin 2.5 Mg/3 Ml Neb.Sultana*) 2.5 mg INH [id number] AWAKE PRN Alprazolam (Xanax Tab*) 0.25 mg PO Q8H PRN Baclofen (Lioresal Tab*) 10 mg PO BEDTIME [facility] Baclofen (Lioresal Tab*) 10 mg PO Q6H PRN Docusate Sodium (Colace Cap*) 100 mg PO DAILY [facility] Heparin Sodium (Porcine) (Heparin Vial(*)) 5,000 units SUBCUT Q8HR [facility] Hydromorphone HCl (Dilaudid Iv*) 1 mg IV SLOW PU Q4H PRN Levofloxacin/Dextrose (Levaquin 750 Mg Ivpremix(*)) 750 mg in 150 mls @ 100 mls /hr IVPB Q24H [facility] Lactated Ringer's (Lactated Ringers 1000 Ml Bag*) 1,000 mls @ 125 mls/hr IV PER RATE [facility] Metoprolol Tartrate (Lopressor Iv*) 5 mg IV Q6H PRN Metoprolol Tartrate (Lopressor Tab*) 12.5 mg PO Q12HR [facility] Mometasone Furoate/Formoterol Fumar (Dulera 100/5 Mdi*) 2 puff INH BID [facility] Nicotine (Nicotine Inhaler*) 10 mg INH Q2H PRN Nicotine (Nicotine Patch 14 Mg/24 Hr*) 1 patch TRANSDERM Q24H [facility] Oxycodone HCl (Roxycodone Tab*) 10 mg PO Q4H PRN Oxycodone/Acetaminophen (Percocet 5/325 Tab*) 1 tab PO Q4H PRN Pantoprazole Sodium (Protonix Iv*) 40 mg IV DAILY [facility] Pharmacy Profile Note (Nicotine Patch Removal Note*) 1 note PATCH OFF 2100 [facility] Polyethylene Glycol/Electrolytes (Miralax*) 17 gm PO DAILY PRN Prednisone (Deltasone Tab*) 40 mg PO DAILY [facility] Senna (Senokot Tab*) 1 tab PO BEDTIME [facility] Vital Signs 05/24/16 05/24/16 05/24/16 14:14 15:14 15:35 Temperature 97.4 F Pulse Rate 121 Respiratory 20 20 19 Rate Blood Pressure 171/81 (mmHg) O2 Sat by Pulse 93 Oximetry 05/24/16 05/24/16 05/24/16 17:27 19:36 20:00 Temperature 97.2 F Pulse Rate 126 110 Respiratory 17 17 Rate Blood Pressure 172/94 155/89 (mmHg) O2 Sat by Pulse 92 93 Oximetry 05/24/16 05/24/16 05/24/16 20:25 21:25 23:11 Temperature Pulse Rate 92 Respiratory 17 17 24 Rate Blood Pressure (mmHg) O2 Sat by Pulse 92 Oximetry 05/24/16 05/25/16 05/25/16 23:17 02:10 04:10 Temperature 97.9 F Pulse Rate 116 Respiratory 16 16 16 Rate Blood Pressure 153/85 (mmHg) O2 Sat by Pulse 92 Oximetry 05/25/16 05/25/16 05/25/16 04:18 07:15 07:50 Temperature 97.8 F 98.7 F Pulse Rate 89 98 Respiratory 16 16 16 Rate Blood Pressure 154/69 146/68 (mmHg) O2 Sat by Pulse 91 91 Oximetry 05/25/16 05/25/16 05/25/16 07:54 11:00 11:38 Temperature Pulse Rate Respiratory 16 22 Rate Blood Pressure 150/80 (mmHg) O2 Sat by Pulse Oximetry Oxygen Devices in Use Now: Nasal Cannula Appearance: Male sitting up in chair in NAD Respiratory: Symmetrical Chest Expansion and Respiratory Effort, Clear to Auscultation Cardiovascular: NL Sounds; No Murmurs; No JVD, No Edema Abdominal: - - Pain with palpation in mid-epigastric region. BS +. Abdomen soft. Extremities: No Edema Skin: No Rash or Ulcers Neurological: Alert and Oriented x 3 Nutrition: Taking PO's Result Diagrams: 05/23/16 05:04 05/23/16 05:04 Assess/Plan/Problems-Billing Assessment: Mr. Taylor is a 75 yo male with PMH of recent admission for pancreatitis who returns with abdominal pain and concern for persistent pancreatitis, acute vs chronic, with pancreatic cyst. - Patient Problems (1) Pancreatitis Comment: Lipase essentially unchanged. Appreciate consultation from Dr. Garcia. High suspicion for pancreatic cyst only. Recommends that if pain persists over several weeks would refer to tertiary care facility for consideration of cyst drainage. Advance diet. Continue IVF for now, given tachycardia. Continue pain meds prn. (2) Pneumonia Comment: SOB and cough persists. Chest xray shows left basilar infiltrate. CRP 196.42. Continue levaquin. Continue prednisone. Wean O2, currently at 2L. Encourage C/DB, IS, and mobility. (3) Constipation Comment: Resolved. (4) Hiccoughs Comment: Continue baclofen prn. (5) HTN (hypertension) Comment: Hold amlodipine, start metoprolol given persistent tachycardia and mildly elevated BP. (6) Hyperglycemia Comment: HgbA1c 6.0. (7) DVT prophylaxis Comment: HSQ (8) Full code status Status and Disposition: Inpatient with expected LOS > 2 days. Anticipate discharge to home when medically stable.
[2016-05-25] MEDS ORDERED: Metoprolol Tartrate TAB* 25 MG PO SCH (13:00)
[2016-05-25] MEDS: Nicotine PATCH 14 MG/24 HR* PATCH TRANSDERM SCH (13:27)
[2016-05-25] MEDS: HYDROmorphone INJ* 1 MG/ML CARPUJECT SYRINGE IV SLOW PU PRN ×2 (13:28→20:44)
[2016-05-25] MEDS ORDERED: Iohexol 350* (CONTRAST) 500 ML MDV IV ONE (14:05)
--- NOTE | 2016-05-25 15:22 | RAD ---
INDICATION: Pancreatitis. Worsening abdominal pain and shortness of breath. Assess for pulmonary embolism and evaluate pancreatitis. COMPARISON: May 23, 2016 abdomen radiographs, May 21, 2016 abdominal MRI. May 14, 2016 CT. TECHNIQUE: Multidetector CT images were obtained from the lung apices to the iliac crests with 100 mL Omnipaque 300 IV contrast. Pulmonary angiogram protocol. Multiplanar reformation including with maximum intensity projection. CHEST REPORT: 0.9 cm spiculated nodule at the apical segment of the RIGHT upper lobe inseparable from pleural parenchymal scarring is unchanged compared with the recent CT exam. Coarse interstitial markings and mid to upper lung zone emphysema. Interstitial edema anterior to the major fissures is new compared with the recent CT. Small RIGHT and moderate LEFT dependent pleural effusions with proportional bilateral predominant lower lobe atelectasis. Inflammatory infiltrate particular at the basilar segments of the LEFT lower lobe is not excluded. Negative for pneumothorax. 0.9 cm short axis subcarinal lymph node. Negative for thoracic lymphadenopathy. Negative for cardiomegaly or pericardial effusion. Normal diameter thoracic aorta with mild atherosclerotic plaque. Negative for aortic dissection. No filling defects are identified from the main to the subsegmental pulmonary arteries to indicate presence of a pulmonary embolism. Negative for suspicious thoracic osseous lesions. CHEST IMPRESSION: 1. 0.9 cm spiculated nodule at the apical segment of the RIGHT upper lobe inseparable from pleural parenchymal scarring is unchanged compared with the recent CT exam. Previous FNA of this nodule performed March 07, 2016 with benign result. 2. No evidence for pulmonary embolism. 3. Interstitial pulmonary edema superimposed on chronic obstructive pulmonary disease and emphysema and small RIGHT and moderate LEFT pleural effusions. In setting of pancreatitis with diffuse third spacing this may not be cardiogenic in origin. ABDOMEN REPORT: Unremarkable liver. No CT abnormality of the gallbladder. Peripancreatic inflammation with moderate peripancreatic loculated fluid collection at the deep LEFT margin of the lesser sac with extension to the gastrosplenic ligament measuring up to approximate 3.7 cm AP by 6.7 cm transverse by 4.6 cm cephalocaudal. No significant change in approximate 1.0 x 3.0 cm region of pancreatic necrosis at the pancreatic body. Increased volume of grossly nonloculated fluid at the RIGHT aspect of the lesser sac. No CT abnormality of the visualized upper GI or small bowel or large bowel loops. Moderate diffuse ascites. Negative for free air. Negative for hernias within the [id number]. 1.1 cm diameter RIGHT adrenal nodule consistent with a benign lipid rich adenoma based on correlation with the previous noncontrast series. Unremarkable LEFT adrenal gland. Small foci of bilateral renal cortical scarring and few small probable cortical cysts noted. No suspicious focal renal lesions or hydronephrosis. Symmetric nephrograms and pyelograms. Unremarkable visualized proximal ureters. Negative for lymphadenopathy. Atherosclerotic plaque of normal diameter visualized abdominal aorta without inclusion of the bifurcation in the [id number]. Physiologic distention of the IVC. Unchanged finding of reactive endplate sclerosis and cystic change at the inferior endplate of T12. No suspicious focal osseous lesions evident. Diffuse subcutaneous edema in the dependent regions. ABDOMEN IMPRESSION: 1. Worsening of peripancreatic inflammatory change and increased volume of early loculated and nonloculated peripancreatic fluid collections compared with the May 21, 2016 MRI. Unchanged magnitude of pancreatic necrosis at the pancreatic body. 2. Moderate ascites and diffuse subcutaneous edema in the dependent regions; anasarca.
[2016-05-25] MEDS ORDERED: Baclofen TAB* 10 MG PO ONE (21:00)
[2016-05-25] MEDS ORDERED: Levofloxacin TAB* 750 MG PO SCH (21:00)
[2016-05-25] MEDS: Metoprolol Tartrate IV* 1 MG/ML 5 ML VIAL IV SCH (21:48)
[2016-05-25] MEDS: Baclofen TAB* 10 MG PO SCH (21:48)
[2016-05-25] MEDS: Nicotine Patch Removal NOTE PATCH OFF SCH (21:52)
[2016-05-25] MEDS: Levofloxacin 750 MG IVPREMIX(* 750 MG/150 ML BAG IVPB SCH (22:00)
[2016-05-26] MEDS: Metoprolol Tartrate IV* 1 MG/ML 5 ML VIAL IV SCH ×4 (03:28→20:37)
[2016-05-26] MEDS: Heparin VIAL(*) 5000 UNITS/ML VIAL (FIVE THOUSAND) SUBCUT SCH ×3 (05:14→22:02)
[2016-05-26] MEDS: HYDROmorphone INJ* 1 MG/ML CARPUJECT SYRINGE IV SLOW PU PRN ×2 (05:24→22:03)
[2016-05-26 06:20] LABS: Hematocrit 44 % (42-52); Hemoglobin 14.6 g/dl (14.0-18.0); Mean Corpuscular HGB Conc 34 g/dl (31-36); Mean Corpuscular Hemoglobin 35 pg (27-31); Mean Corpuscular Volume 103 fL (80-94); Mean Platelet Volume 9 um3 (7.4-10.4); Red Blood Count 4.23 10^6/ul (4.0-5.4); Red Cell Distribution Width 15 % (10.5-15); White Blood Count 13.1 10^3/ul (3.5-10.8)
[2016-05-26 06:22] LABS: Add Diff/Slide Review? Slide Review Added; Comments Flag Yes
[2016-05-26 06:41] LABS: BUN/Creatinine Ratio 24.3 (8-20); C Reactive Protein 126.19 mg/L (< 5.00); Calcium 7.7 mg/dL (8.6-10.3); EGFR African American 142.2 (>60); EGFR Non-African American 110.5 (>60); Potassium 3.9 mmol/L (3.5-5.0)
[2016-05-26] MEDS: Pantoprazole IV* 40 MG IV SCH (08:48)
[2016-05-26 11:12] LABS: Magnesium 1.8 mg/dL (1.9-2.7)
[2016-05-26] MEDS: Mometasone/Formoter 100/5 MDI INH SCH ×2 (11:17→20:53)
[2016-05-26] MEDS: Nicotine PATCH 14 MG/24 HR* PATCH TRANSDERM SCH (11:22)
[2016-05-26] MEDS ORDERED: Magnesium Sulfate 2 GM IV* 2 GM/50 ML BAG IVPB ONE (11:31)
[2016-05-26] MEDS: KCL 10 MEQ/50 ML IVPREMIX* 10 MEQ/50 ML BAG IV SCH ×2 (13:11→14:58)
[2016-05-26] MEDS: Baclofen TAB* 10 MG PO PRN (13:11)
--- NOTE | 2016-05-26 14:25 | CONSULT ---
Consult Consult: Consultation Note Critical Care Requesting Physician: Dr. Usha Mason Reason for consult: hypoxia Limitations in history/physical: none Date of consult: 05/26/2016 HPI: 75y M pmhx COPD, HTN; [place] 05[place] [facility] [place]. He returned to the ER 05/21 for increasing abdominal pain, no nausea/vom/fever/ chills. Denies sob/cp at that time. Upon arrival found to have recurrent pancreatitis, elevated lipase levels with mild wbc elevation, remained afebrile. Initial CXR demonstrated a possible left lower lobe infiltrate vs atelectasis with small effusion. He was started on IV Levaquin for pneumonia coverage. Over the past 24 hours he states some increased abdominal pain, denies n/v/diarrhea. He has been NPO. He feels sob only when he walks. He was hypoxic to 89% on 3L NC, now 91%, with rr 18-20. A CT of the chest was done demonstrating no PE, possible interstitial edema bilaterally, mod left effusion with possible atelectasis on the left and right. Of note, MRI imaging of the abd demonstrated a pancreatic pseudocyst of 2.9x3.8cm anterior to the neck of pancreas and extending to lesser sac, and small area of pancreatic necrosis on . The CT abd 05/25 shows increased size of the pseudocyst to 3.7x6.7x4.6cm and unchanged area of 1x3cm pancreatic necrosis. He has been afebrile throughout admission. Kept NPO with plans to start TPN. I was called for evaluation of the hypoxia and if he requires tertiary care support. ROS: All 14 systems are negative except pertinent positives mentioned above/ here including; no weight loss, no appetite change. No wounds/skin lesions. No blood in stool/diarrhea. Constipation+. No fever/chills. Chronic/Occasional cough+ but no sputum. No dysuria. Dyspnea on exertion+. No CP. No headache/ dizziness/weakness. Abdominal pain+. PMHx: ?COPD (not on inhalers), HTN, PVD s/p fem-pop bypass PSHx: left hip fracture s/p repair; fem-pop bypass Family History: unknown, adopted. Social History: Alcohol 2-3 beers/day for years, Smoking- 50 pack year/active, Drug use - denies Allergies: NKDA Home Medications: baclofen, tassalon perles, Percocet 5/325, Aspirin 81, Boniva 150mg monthly, Amlodipine 10mg daily. Vitals: Temp 98.6 F 05/26/16 11:20 Pulse 103 05/26/16 11:20 Resp 16 05/26/16 11:20 BP 152/61 05/26/16 11:20 Pulse Ox 94 05/26/16 14:09 Intake & Output 05/25/16 05/26/16 05/26/16 18:59 06:59 18:59 Intake Total 1541 390 61 Output Total 650 Balance 1541 -260 61 Weight 180 lb Intake: IV Fluids 924 30 ABX - LEVOFLOXACIN 30 LR 924 IVPB 67 160 61 ABX - LEVOFLOXACIN 160 LR 67 Magnesium 61 Oral 550 200 Output: Urine 650 Other: # Bowel Movements 0 # Voids 0 O2/Vent: NC 3L, o2 sat 91%, rr 18-20. Infusions: none Current Medications: Albuterol (Ventolin 2.5 Mg/3 Ml Neb.Sultana*) 2.5 mg INH [id number] AWAKE PRN PRN Reason: sob/wheezing Baclofen (Lioresal Tab*) 10 mg PO TID PRN PRN Reason: HICCUPS Last Admin: 05/26/16 13:11 Dose: 10 mg Baclofen (Lioresal Tab*) 10 mg PO BEDTIME [facility] Last Admin: 05/25/16 21:48 Dose: 10 mg Heparin Sodium (Porcine) (Heparin Vial(*)) 5,000 units SUBCUT Q8HR [facility] Last Admin: 05/26/16 05:14 Dose: 5,000 units Heparin Sodium (Porcine) (Heparin Flush Picc/Ml/Cvc(*)) 1 - 3 ml FLUSH 0600, 1800 [facility] PRN Reason: Protocol Hydromorphone HCl (Dilaudid Iv*) 1 mg IV SLOW PU Q4H PRN PRN Reason: PAIN Last Admin: 05/26/16 05:24 Dose: 1 mg Levofloxacin/Dextrose (Levaquin 750 Mg Ivpremix(*)) 750 mg in 150 mls @ 100 mls /hr IVPB Q24H [facility] Last Admin: 05/25/16 22:00 Dose: 100 mls/hr Potassium Chloride (Potassium Chloride 10 Meq/50 Ml Ivpremix*) 10 meq in 50 mls @ 50 mls/hr IV Q2H [facility] Stop: 05/26/16 14:59 Last Admin: 05/26/16 13:11 Dose: 50 mls/hr Metoprolol Tartrate (Lopressor Iv*) 5 mg IV Q6H [facility] Last Admin: 05/26/16 08:48 Dose: 5 mg Mometasone Furoate/Formoterol Fumar (Dulera 100/5 Mdi*) 2 puff INH BID [facility] Last Admin: 05/26/16 11:17 Dose: 2 puff Nicotine (Nicotine Inhaler*) 10 mg INH Q2H PRN PRN Reason: CRAVING Last Admin: 05/21/16 13:39 Dose: 10 mg Nicotine (Nicotine Patch 14 Mg/24 Hr*) 1 patch TRANSDERM Q24H [facility] Last Admin: 05/26/16 11:22 Dose: 1 patch Pantoprazole Sodium (Protonix Iv*) 40 mg IV DAILY [facility] Last Admin: 05/26/16 08:48 Dose: 40 mg Pharmacy Profile Note (Nicotine Patch Removal Note*) 1 note PATCH OFF 2100 [facility] Last Admin: 05/25/16 21:52 Dose: 1 note Physical Exam: General: awake, alert, no distress, no diaphoresis Head: normocephalic, atraumatic HEENT: no pallor, no icterus, moist mucous membranes Neck: no stridor, no jvd CVS: normal rate, normal rhythm, no murmur Resp: bilateral air entry, mild/intermittent wheeze on Right side, mild inspiratory crackles bilaterally, no rhonchi, no acc muscle use. Abdomen: soft, mildly distended, tender in epigastric/subxiphoid areas where palpable swelling is present, no guarding, bs+; areas of eccymosis from heparin injections. Ext: pulses+, warm, no edema Skin: intact, no breakdown Neuro: awake, alert, orientedx3, moving all extremities, no gross focal deficit Labs: 05/24/16 05/25/16 05/26/16 05:21 07:26 05:41 WBC RBC Hgb Hct MCV MCH MCHC RDW Plt Count MPV Neut % (Auto) Lymph % (Auto) [place] % (Auto) Eos % (Auto) Baso % (Auto) Absolute Neuts (auto) Absolute Lymphs (auto) Absolute Monos (auto) Absolute Eos (auto) Absolute Basos (auto) Absolute Nucleated RBC Nucleated RBC % Sodium 130 L Potassium 3.9 Chloride 99 L Carbon Dioxide 26 Anion Gap 5 BUN 17 Creatinine 0.70 Est GFR ( Amer) 142.2 Est GFR (Non-Af Amer) 110.5 BUN/Creatinine Ratio 24.3 H Glucose 90 Calcium 7.7 L Magnesium 1.8 L C-Reactive Protein 126.19 H Lipase 149 H 154 H 99 H 05/26/16 05:41 WBC 13.1 H RBC 4.23 Hgb 14.6 Hct 44 MCV 103 H MCH 35 H MCHC 34 RDW 15 Plt Count 242 MPV 9 Neut % (Auto) 91.0 H Lymph % (Auto) 3.7 L [place] % (Auto) 5.1 Eos % (Auto) 0.1 Baso % (Auto) 0.1 Absolute Neuts (auto) 11.9 H Absolute Lymphs (auto) 0.5 L Absolute Monos (auto) 0.7 Absolute Eos (auto) 0 Absolute Basos (auto) 0 Absolute Nucleated RBC 0 Nucleated RBC % 0 Sodium Potassium Chloride Carbon Dioxide Anion Gap BUN Creatinine Est GFR ( Amer) Est GFR (Non-Af Amer) BUN/Creatinine Ratio Glucose Calcium Magnesium C-Reactive Protein Lipase Imaging: MRI abd 05/21/2016 - irregular shaped fluid filled collection Ant to neck of pancreas measureing 2.9x3.8cm, larger than previous exam. Extends along lesser sac/less curvature of stomach; small ascites+; pancreatic pseudocyst. CT chest/abd/pelvis 05/25/2016 - 0.9cm spiculated nodule on right upper lobe/ apex unchanged, no evidence of PE, Interstitial Pulm Edema superimposed on chronic obst pulm disease and emphysema, small right and moderate left pleural effusions; worsening of peripancreatic inflammatory change and increased volume of early loculated and nonloculated peripancreatic fluid collection compared to 05/21/16 MRI, unchanged pancreatic necrosis, moderate ascites and diffuse subcuta edema in dependent regions, anasarca. Assessment: 75y M with COPD, HTN, tobacco abuse, chronic alcohol use; admitted for recurrent pancreatitis, now develops hypoxia. -Interstitial pulm congestion - possible pulm congestion 2/2 to positive fluid balance vs atelectasis 2/2 to pain vs onset of ARDS 2/2 to pancreatitis. -Hypoxia -Acute pancreatitis -Pancreatic pseudocyst, enalarging -left small/mod pleural effusion; minimal left lower lobe atelectais/infiltrate Plan: Neuro- stable CVS-stable BP, tachycardic at times, started on lopressor PO. trial of diuretics for possible pulm congestion, positive fluid balance. Resp- hypoxia, now on 5L NC, sats mid 90s. Multifactorial causes. repeat ECHO. Positive balance since admission, now seems be 3rd spacing also to pleural space /abd. Will give lasix 20mg iv and assess change. Small areas of atelectasis and maybe even small infiltrate on CT chest when I reviewed it. Agree to cover with levaquin, or even rocephin IV. There is effusion but not large enough to be causing this desaturation, discussed with patient that I dont feel it needs to be drained at this point and that diuretics may work. Effusion can also be due to transudative process from abdominal pancreatitis/ascites. Atelectasis may be from poor insp effor 2/2 to pain also. Recommend bronchodilators. No ind for steroids. If no change with diuretics or worsening hypoxia, may also be onset of ARDS given his active pancreatitis and increasing abd pain. Close watch, if worsening hypoxia then ICU upgrade for bipap. ID- afebrile. wbc 12-14. CRP is high but he has inflammatory process ongoing. can check procal if available. Cover pneumonia with levaquin IV. Discussed with team that if patient spikes temperature, wbc starts to rise then concern for pancreatic pseudocyst being infected is possibility, then would change abx to merropenem IV, and consider FNA of pseudocyst/necrosis for sampling. GI- pancreatitis, declining lipase levels. Pseudocyst enlarging. Remains afebrile, wbc elevated but stable. close monitoring. starting TPN, remains NPO. pain control. no nausea/vom. no diarrhea. Surgical consult for input whether FNA of necrosis/pseudocyst indicated yet or hold off if showing signs of sepsis. Renal- stable Cr, K 3.9. replete as needed Heme-stable hg, plt count stable. no bleeding. mild eccymosis from heparin sq. Endo-hyperglycemia. Musculsk- none Wounds- none Nutrition- NPO except liquids; starting TPN DVT prophylaxis: heparin sq GI prophylaxis: PPI Central Line: no Arterial Line: no Black Cathetor: no Disposition: medical floor Code Status: full code Total Critical Care time is 50 minutes, excluding procedures/teaching Tariq Chowdhury MD Equity Manager (Electronically Signed)
--- NOTE | 2016-05-26 14:41 | PN ---
Subjective Date of Service: 05/26/16 Interval History: Mr. Taylor states that he is feeling a bit better today. He continues to have abdominal pain but states that it seems better today. He continues to have dyspnea on exertion but no significant cough. He denies chest pain. Objective Active Medications: Albuterol (Ventolin 2.5 Mg/3 Ml Neb.Sultana*) 2.5 mg INH [id number] AWAKE PRN Baclofen (Lioresal Tab*) 10 mg PO TID PRN Baclofen (Lioresal Tab*) 10 mg PO BEDTIME [facility] Heparin Sodium (Porcine) (Heparin Vial(*)) 5,000 units SUBCUT Q8HR [facility] Heparin Sodium (Porcine) (Heparin Flush Picc/Ml/Cvc(*)) 1 - 3 ml FLUSH 0600, 1800 [facility] Hydromorphone HCl (Dilaudid Iv*) 1 mg IV SLOW PU Q4H PRN Levofloxacin/Dextrose (Levaquin 750 Mg Ivpremix(*)) 750 mg in 150 mls @ 100 mls /hr IVPB Q24H [facility] Potassium Chloride (Potassium Chloride 10 Meq/50 Ml Ivpremix*) 10 meq in 50 mls @ 50 mls/hr IV Q2H [facility] Metoprolol Tartrate (Lopressor Iv*) 5 mg IV Q6H [facility] Mometasone Furoate/Formoterol Fumar (Dulera 100/5 Mdi*) 2 puff INH BID [facility] Nicotine (Nicotine Inhaler*) 10 mg INH Q2H PRN Nicotine (Nicotine Patch 14 Mg/24 Hr*) 1 patch TRANSDERM Q24H [facility] Pantoprazole Sodium (Protonix Iv*) 40 mg IV DAILY [facility] Pharmacy Profile Note (Nicotine Patch Removal Note*) 1 note PATCH OFF 2100 [facility] Vital Signs 05/25/16 05/25/16 05/25/16 15:31 19:19 19:54 Temperature 97.0 F 97.4 F Pulse Rate 85 108 Respiratory 20 17 17 Rate Blood Pressure 141/75 148/84 (mmHg) O2 Sat by Pulse 93 93 Oximetry 05/25/16 05/25/16 05/25/16 20:38 20:44 21:44 Temperature Pulse Rate 105 Respiratory 18 18 18 Rate Blood Pressure (mmHg) O2 Sat by Pulse 92 Oximetry 05/26/16 05/26/16 05/26/16 00:37 03:20 04:33 Temperature 98.0 F 98.6 F 98.8 F Pulse Rate 68 114 101 Respiratory 20 22 Rate Blood Pressure 158/79 159/92 144/83 (mmHg) O2 Sat by Pulse 91 92 90 Oximetry 05/26/16 05/26/16 05/26/16 05:24 06:24 07:10 Temperature Pulse Rate Respiratory 20 20 18 Rate Blood Pressure (mmHg) O2 Sat by Pulse Oximetry 05/26/16 05/26/16 05/26/16 07:38 11:20 14:09 Temperature 98.5 F 98.6 F Pulse Rate 105 103 Respiratory 18 16 Rate Blood Pressure 150/66 152/61 (mmHg) O2 Sat by Pulse 89 91 94 Oximetry Oxygen Devices in Use Now: Nasal Cannula Appearance: Male sitting up in bed in NAD Respiratory: Symmetrical Chest Expansion and Respiratory Effort, - - Diminished throughout Cardiovascular: NL Sounds; No Murmurs; No JVD, No Edema Abdominal: - - Tender in mid abdomen, BS positive, soft Extremities: No Edema Skin: No Rash or Ulcers Neurological: Alert and Oriented x 3, NL Muscle Strength and Tone Nutrition: - - NPO Result Diagrams: 05/26/16 05:41 05/26/16 05:41 Assess/Plan/Problems-Billing Assessment: Mr. Taylor is a 75 yo male with PMH of recent admission for pancreatitis who returns with abdominal pain and concern for persistent pancreatitis, acute vs chronic, with pancreatic cyst. - Patient Problems (1) Pancreatitis Comment: Lipase essentially unchanged. Appreciate consultation from GI. Also consulted Dr. Chowdhury from Front Office Representative service. High suspicion for pancreatic pseudocyst, no evidence of infection at this point as patient is afebrile. Monitoring closely for development of fever or worsening respiratory status, patient may ultimely need transfer to tertiary care facility for drainage. Continue pain meds prn. PICC placed, TPN ordered. (2) SOB (shortness of breath) Comment: Dypsnea on exertion and hypoxia persists. CT chest more consistent with pleural effusion and atelectasis with third spacing due to pancreatitis. Plan to complete course of levaquin. Also, appreciate recommendation from Dr. Chowdhury, plan for lasix x 1 now. No evidence of ARDS at this time. (3) Constipation Comment: Resolved. (4) Hiccoughs Comment: Continue baclofen prn. (5) HTN (hypertension) Comment: Hold amlodipine, continue metoprolol given persistent tachycardia and mildly elevated BP. (6) Hyperglycemia Comment: HgbA1c 6.0. (7) DVT prophylaxis Comment: HSQ (8) Full code status Status and Disposition: Inpatient with expected LOS > 2 days. Anticipate discharge to home when medically stable.
[2016-05-26] MEDS ORDERED: Furosemide IV* 10 MG/ML 2 ML VIAL (20 MG) IV SLOW PU ONE (14:54)
[2016-05-26] MEDS: Albuterol 2.5 MG/3 ML NEB.SOL* (0.083%) INH SCH ×2 (16:48→20:42)
[2016-05-26 16:52] LABS: Phosphorus 3.1 mg/dL (2.5-5.0)
[2016-05-26] MEDS ORDERED: TPN* 24 HR with Dextrose 50% Water* 500 ML, Amino Acid Infusion 10%* 850 ML, Lipid Emul... TPN SCH ×12 (17:00)
[2016-05-26] MEDS: Baclofen TAB* 10 MG PO SCH (20:08)
[2016-05-26] MEDS: Levofloxacin 750 MG IVPREMIX(* 750 MG/150 ML BAG IVPB SCH (20:22)
[2016-05-26] MEDS ORDERED: Albuterol 2.5 MG/3 ML NEB.SOL* (0.083%) INH PRN (20:36)
[2016-05-26] MEDS: Nicotine Patch Removal NOTE PATCH OFF SCH (22:03)
[2016-05-27] MEDS: Metoprolol Tartrate IV* 1 MG/ML 5 ML VIAL IV SCH ×4 (03:52→22:06)
[2016-05-27] MEDS: Heparin VIAL(*) 5000 UNITS/ML VIAL (FIVE THOUSAND) SUBCUT SCH ×3 (05:53→22:06)
[2016-05-27 06:36] LABS: Albumin 2.1 g/dL (3.2-5.2); BUN/Creatinine Ratio 24.7 (8-20); Calcium 7.7 mg/dL (8.6-10.3); EGFR African American 135.4 (>60); EGFR Non-African American 105.3 (>60); Globulin 2.6 g/dL (2-4); Phosphorus 2.4 mg/dL (2.5-5.0); Potassium 3.8 mmol/L (3.5-5.0); Total Bilirubin 0.4 mg/dL (0.2-1.0); Total Protein 4.7 g/dL (6.4-8.9)
--- NOTE | 2016-05-27 08:02 | RAD ---
Indication: Evaluate infiltrates. Comparison: May 25, 2016 CT. Technique: Upright AP 0628 hours Report: RIGHT upper extremity PICC tip at level of superior vena cava directed central. Patchy inflammatory infiltrate superimposed on stigmata of chronic obstructive pulmonary disease and emphysema with the most confluent consolidation within the peripheral RIGHT midlung zone and peripheral LEFT upper lung zone and LEFT lung base are without significant interval change. Unchanged small LEFT dependent pleural effusion. The RIGHT lateral costophrenic angle is sharp however previous CT documents a small RIGHT effusion which may persist. The heart, pulmonary vasculature, and mediastinal contours are unremarkable. IMPRESSION: No significant change in bilateral inflammatory infiltrates and small LEFT pleural effusion.
[2016-05-27] MEDS: Baclofen TAB* 10 MG PO PRN ×2 (09:17→15:26)
[2016-05-27] MEDS: Pantoprazole IV* 40 MG IV SCH (09:17)
[2016-05-27] MEDS: Mometasone/Formoter 100/5 MDI INH SCH ×2 (09:27→21:23)
--- NOTE | 2016-05-27 09:40 | ECHO ---
Patient: ANNELIESE FITZGERALD [facility] Rec#: [id number] : 1940 Date: 05/27/2016 Age: 75y Height: 187.96 cm / 74.0 in Weight: 81.65 kg / 180.0 lbs Sex: M BSA: 2.08 Room#: 451 Admit Date#: 05/22/2016 Type: Inpatient Referring: Tariq Chowdhury Reading: Tylor Ross MD Project Controls Specialist: Kristi Lopez Project Controls Specialist: Sonam Calloway RN RDCS CC: Haresh Bueno MD Transthoracic Echocardiogram Indication: Pulmonary congestion, hypoxia BP: 184/83 HR: 104 Rhythm: NSR with PVCs Findings History: HTN, PVD, s/p femoral popiteal bypass, smoker, ETOH use, recent pancreatitis. Technical Comments: The study is technically limited due to the patient's smoking history. Completed at 0910. Left Ventricle: The left ventricular chamber size is decreased. Mild to moderate concentric left ventricular hypertrophy is observed. There is increased basal septal hypertrophy noted without evidence of an increased gradient across the left ventricular outflow tract. Left ventricular systolic function is at the lower limits of normal. The estimated ejection fraction is 50-55%. There is an E to A reversal in the mitral valve flow pattern suggestive of diastolic dysfunction. Left Atrium: The left atrial chamber size is normal. Right Ventricle: The right ventricular cavity size is normal. The right ventricular global systolic function is low normal. Right Atrium: The right atrial cavity size is normal. Aortic Valve: The aortic valve is trileaflet. There is evidence of aortic sclerosis without stenosis. There is no evidence of aortic regurgitation. There is no evidence of aortic stenosis. Mitral Valve: The mitral valve leaflets are moderately thickened. There is mild mitral regurgitation. There is no evidence of mitral stenosis. Tricuspid Valve: The tricuspid valve leaflets are mildly thickened. There is mild to moderate tricuspid regurgitation. There is evidence of mild pulmonary hypertension. There is no tricuspid stenosis. Pulmonic Valve: The pulmonic valve appears normal. There is mild pulmonic regurgitation. There is no pulmonic stenosis. Pericardium: There is no significant pericardial effusion. A left pleural effusion is present. Aorta: There is no dilatation of the ascending aorta. The aortic arch is not well visualized. There is no dilation of the aortic root. Pulmonary Artery: The main pulmonary artery appears normal. Venous: The inferior vena cava appears normal in size. There is a greater than 50% respiratory change in the inferior vena cava dimension. Summary: There are no significant changes when compared to the previous study done on 08/01/13 Conclusions Mild to moderate concentric left ventricular hypertrophy is observed. Left ventricular systolic function is at the lower limits of normal. The estimated ejection fraction is 50-55%. There is increased basal septal hypertrophy noted without evidence of an increased gradient across the left ventricular outflow tract. There is evidence of aortic sclerosis without stenosis. There is no evidence of aortic regurgitation. There is mild mitral regurgitation. There is mild to moderate tricuspid regurgitation. There is evidence of mild pulmonary hypertension. There is no significant pericardial effusion. Measurements Name Value Normal Range RVIDd (AP) 2D 2.2 cm (0.9 - 2.6) RVDdMajor (2D) 3.9 cm (2.2 - 4.4) RAd ISD 4CH 4.6 cm (3.4 - 4.9) RA (A4C)W 4.1 cm (2.9 - 4.6) IVSd (2D) 1.4 cm (0.6 - 1) LVPWd (2D) 1.2 cm (0.6 - 1) LVIDd (2D) 3.3 cm (3.6 - 5.4) LVIDs (2D) 2.6 cm - LV FS (2D) 21 % (25 - 45) Aortic Annulus 1.7 cm (1.4 - 2.6) Ao root diameter (2D) 3 cm (2.1 - 3.5) Ascending Ao 3.3 cm (2.1 - 3.4) LA dimension (AP) 2D 3.2 cm (2.3 - 3.8) LAd ISD 4CH 4.9 cm (2.9 - 5.3) LA ISD 4CH W 4.1 cm (2.5 - 4.5) Name Value Normal Range LA ESV SP 4CH (A/L) 41 ml - LA ESV SP 2CH (A/L) 31 ml - LA ESV BP (A/L) 38 ml - LA ESV BP (A/L) index 18.25 ml/m2 - LA ESV SP 4CH (MOD) 38 ml - LA ESV SP 2CH (MOD) 29 ml - Name Value Normal Range MV E-wave Vmax 0.8 m/sec - MV deceleration time 228 msec - MV A-wave Vmax 1 m/sec - MV E:A ratio 0.8 ratio - LV septal e' Vmax 0.1 m/sec - LV lateral e' Vmax 0.09 m/sec - LV E:e' septal ratio 8 ratio - LV E:e' lateral ratio 8.9 ratio - Name Value Normal Range AV Vmax 1.7 m/sec - AV VTI 27 cm - AV peak gradient 11.31 mmHg - AV mean gradient 5.45 mmHg - LVOT Vmax 1.2 m/sec - LVOT VTI 15 cm - LVOT peak gradient 5.29 mmHg - LVOT mean gradient 2.24 mmHg - Name Value Normal Range TR Vmax 3.1 m/sec - TR peak gradient 38 mmHg - RAP 3 mmHg - RVSP 41 mmHg - IVC diameter 1.2 cm - Name Value Normal Range PV Vmax 0.9 m/sec - PV peak gradient 3.25 mmHg -
--- NOTE | 2016-05-27 10:33 | PN ---
Progress Note - Progress Note Note: Progress Note Critical Care 24 hour events/significant events: -patient on NC 3 L now, sat 93-96%, intermittent tachypneia but otherwise seems comfortable -cough+, no sputum -started on TPN last night -responded to lasix, thinks he felt bettter with it. -noted 2 episodes of NSVT which broke spontaneously; no cp otherwise. Tele: sinus arrhythmia, NSVT x2 episodes; intermittent ectopy at times. Vitals: Vital Signs Temp 97.3 F 05/27/16 08:50 Pulse 78 05/27/16 09:27 Resp 16 05/27/16 09:27 BP 159/75 05/27/16 08:50 Pulse Ox 96 05/27/16 09:27 Intake & Output 05/26/16 05/27/16 05/27/16 18:59 06:59 18:59 Intake Total 111 997 Output Total 600 700 Balance -489 297 Intake: IV Fluids 50 Potassium 50 IVPB 61 Magnesium 61 TPN/PPN 997 Oral 0 0 Output: Urine 600 700 O2/Vent: NC 3L, sat 93-96%, rr 20 Infusions: TPN infusion Medications: Albuterol (Ventolin 2.5 Mg/3 Ml Neb.Sultana*) 2.5 mg INH Q4H PRN PRN Reason: SOB/WHEEZING Baclofen (Lioresal Tab*) 10 mg PO TID PRN PRN Reason: HICCUPS Last Admin: 05/27/16 09:17 Dose: 10 mg Baclofen (Lioresal Tab*) 10 mg PO BEDTIME [facility] Last Admin: 05/26/16 20:08 Dose: 10 mg Heparin Sodium (Porcine) (Heparin Vial(*)) 5,000 units SUBCUT Q8HR [facility] Last Admin: 05/27/16 05:53 Dose: 5,000 units Heparin Sodium (Porcine) (Heparin Flush Picc/Ml/Cvc(*)) 1 - 3 ml FLUSH 0600, 1800 [facility] PRN Reason: Protocol Last Admin: 05/27/16 05:53 Dose: 1 ml Hydromorphone HCl (Dilaudid Iv*) 1 mg IV SLOW PU Q4H PRN PRN Reason: PAIN Last Admin: 05/26/16 22:03 Dose: 1 mg Levofloxacin/Dextrose (Levaquin 750 Mg Ivpremix(*)) 750 mg in 150 mls @ 100 mls /hr IVPB Q24H [facility] Last Admin: 05/26/16 20:22 Dose: 100 mls/hr Dextrose 500 ml/ Amino Acids 850 ml/ Fat Emulsion Intravenous 250 ml/ Sodium Chloride 100 meq/ Potassium Chloride 50 meq/ Potassium Phosphate 15 mmole/ Calcium Gluconate 15 meq/ Magnesium Sulfate 10 meq/ Multivitamins 10 ml/ Trace Metals 3 ml/Sterile Water 150 ml/Nutrition (Parenteral) 1,852.721 mls @ 77.083 mls/hr TPN 1700 [facility] Stop: 05/27/16 16:59 Last Admin: 05/26/16 17:02 Dose: 77.083 mls/hr Metoprolol Tartrate (Lopressor Iv*) 5 mg IV Q6H [facility] Last Admin: 05/27/16 09:17 Dose: 5 mg Mometasone Furoate/Formoterol Fumar (Dulera 100/5 Mdi*) 2 puff INH BID [facility] Last Admin: 05/27/16 09:27 Dose: 2 puff Nicotine (Nicotine Inhaler*) 10 mg INH Q2H PRN PRN Reason: CRAVING Last Admin: 05/21/16 13:39 Dose: 10 mg Nicotine (Nicotine Patch 14 Mg/24 Hr*) 1 patch TRANSDERM Q24H [facility] Last Admin: 05/26/16 11:22 Dose: 1 patch Pantoprazole Sodium (Protonix Iv*) 40 mg IV DAILY [facility] Last Admin: 05/27/16 09:17 Dose: 40 mg Pharmacy Profile Note (Nicotine Patch Removal Note*) 1 note PATCH OFF 2100 [facility] Last Admin: 05/26/16 22:03 Dose: 1 note Physical Exam: General: awake, alert, no distress, no diaphoresis Head: normocephalic, atraumatic HEENT: no pallor, no icterus, moist mucous membranes Neck: no stridor, no jvd CVS: normal rate, normal rhythm, no murmur Resp: bilateral air entry, bilateral rhales+, no wheeze/rhonchi, no acc muscle use. Abdomen: soft, mildly distended, tender in epigastric/subxiphoid areas where palpable swelling is present, no guarding, bs+; areas of eccymosis from heparin injections. Ext: pulses+, warm, no edema Skin: intact, no breakdown Neuro: awake, alert, orientedx3, moving all extremities, no gross focal deficit Labs: Laboratory Results - last 24 hr 05/26/16 05/26/16 05/27/16 05:41 21:31 01:08 Sodium Potassium Chloride Carbon Dioxide Anion Gap BUN Creatinine Est GFR ( Amer) Est GFR (Non-Af Amer) BUN/Creatinine Ratio Glucose POC Glucose (mg/dL) 179 H 188 H Calcium Phosphorus 3.1 Magnesium 1.8 L Total Bilirubin AST ALT Alkaline Phosphatase Total Protein Albumin Globulin Albumin/Globulin Ratio Triglycerides 74 05/27/16 05/27/16 05:55 09:21 Sodium 132 L Potassium 3.8 Chloride 99 L Carbon Dioxide 30 Anion Gap 3 BUN 18 Creatinine 0.73 Est GFR ( Amer) 135.4 Est GFR (Non-Af Amer) 105.3 BUN/Creatinine Ratio 24.7 H Glucose 140 H POC Glucose (mg/dL) 202 H Calcium 7.7 L Phosphorus 2.4 L Magnesium 2.0 Total Bilirubin 0.40 AST 27 ALT 21 Alkaline Phosphatase 64 Total Protein 4.7 L Albumin 2.1 L Globulin 2.6 Albumin/Globulin Ratio 0.8 L Triglycerides 85 Imaging: MRI abd 05/21/2016 - irregular shaped fluid filled collection Ant to neck of pancreas measureing 2.9x3.8cm, larger than previous exam. Extends along lesser sac/less curvature of stomach; small ascites+; pancreatic pseudocyst. CT chest/abd/pelvis 05/25/2016 - 0.9cm spiculated nodule on right upper lobe/ apex unchanged, no evidence of PE, Interstitial Pulm Edema superimposed on chronic obst pulm disease and emphysema, small right and moderate left pleural effusions; worsening of peripancreatic inflammatory change and increased volume of early loculated and nonloculated peripancreatic fluid collection compared to 05/21/16 MRI, unchanged pancreatic necrosis, moderate ascites and diffuse subcuta edema in dependent regions, anasarca. cxr 05/27 - bilateral pulm congestion vs infiltrates, more than previous 05/22 cxr Assessment: 75y M with COPD, HTN, tobacco abuse, chronic alcohol use; admitted for recurrent pancreatitis, now develops hypoxia. -Interstitial pulm congestion - possible pulm congestion 2/2 to positive fluid balance vs atelectasis 2/2 to pain vs onset of ARDS 2/2 to pancreatitis. -Hypoxia -Acute pancreatitis -Pancreatic pseudocyst, enalarging -left small/mod pleural effusion; minimal left lower lobe atelectais/infiltrate Plan: Neuro- stable CVS-stable BP, tachycardic at times, lopressor 5mg IV q6h prn. made urine with diuretics but doesnt seem to have changed clinical exam much. Still bilateral congestion; now on TPN infusion also. additional lasix IV today. ECHO reviewed, some diastolic dysfunction, no overt valve abnormality or MR/. Betablockers would benefit. Resp- hypoxia, now on 3L NC, sats mid 90s. Multifactorial causes. Congestion vs pneumonia vs ARDS developing? remains afebrile, hypertensive/tachycardic. Lasix IV today. Cont Levaquin IV. supplemental oxygen. If worsenign oxygenation, upgrade to ICU for NIV support. Agree to cover with levaquin. There is effusion but not large enough to be causing this desaturation, discussed with patient that I dont feel it needs to be drained at this point and that diuretics may work. Bronchodilators q4h prn. No ind for steroids. Close watch, if worsening hypoxia then ICU upgrade for bipap. ID- afebrile. Cover pneumonia with levaquin IV. If fever spike or further wbc elevation, would consider changing to cefepime or meropenem for abd coverage. Concern for infected pseudocyst if more change. Surgery evaluated patient, no plan for intervention. GI- pancreatitis, declining lipase levels. Pseudocyst enlarging. Remains afebrile, wbc elevated but stable. close monitoring. TPN started, remains NPO. pain control. no nausea/vom. no diarrhea. Surgical consult was obtained, no intervention for FNA at this time. Renal- stable Cr. replete as needed Heme-stable hg, plt count stable. no bleeding. mild eccymosis from heparin sq. Endo-hyperglycemia. Musculsk- none Wounds- none Nutrition- NPO except liquids; starting TPN DVT prophylaxis: heparin sq GI prophylaxis: PPI Central Line: no Arterial Line: no Black Cathetor: no Disposition: medical floor; upgrade to ICU if any further worsening hypoxia for NIV support. Code Status: full code Tariq Chowdhury MD [employer] (Electronically Signed)
--- NOTE | 2016-05-27 11:00 | PN ---
Subjective Date of Service: 05/27/16 Interval History: Patient seen this morning. Says he feels pain and breathing may be a bit better today. Has not been out of bed. No fever or chills. Says he feels that he urinated more yesterday. Family History: Unchanged from Admission Social History: Unchanged from Admission Past Medical History: Unchanged from Admission Objective Active Medications: Albuterol (Ventolin 2.5 Mg/3 Ml Neb.Sultana*) 2.5 mg INH Q4H PRN Baclofen (Lioresal Tab*) 10 mg PO TID PRN Baclofen (Lioresal Tab*) 10 mg PO BEDTIME [facility] Heparin Sodium (Porcine) (Heparin Vial(*)) 5,000 units SUBCUT Q8HR [facility] Heparin Sodium (Porcine) (Heparin Flush Picc/Ml/Cvc(*)) 1 - 3 ml FLUSH 0600, 1800 [facility] Hydromorphone HCl (Dilaudid Iv*) 1 mg IV SLOW PU Q4H PRN Levofloxacin/Dextrose (Levaquin 750 Mg Ivpremix(*)) 750 mg in 150 mls @ 100 mls /hr IVPB Q24H [facility] Dextrose 500 ml/ Amino Acids 850 ml/ Fat Emulsion Intravenous 250 ml/ Sodium Chloride 100 meq/ Potassium Chloride 50 meq/ Potassium Phosphate 15 mmole/ Calcium Gluconate 15 meq/ Magnesium Sulfate 10 meq/ Multivitamins 10 ml/ Trace Metals 3 ml/Sterile Water 150 ml/Nutrition (Parenteral) 1,852.721 mls @ 77.083 mls/hr TPN 1700 [facility] Metoprolol Tartrate (Lopressor Iv*) 5 mg IV Q6H [facility] Mometasone Furoate/Formoterol Fumar (Dulera 100/5 Mdi*) 2 puff INH BID [facility] Nicotine (Nicotine Inhaler*) 10 mg INH Q2H PRN Nicotine (Nicotine Patch 14 Mg/24 Hr*) 1 patch TRANSDERM Q24H [facility] Pantoprazole Sodium (Protonix Iv*) 40 mg IV DAILY [facility] Pharmacy Profile Note (Nicotine Patch Removal Note*) 1 note PATCH OFF 2100 [facility] Vital Signs 05/26/16 05/26/16 05/26/16 11:20 14:09 15:49 Temperature 98.6 F 97.6 F Pulse Rate 103 115 Respiratory 16 Rate Blood Pressure 152/61 154/81 (mmHg) O2 Sat by Pulse 91 94 93 Oximetry 05/26/16 05/26/16 05/27/16 22:03 23:03 00:33 Temperature 97.4 F Pulse Rate 118 Respiratory 20 20 18 Rate Blood Pressure 143/87 (mmHg) O2 Sat by Pulse 93 Oximetry 05/27/16 05/27/16 05/27/16 03:30 08:00 08:50 Temperature 98.1 F 97.3 F Pulse Rate 118 108 Respiratory 18 18 Rate Blood Pressure 184/83 159/75 (mmHg) O2 Sat by Pulse 90 92 Oximetry Oxygen Devices in Use Now: Nasal Cannula - 3L Appearance: Elderly, M, laying in bed in NAD Eyes: No Scleral Icterus Ears/Nose/Mouth/Throat: - - Dry MM Neck: NL Appearance and Movements; NL JVP Respiratory: Symmetrical Chest Expansion and Respiratory Effort, - - Diminished BS throughout, some rales in bases Cardiovascular: - - Mild tachycardia Abdominal: - - Soft, TTP in epigastric and periumbilical area, BS positive, no rebound/guarding Lymphatic: No Cervical Adenopathy Extremities: No Edema Skin: No Rash or Ulcers Neurological: Alert and Oriented x 3 Result Diagrams: 05/26/16 05:41 05/27/16 05:55 Assess/Plan/Problems-Billing Assessment: Mr. Taylor is a 75 yo male with PMH of recent admission for pancreatitis who returns with abdominal pain and concern for persistent pancreatitis, acute vs chronic, with pancreatic cyst and necrosis. - Patient Problems (1) Pancreatitis Current Visit: Yes Comment: Appreciate GI and ICU assistance. Continue NPO and TPN via PICC. Repeat imaging (CT abd/pelvis) showed increasing size of pseudocyst with stable area of necrosis. Kathy spoke with Surgery on 05/26 who did not feel that they would aspirate the pseudocyst. No fevers, will hold on additional ABx or aspiration of pseudocyst at this point. Lipase and CRP trending down on last check. (2) SOB (shortness of breath) Current Visit: Yes Comment: Appreciate ICU consult. Likely multifactorial due to fluid overload/third spacing, pneumonia, ?ARDS. Dypsnea on exertion and hypoxia persists. CT chest more consistent with pleural effusion and atelectasis with third spacing due to pancreatitis. Will complete course of Levaquin (Day 3) for possible underlying PNA. Redose with IV Lasix again today. Wean O2 as able. (3) NSVT (nonsustained ventricular tachycardia) Current Visit: Yes Comment: Continue IV metoprolol. Replete electrolyte abnormalities. (4) HTN (hypertension) Current Visit: No Comment: BPs a bit high. Continue IV metoprolol while NPO. Holding amlodipine. (5) Hyperglycemia Current Visit: Yes Comment: Will add insulin to TPN. HgbA1c 6.0. (6) DVT prophylaxis Current Visit: No Comment: HSQ Status and Disposition: Inpatient with expected LOS > 2 days. Anticipate discharge to home when medically stable.
[2016-05-27] MEDS ORDERED: Furosemide IV* 10 MG/ML 10 ML VIAL (100 MG) IV ONE (11:04)
[2016-05-27] MEDS: Nicotine PATCH 14 MG/24 HR* PATCH TRANSDERM SCH (11:35)
--- NOTE | 2016-05-27 11:53 | RAD ---
Indication: Pancreatitis. Assess pseudocyst. Comparison: May 25, 2016 CT. Technique: Pancreatic region ultrasound Report: There is a bilobed grossly simple fluid collection at the level of the lesser sac with smaller moiety anterior to the pancreatic head measuring up to 5.3 x 2.5 x 6.1 cm and larger moiety seen LEFT lateral extending into the gastrosplenic ligament region measuring up to 13.2 x 5.6 x 10.6 cm. The dominant portion of the collection previously measured up to 3.7 x 6.7 x 4.6 cm. The larger LEFT lateral moiety demonstrates early wall development favoring early pseudocyst formation. IMPRESSION: Interval enlargement of fluid collection at the lesser sac with suggestion of early pseudocyst formation at the more LEFT lateral moiety of the bilobed collection.
[2016-05-27] MEDS ORDERED: Furosemide IV* 10 MG/ML VIAL (40 MG) IV SLOW PU ONE (12:38)
[2016-05-27] MEDS: GuaiFENesin DM* 5 ML UDC PO PRN (15:26)
[2016-05-27] MEDS ORDERED: TPN* 24 HR with Dextrose 50% Water* 500 ML, Amino Acid Infusion 10%* 850 ML, Lipid Emul... TPN SCH ×13 (17:00)
[2016-05-27] MEDS ORDERED: Potassium Chlor TAB* 20 MEQ TAB.ER PO ONE (19:12)
[2016-05-27] MEDS: HYDROmorphone INJ* 1 MG/ML CARPUJECT SYRINGE IV SLOW PU PRN ×2 (19:48→23:53)
[2016-05-27] MEDS: Baclofen TAB* 10 MG PO SCH (22:06)
[2016-05-27] MEDS: Levofloxacin 750 MG IVPREMIX(* 750 MG/150 ML BAG IVPB SCH (22:07)
[2016-05-27] MEDS: Nicotine Patch Removal NOTE PATCH OFF SCH (22:07)
[2016-05-28] MEDS: Metoprolol Tartrate IV* 1 MG/ML 5 ML VIAL IV SCH ×4 (02:46→20:47)
[2016-05-28] MEDS: Baclofen TAB* 10 MG PO PRN ×2 (02:46→12:38)
[2016-05-28] MEDS: Heparin VIAL(*) 5000 UNITS/ML VIAL (FIVE THOUSAND) SUBCUT SCH ×3 (05:34→21:04)
[2016-05-28 05:50] LABS: Hematocrit 42 % (42-52); Hemoglobin 14.1 g/dl (14.0-18.0); Mean Corpuscular HGB Conc 33 g/dl (31-36); Mean Corpuscular Hemoglobin 35 pg (27-31); Mean Corpuscular Volume 104 fL (80-94); Mean Platelet Volume 10 um3 (7.4-10.4); Red Blood Count 4.08 10^6/ul (4.0-5.4); Red Cell Distribution Width 15 % (10.5-15); White Blood Count 12.6 10^3/ul (3.5-10.8)
[2016-05-28 06:13] LABS: BUN/Creatinine Ratio 30.8 (8-20); Calcium 7.7 mg/dL (8.6-10.3); EGFR African American 154.9 (>60); EGFR Non-African American 120.4 (>60); Globulin 2.6 g/dL (2-4); Phosphorus 2.6 mg/dL (2.5-5.0); Potassium 4.2 mmol/L (3.5-5.0); Total Bilirubin 0.3 mg/dL (0.2-1.0); Total Protein 4.6 g/dL (6.4-8.9)
[2016-05-28 06:37] LABS: C Reactive Protein 118.56 mg/L (< 5.00)
[2016-05-28] MEDS: Pantoprazole IV* 40 MG IV SCH (08:53)
[2016-05-28] MEDS: GuaiFENesin DM* 5 ML UDC PO PRN (09:04)
[2016-05-28] MEDS: Mometasone/Formoter 100/5 MDI INH SCH ×2 (09:37→21:56)
[2016-05-28] MEDS ORDERED: Furosemide IV* 10 MG/ML 10 ML VIAL (100 MG) IV ONE (12:27)
[2016-05-28] MEDS: Nicotine PATCH 14 MG/24 HR* PATCH TRANSDERM SCH (12:37)
--- NOTE | 2016-05-28 13:56 | PN ---
Subjective Date of Service: 05/28/16 Interval History: Patient states he feels better today. Pain is not bothersome, cough seems to be improving. Still with intermittent hiccups which are frustrating. No fever or chills. Ambulated last night. Family History: Unchanged from Admission Social History: Unchanged from Admission Past Medical History: Unchanged from Admission Objective Active Medications: Albuterol (Ventolin 2.5 Mg/3 Ml Neb.Sultana*) 2.5 mg INH Q4H PRN Baclofen (Lioresal Tab*) 10 mg PO TID PRN Baclofen (Lioresal Tab*) 10 mg PO BEDTIME [facility] Guaifenesin/Dextromethorphan (Robitussin Dm*) 5 ml PO Q4H PRN Heparin Sodium (Porcine) (Heparin Vial(*)) 5,000 units SUBCUT Q8HR [facility] Heparin Sodium (Porcine) (Heparin Flush Picc/Ml/Cvc(*)) 1 - 3 ml FLUSH 0600, 1800 [facility] Hydromorphone HCl (Dilaudid Iv*) 1 mg IV SLOW PU Q4H PRN Levofloxacin/Dextrose (Levaquin 750 Mg Ivpremix(*)) 750 mg in 150 mls @ 100 mls /hr IVPB Q24H [facility] Dextrose 500 ml/ Amino Acids 850 ml/ Fat Emulsion Intravenous 250 ml/ Sodium Chloride 100 meq/ Potassium Chloride 50 meq/ Potassium Phosphate 15 mmole/ Calcium Gluconate 15 meq/ Magnesium Sulfate 10 meq/ Multivitamins 10 ml/ Trace Metals 3 ml/Sterile Water 150 ml/ Insulin Human Regular 10 units/Nutrition ( Parenteral) 1,852.821 mls @ 77.088 mls/hr TPN 1700 [facility] Dextrose 500 ml/ Amino Acids 850 ml/ Fat Emulsion Intravenous 250 ml/ Sodium Chloride 100 meq/ Potassium Chloride 50 meq/ Potassium Phosphate 15 mmole/ Calcium Gluconate 15 meq/ Magnesium Sulfate 10 meq/ Multivitamins 10 ml/ Trace Metals 3 ml/Sterile Water 150 ml/ Insulin Human Regular 15 units/Nutrition ( Parenteral) 1,852.871 mls @ 77.2 mls/hr TPN 1700 [facility] Metoprolol Tartrate (Lopressor Iv*) 5 mg IV Q6H [facility] Mometasone Furoate/Formoterol Fumar (Dulera 100/5 Mdi*) 2 puff INH BID [facility] Nicotine (Nicotine Inhaler*) 10 mg INH Q2H PRN Nicotine (Nicotine Patch 14 Mg/24 Hr*) 1 patch TRANSDERM Q24H [facility] Pantoprazole Sodium (Protonix Iv*) 40 mg IV DAILY [facility] Pharmacy Profile Note (Nicotine Patch Removal Note*) 1 note PATCH OFF 2100 [facility] Vital Signs 05/27/16 05/27/16 05/27/16 15:09 19:48 20:00 Temperature 97.5 F Pulse Rate 80 129 Respiratory 24 20 Rate Blood Pressure 156/62 (mmHg) O2 Sat by Pulse 97 95 Oximetry 05/28/16 11:20 Temperature 98.1 F Pulse Rate 93 Respiratory 16 Rate Blood Pressure 148/74 (mmHg) O2 Sat by Pulse 94 Oximetry Oxygen Devices in Use Now: Nasal Cannula - 3L Appearance: Elderly, M, laying in bed in NAD Eyes: No Scleral Icterus Ears/Nose/Mouth/Throat: - - Dry MM Neck: NL Appearance and Movements; NL JVP Respiratory: Symmetrical Chest Expansion and Respiratory Effort, - - Absent in bases Cardiovascular: NL Sounds; No Murmurs; No JVD, RRR Abdominal: - - Soft, mild distension, non-tender, BS+ Lymphatic: No Cervical Adenopathy Extremities: No Edema Skin: No Rash or Ulcers Neurological: Alert and Oriented x 3 Result Diagrams: 05/28/16 05:10 05/28/16 05:10 Assess/Plan/Problems-Billing Assessment: Mr. Taylor is a 75 yo male with PMH of recent admission for pancreatitis who returns with abdominal pain and concern for persistent pancreatitis, acute vs chronic, with pancreatic cyst and necrosis. - Patient Problems (1) Pancreatitis Current Visit: Yes Comment: Appreciate GI and ICU assistance. Continue NPO and TPN via PICC. Repeat imaging (CT abd/pelvis) showed increasing size of pseudocyst with stable area of necrosis. Kathy spoke with Surgery on 05/26 who did not feel that they would aspirate the pseudocyst. No fevers, will hold on additional ABx or aspiration of pseudocyst at this point. Lipase and CRP trending down. Spoke with Dr. Garcia who will re-evaluate imaging to see if patient may benefit from transfer for pancreatic stent (2) SOB (shortness of breath) Current Visit: Yes Comment: Appreciate ICU consult. Likely multifactorial due to fluid overload/third spacing, pneumonia, ?ARDS. Dypsnea on exertion and hypoxia persists. CT chest more consistent with pleural effusion and atelectasis with third spacing due to pancreatitis. Will complete course of Levaquin (Day 4) for possible underlying PNA. Redose with IV Lasix again today. Wean O2 as able. (3) NSVT (nonsustained ventricular tachycardia) Current Visit: Yes Comment: Continue IV metoprolol. (4) HTN (hypertension) Current Visit: No Comment: Continue IV metoprolol while NPO. Holding amlodipine. (5) Hyperglycemia Current Visit: Yes Comment: Improved, increase TPN insulin to 15 units. HgbA1c 6.0. (6) DVT prophylaxis Current Visit: No Comment: HSQ Status and Disposition: Inpatient with expected LOS > 2 days. Anticipate discharge to home when medically stable unless transfer required.
[2016-05-28] MEDS: TPN* 24 HR with Dextrose 50% Water* 500 ML, Amino Acid Infusion 10%* 850 ML, Lipid Emul... TPN SCH ×13 (17:22)
[2016-05-28] MEDS: HYDROmorphone INJ* 1 MG/ML CARPUJECT SYRINGE IV SLOW PU PRN ×2 (18:05→22:47)
[2016-05-28] MEDS: Baclofen TAB* 10 MG PO SCH (20:46)
[2016-05-28] MEDS: Levofloxacin 750 MG IVPREMIX(* 750 MG/150 ML BAG IVPB SCH (20:47)
[2016-05-28] MEDS: Nicotine Patch Removal NOTE PATCH OFF SCH (21:00)
[2016-05-29] MEDS: Metoprolol Tartrate IV* 1 MG/ML 5 ML VIAL IV SCH ×4 (02:55→20:42)
[2016-05-29] MEDS: Heparin VIAL(*) 5000 UNITS/ML VIAL (FIVE THOUSAND) SUBCUT SCH ×3 (05:43→21:31)
[2016-05-29 06:02] LABS: BUN/Creatinine Ratio 32.3 (8-20); Calcium 7.9 mg/dL (8.6-10.3); EGFR African American 163.5 (>60); EGFR Non-African American 127.2 (>60); Potassium 3.9 mmol/L (3.5-5.0)
[2016-05-29] MEDS: Pantoprazole IV* 40 MG IV SCH (07:28)
[2016-05-29] MEDS: Baclofen TAB* 10 MG PO PRN (07:28)
[2016-05-29] MEDS: Mometasone/Formoter 100/5 MDI INH SCH ×2 (08:56→19:35)
--- NOTE | 2016-05-29 09:56 | PN ---
Subjective Date of Service: 05/29/16 Interval History: Patient seen this morning. Frustrated by continued hiccups. Agreeable to transfer if needed for pancreatic duct stent. States pain is controlled and denies SOB. Cough still present but improving as well. No fever or chills. Family History: Unchanged from Admission Social History: Unchanged from Admission Past Medical History: Unchanged from Admission Objective Active Medications: Albuterol (Ventolin 2.5 Mg/3 Ml Neb.Sultana*) 2.5 mg INH Q4H PRN Baclofen (Lioresal Tab*) 10 mg PO TID PRN Baclofen (Lioresal Tab*) 10 mg PO BEDTIME [facility] Guaifenesin/Dextromethorphan (Robitussin Dm*) 5 ml PO Q4H PRN Heparin Sodium (Porcine) (Heparin Vial(*)) 5,000 units SUBCUT Q8HR [facility] Heparin Sodium (Porcine) (Heparin Flush Picc/Ml/Cvc(*)) 1 - 3 ml FLUSH 0600, 1800 [facility] Hydromorphone HCl (Dilaudid Iv*) 1 mg IV SLOW PU Q4H PRN Levofloxacin/Dextrose (Levaquin 750 Mg Ivpremix(*)) 750 mg in 150 mls @ 100 mls /hr IVPB Q24H [facility] Dextrose 500 ml/ Amino Acids 850 ml/ Fat Emulsion Intravenous 250 ml/ Sodium Chloride 100 meq/ Potassium Chloride 50 meq/ Potassium Phosphate 15 mmole/ Calcium Gluconate 15 meq/ Magnesium Sulfate 10 meq/ Multivitamins 10 ml/ Trace Metals 3 ml/Sterile Water 150 ml/ Insulin Human Regular 15 units/Nutrition ( Parenteral) 1,852.871 mls @ 77.2 mls/hr TPN 1700 [facility] Metoprolol Tartrate (Lopressor Iv*) 5 mg IV Q6H [facility] Mometasone Furoate/Formoterol Fumar (Dulera 100/5 Mdi*) 2 puff INH BID [facility] Nicotine (Nicotine Inhaler*) 10 mg INH Q2H PRN Nicotine (Nicotine Patch 14 Mg/24 Hr*) 1 patch TRANSDERM Q24H [facility] Pantoprazole Sodium (Protonix Iv*) 40 mg IV DAILY [facility] Pharmacy Profile Note (Nicotine Patch Removal Note*) 1 note PATCH OFF 2100 [facility] Vital Signs 05/28/16 05/28/16 05/28/16 11:20 15:26 16:41 Temperature 98.1 F 97.7 F 98.2 F Pulse Rate 93 95 107 Respiratory 16 16 Rate Blood Pressure 148/74 155/76 151/75 (mmHg) O2 Sat by Pulse 94 95 96 Oximetry 05/28/16 05/28/16 05/28/16 18:05 19:05 19:49 Temperature 98.4 F Pulse Rate 93 Respiratory 16 16 16 Rate Blood Pressure 152/78 (mmHg) O2 Sat by Pulse 86 Oximetry 05/28/16 05/28/16 05/28/16 20:05 21:05 22:05 Temperature Pulse Rate Respiratory 16 16 16 Rate Blood Pressure (mmHg) O2 Sat by Pulse Oximetry 05/28/16 05/28/16 05/28/16 22:47 23:05 23:18 Temperature 98.2 F Pulse Rate 106 Respiratory 16 16 16 Rate Blood Pressure 152/72 (mmHg) O2 Sat by Pulse 94 Oximetry 05/28/16 05/29/16 05/29/16 23:47 00:42 02:50 Temperature 97.4 F Pulse Rate 115 Respiratory 16 16 16 Rate Blood Pressure 175/76 (mmHg) O2 Sat by Pulse 96 Oximetry 05/29/16 05/29/16 05/29/16 05:18 07:56 08:00 Temperature 97.5 F 97.4 F Pulse Rate 106 109 Respiratory 16 18 20 Rate Blood Pressure 160/77 148/69 (mmHg) O2 Sat by Pulse 91 93 Oximetry 05/29/16 05/29/16 08:57 08:58 Temperature Pulse Rate 102 102 Respiratory 19 19 Rate Blood Pressure (mmHg) O2 Sat by Pulse 97 97 Oximetry Oxygen Devices in Use Now: Nasal Cannula - 1L Appearance: Elderly, M, laying in bed in NAD Eyes: No Scleral Icterus Ears/Nose/Mouth/Throat: Mucous Membranes Moist Neck: NL Appearance and Movements; NL JVP Respiratory: Symmetrical Chest Expansion and Respiratory Effort, - - Diminshed BS throughout, no rales appreciated Cardiovascular: NL Sounds; No Murmurs; No JVD, RRR Abdominal: - - Soft, mild distension, non-tender, BS+ Lymphatic: No Cervical Adenopathy Extremities: No Edema Skin: No Rash or Ulcers Neurological: Alert and Oriented x 3 Result Diagrams: 05/28/16 05:10 05/29/16 05:30 Assess/Plan/Problems-Billing Assessment: Mr. Taylor is a 75 yo male with PMH of recent admission for pancreatitis who returns with abdominal pain and concern for persistent pancreatitis, acute vs chronic, with pancreatic cyst and necrosis. - Patient Problems (1) Pancreatitis Current Visit: Yes Comment: Appreciate GI and ICU assistance. Continue NPO and TPN via PICC. Repeat imaging (CT abd/pelvis) showed increasing size of pseudocyst with stable area of necrosis. Kathy spoke with Surgery on 05/26 who did not feel that they would aspirate the pseudocyst. No fevers, will hold on additional ABx or aspiration of pseudocyst at this point. Lipase and CRP trending down. Dr Garcia recommends transfer to tertiary care center for pancreatic duct stent. Accepted to [facility], awaiting bed. (2) SOB (shortness of breath) Current Visit: Yes Comment: Appreciate ICU consult. Likely multifactorial due to fluid overload/third spacing, pneumonia, ?ARDS. Dypsnea on exertion and hypoxia persists. CT chest more consistent with pleural effusion and atelectasis with third spacing due to pancreatitis. Will complete course of Levaquin (Day 5) for possible underlying PNA. O2 nearly off. Hold on additional Lasix for now. (3) NSVT (nonsustained ventricular tachycardia) Current Visit: Yes Comment: Continue IV metoprolol. (4) HTN (hypertension) Current Visit: No Comment: Continue IV metoprolol while NPO. Holding amlodipine. (5) Hyperglycemia Current Visit: Yes Comment: Continue insulin 15 units in TPN. HgbA1c 6.0. (6) DVT prophylaxis Current Visit: No Comment: HSQ Status and Disposition: Inpatient with expected LOS > 2 days. Awaiting transfer for placement of pancreatic duct stent
[2016-05-29] MEDS: Metoclopramide TAB* 10 MG PO PRN ×2 (10:05→16:43)
[2016-05-29] MEDS: Nicotine PATCH 14 MG/24 HR* PATCH TRANSDERM SCH (10:06)
[2016-05-29] MEDS: GuaiFENesin DM* 5 ML UDC PO PRN (13:56)
[2016-05-29 14:47] LABS: Body Fluid Appearance Cloudy
[2016-05-29] MEDS: HYDROmorphone INJ* 1 MG/ML CARPUJECT SYRINGE IV SLOW PU PRN ×2 (15:26→21:32)
[2016-05-29 15:35] LABS: Body Fluid Total Cells Counted 100
[2016-05-29] MEDS: TPN* 24 HR with Dextrose 50% Water* 500 ML, Amino Acid Infusion 10%* 850 ML, Lipid Emul... TPN SCH ×13 (16:43)
--- NOTE | 2016-05-29 18:04 | RAD ---
CPT II Codes: 6100F ULTRASOUND-GUIDED PARACENTESIS. INDICATION: Pancreatic pseudocysts, ascites and sepsis. COMPARISON: CT dated May 25, 2016 IMAGING FINDINGS AND PROCEDURE NOTE: The benefits of the and risks of procedure explained to the patient. The patient consented of the exam. The patient was brought to the ultrasound suite and multiple images of the peritoneal fluid were obtained. There was a small to moderate amount of ascites present throughout the abdomen. The largest pocket of fluid was chosen for the paracentesis which was in the right lower quadrant. A time out was performed before beginning the procedure. The patient was prepped and draped in the usual sterile fashion. The patient?s abdominal wall at the site was anesthetized with 1% lidocaine. A small skin cortez was made to admit the paracentesis needle and catheter. Under sonographic control the drainage catheter was advanced into the ascites pocket. An image was saved. Approximately 0.325 Liters of a yellow tinged fluid was removed and delivered to the laboratory as requested. The patient tolerated procedure well without incident. IMPRESSION: UNCOMPLICATED ULTRASOUND-GUIDED PARACENTESIS DESCRIBED ABOVE.
[2016-05-29] MEDS: Nicotine Patch Removal NOTE PATCH OFF SCH (20:42)
[2016-05-29] MEDS: Levofloxacin 750 MG IVPREMIX(* 750 MG/150 ML BAG IVPB SCH (20:42)
[2016-05-29] MEDS: Baclofen TAB* 10 MG PO SCH (20:42)
[2016-05-30] MEDS: Metoprolol Tartrate IV* 1 MG/ML 5 ML VIAL IV SCH ×4 (03:06→20:48)
[2016-05-30] MEDS: HYDROmorphone INJ* 1 MG/ML CARPUJECT SYRINGE IV SLOW PU PRN ×4 (03:10→20:36)
[2016-05-30] MEDS: Metoclopramide TAB* 10 MG PO PRN ×2 (03:28→10:34)
--- NOTE | 2016-05-30 05:04 | DS ---
DISCHARGE SUMMARY: DATE OF ADMISSION: 05/21/16 DATE OF TRANSFER: 05/30/16 PRIMARY CARE PHYSICIAN: Dr. Haresh Bueno. GASTROENTEROLOGY: Dr. Riki Garcia. CONSULTATIONS DURING HOSPITALIZATION: Dr. Riki Garcia, Gastroenterology. PRINCIPAL DISCHARGE DIAGNOSES: 1. 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 2. Hospital acquired pneumonia. SECONDARY DIAGNOSES: 1. Hypertension. 2. Peripheral vascular disease. 3. Lung nodules with recent workup negative for malignancy. MEDICATIONS ON DISCHARGE: 1. Albuterol 2.5 mg inhale every 4 hours as needed for shortness of breath or wheezing. 2. Baclofen 10 mg by mouth 3 times daily as needed for hiccups. 3. Robitussin DM 5 mL by mouth every 4 hours as needed for cough. 4. Heparin subcu 5000 units subcutaneous every 8 hours. 5. Hydromorphone 1 mg IV every 4 hours as needed for pain. 6. Reglan 5 mg by mouth every 6 hours as needed for hiccups. 7. Metoprolol tartrate 5 mg IV every 6 hours. 8. Dulera 2 puffs inhaled 3 times daily. 9. Nicotine inhaler 10 mg inhale every 2 hours as needed for nicotine replacement. 10. TPN Protonix 40 mg IV daily. HISTORY OF PRESENT ILLNESS AND HOSPITAL SUMMARY: Please see the full history and physical by Usha Mason for full details. Briefly, Mr. Taylor is a 75- year-old man who was recently hospitalized at [facility] for acute pancreatitis and discharged on 05/19/16. He presented back to the hospital on 05/21 with recurrence of abdominal pain after a possible dietary indiscretion. The patient had a recent pancreatic lesion that was thought to be a pseudocyst on the previous hospitalization. During this hospitalization reimaging showed increased size of the pseudocyst as well as a possible pancreatic duct obstruction. Gastroenterology was consulted and decision was made to insert a PICC line and provide the patient with TPN. Over the following days, the patient's pain improved. His lipase normalized. However, due to the possible pancreatic duct obstruction, it was felt that he would probably benefit from pancreatic duct stenting to alleviate the obstruction. The patient underwent a paracentesis on 05/29/16 to confirm that this ascites was secondary to his pancreatitis. At this time, an amylase level for the pancreatic fluid is pending. During the course of the hospitalization, the patient developed some worsening hypoxia which was felt to be due to a combination of fluid overload and possibly the development of pneumonia. The patient was treated with Levaquin with improvement of his symptoms. At the time of this summary, the patient was weaned down to 1 liter of oxygen for a maximum of 5. Dr. Garcia spoke with the GI team at [facility] and the patient will be transferred with plans for pancreatic duct stenting. TIME SPENT: Total time spent on this discharge 45 minutes. This is a summary of the hospitalization. Please see the full medical record for further details. CC: Dr. Haresh Bueno; Dr. Riki Garcia* [id number]/[facility] #: [id number] MTDD
[2016-05-30] MEDS: Heparin VIAL(*) 5000 UNITS/ML VIAL (FIVE THOUSAND) SUBCUT SCH ×3 (05:25→20:59)
[2016-05-30 06:22] LABS: ALT 33 U/L (7-52); Albumin 2.2 g/dL (3.2-5.2); Alkaline Phosphatase 91 U/L (34-104); BUN/Creatinine Ratio 32.3 (8-20); Blood Urea Nitrogen 20 mg/dL (6-24); CO2 Carbon Dioxide 29 mmol/L (22-32); Calcium 7.9 mg/dL (8.6-10.3); Chloride 101 mmol/L (101-111); EGFR African American 163.5 (>60); EGFR Non-African American 127.2 (>60); Globulin 2.9 g/dL (2-4); Glucose 114 mg/dL (70-100); Phosphorus 3.2 mg/dL (2.5-5.0); Sodium 133 mmol/L (133-145); Total Protein 5.1 g/dL (6.4-8.9); Triglycerides 67 mg/dL
[2016-05-30] MEDS: Mometasone/Formoter 100/5 MDI INH SCH (08:19)
[2016-05-30] MEDS: Nicotine PATCH 14 MG/24 HR* PATCH TRANSDERM SCH (10:34)
[2016-05-30] MEDS: Pantoprazole IV* 40 MG IV SCH (10:38)
[2016-05-30] MEDS: Baclofen TAB* 10 MG PO PRN (12:46)
[2016-05-30] MEDS ORDERED: chlorproMAZINE TAB* 25 MG PO PRN (13:24)
[2016-05-30] MEDS ORDERED: Furosemide IV* 10 MG/ML VIAL (40 MG) IV ONE (13:26)
--- NOTE | 2016-05-30 13:27 | PN ---
Subjective Date of Service: 05/30/16 Interval History: Patient seen this afternoon. Reports that he had some N/V after inhaler yesterday would like to discontinue. Otherwise feels well, no chest pain, abdominal pain. Cough still present but mild. Family History: Unchanged from Admission Social History: Unchanged from Admission Past Medical History: Unchanged from Admission Objective Active Medications: Baclofen (Lioresal Tab*) 10 mg PO TID PRN Baclofen (Lioresal Tab*) 10 mg PO BEDTIME [facility] Guaifenesin/Dextromethorphan (Robitussin Dm*) 5 ml PO Q4H PRN Heparin Sodium (Porcine) (Heparin Vial(*)) 5,000 units SUBCUT Q8HR [facility] Heparin Sodium (Porcine) (Heparin Flush Picc/Ml/Cvc(*)) 1 - 3 ml FLUSH 0600, 1800 [facility] Hydromorphone HCl (Dilaudid Iv*) 1 mg IV SLOW PU Q4H PRN Dextrose 500 ml/ Amino Acids 850 ml/ Fat Emulsion Intravenous 250 ml/ Sodium Chloride 100 meq/ Potassium Chloride 50 meq/ Potassium Phosphate 15 mmole/ Calcium Gluconate 15 meq/ Magnesium Sulfate 10 meq/ Multivitamins 10 ml/ Trace Metals 3 ml/Sterile Water 150 ml/ Insulin Human Regular 15 units/Nutrition ( Parenteral) 1,852.871 mls @ 77.2 mls/hr TPN 1700 [facility] Metoclopramide HCl (Reglan Tab*) 5 mg PO Q6H PRN Metoprolol Tartrate (Lopressor Iv*) 5 mg IV Q6H [facility] Nicotine (Nicotine Inhaler*) 10 mg INH Q2H PRN Nicotine (Nicotine Patch 14 Mg/24 Hr*) 1 patch TRANSDERM Q24H [facility] Pantoprazole Sodium (Protonix Iv*) 40 mg IV DAILY [facility] Pharmacy Profile Note (Nicotine Patch Removal Note*) 1 note PATCH OFF 2100 [facility] Vital Signs 05/29/16 05/29/16 05/29/16 13:27 14:43 15:26 Temperature 97.5 F Pulse Rate 102 88 Respiratory 16 18 20 Rate Blood Pressure 173/81 156/81 (mmHg) O2 Sat by Pulse 95 96 Oximetry 05/30/16 05/30/16 05/30/16 03:10 03:40 04:10 Temperature 97.6 F Pulse Rate 102 Respiratory 22 16 22 Rate Blood Pressure 175/90 (mmHg) O2 Sat by Pulse 93 Oximetry 05/30/16 05/30/16 05/30/16 08:01 08:20 10:37 Temperature 97.4 F Pulse Rate 90 88 Respiratory 22 16 16 Rate Blood Pressure 161/72 (mmHg) O2 Sat by Pulse 94 95 Oximetry Oxygen Devices in Use Now: Nasal Cannula - 1L Appearance: Elderly, M, laying in bed in NAD Eyes: No Scleral Icterus Ears/Nose/Mouth/Throat: Mucous Membranes Moist Neck: NL Appearance and Movements; NL JVP Respiratory: Symmetrical Chest Expansion and Respiratory Effort, - - Diminished in bases, otherwise clear Cardiovascular: NL Sounds; No Murmurs; No JVD, RRR Abdominal: - - Mild distension, non-tender, BS+ Lymphatic: No Cervical Adenopathy Extremities: No Edema Skin: No Rash or Ulcers Neurological: Alert and Oriented x 3 Result Diagrams: 05/28/16 05:10 05/30/16 07:03 Microbiology and Other Data: Microbiology 05/29/16 12:42 Gram Stain - Final Peritoneal Fluid Body Fluid Culture - Preliminary No Growth Day 1 Assess/Plan/Problems-Billing Assessment: Mr. Taylor is a 75 yo male with PMH of recent admission for pancreatitis who returns with abdominal pain and concern for persistent pancreatitis, acute vs chronic, with pancreatic cyst and necrosis. - Patient Problems (1) Pancreatitis Current Visit: Yes Comment: Appreciate GI and ICU assistance. Continue NPO and TPN via PICC. Repeat imaging (CT abd/pelvis) showed increasing size of pseudocyst with stable area of necrosis. Kathy spoke with Surgery on 05/26 who did not feel that they would aspirate the pseudocyst. No fevers, will hold on additional ABx or aspiration of pseudocyst at this point. Lipase and CRP trending down. Dr Garcia recommends transfer to tertiary care center for pancreatic duct stent. Accepted to [facility], awaiting bed. (2) SOB (shortness of breath) Current Visit: Yes Comment: Appreciate ICU consult. Likely multifactorial due to fluid overload/third spacing, pneumonia, ?ARDS. Dypsnea on exertion and hypoxia persists. CT chest more consistent with pleural effusion and atelectasis with third spacing due to pancreatitis. S/P 5 day course of Levaquin. O2 nearly off. Redose with Lasix x1 (3) NSVT (nonsustained ventricular tachycardia) Current Visit: Yes Comment: Continue IV metoprolol. Echo unremarkable. (4) HTN (hypertension) Current Visit: No Comment: Continue IV metoprolol while NPO. Holding amlodipine. (5) Hyperglycemia Current Visit: Yes Comment: Continue insulin 15 units in TPN. HgbA1c 6.0. (6) DVT prophylaxis Current Visit: No Comment: HSQ Status and Disposition: Inpatient with expected LOS > 2 days. Awaiting transfer for placement of pancreatic duct stent
[2016-05-30] MEDS: TPN* 24 HR with Dextrose 50% Water* 500 ML, Amino Acid Infusion 10%* 850 ML, Lipid Emul... TPN SCH ×13 (17:05)
--- NOTE | 2016-05-30 17:17 | PN ---
Hospitalist Progress Note Spoke to Dr. Rocha (Hospitalist service) at [facility] this morning who accepted Mr. Taylor as a transfer. Transfer center states they will let us know when a bed is available.
[2016-05-30 20:41] VITALS: BP 163/70
[2016-05-30] MEDS: Baclofen TAB* 10 MG PO SCH (20:57)
== END 2016-05-30 21:20 | disposition short-term general hospital (02) | DRG 264 ==
LOC: ED 08:33 → MEDTELE 10:10 → OBSVTOIN 05-22 21:12 → MED 05-28 15:45
PROVIDERS: ADMIT Internal Medicine; ATTEND Hospitalist
PROC: 02HV33Z Insertion of Infusion Device into Superior Vena Cava, Percutaneous Approach (ICD-10-PCS; 2016-05-27)
PROC: 3E0436Z Introduction of Nutritional Substance into Central Vein, Percutaneous Approach (ICD-10-PCS; 2016-05-27)
PROC: 0W9G3ZX Drainage of Peritoneal Cavity, Percutaneous Approach, Diagnostic (ICD-10-PCS; principal; 2016-05-29)
DX: K85.90 Acute pancreatitis without necrosis or infection, unspecified (principal); J18.9 Pneumonia, unspecified organism; I47.2 Ventricular tachycardia; R18.8 Other ascites; E87.70 Fluid overload, unspecified; J44.9 Chronic obstructive pulmonary disease, unspecified; E87.1 Hypo-osmolality and hyponatremia; K86.3 Pseudocyst of pancreas; K86.89 Other specified diseases of pancreas; I10 Essential (primary) hypertension; I73.9 Peripheral vascular disease, unspecified; R91.8 Other nonspecific abnormal finding of lung field; F17.210 Nicotine dependence, cigarettes, uncomplicated; T50.2X5A Adverse effect of carbonic-anhydrase inhibitors, benzothiadiazides and other diuretics, initial encounter; R79.89 Other specified abnormal findings of blood chemistry; E87.6 Hypokalemia; R06.6 Hiccough; Z96.652 Presence of left artificial knee joint; K59.00 Constipation, unspecified; R73.9 Hyperglycemia, unspecified; Z95.5 Presence of coronary angioplasty implant and graft; Z88.8 Allergy status to other drugs, medicaments and biological substances; Z72.89 Other problems related to lifestyle
CPT/HCPCS: 36415; 49083; 71010; 71275; 74020; 74160; 74183; 76705; 80048; 80053; 80320; 82150; 83036; 83605; 83690; 83735; 84100; 84478; 84484; 85025; 85610; 86140; 87070; 87205; 89051; 93005; 93306; 94640; 94760; 99406; A9270-GY; A9579; G0480; J1170; J1644; J1940; J2270; J3475; J3480; J3490; J7512; Q9967

== ENCOUNTER 2020-02-14 09:54 | Observation (INO) ==
[2020-02-14] MEDS ORDERED: methylPREDNISolone 125 mg 2 ML VIAL IV ONE (10:05)
[2020-02-14] MEDS ORDERED: Albuterol 2.5mg/3 ml (0.083%) NEB.SOLN INH ONE (10:07)
[2020-02-14 10:36] LABS: ABS Basophils 0.1 10^3/ul (0-0.2); ABS Eosinophils 0.1 10^3/ul (0-0.6); ABS Lymphocytes 0.7 10^3/ul (1.0-4.8); ABS Monocytes 0.7 10^3/ul (0-0.8); ABS Neutrophils 6.2 10^3/ul (1.5-7.7); Eosinophil % 0.7 %; Hematocrit 48 % (42-52); Hemoglobin 16.2 g/dL (14.0-18.0); Mean Corpuscular HGB Conc 34 g/dL (31-36); Mean Corpuscular Hemoglobin 34 pg (27-31); Mean Corpuscular Volume 101 fL (80-94); Mean Platelet Volume 8.6 fL (7.4-10.4); Platelet Count 287 10^3/uL (150-450); Red Blood Count 4.74 10^6 /uL (4.18-5.48); Red Cell Distribution Width 15 % (10-15); White Blood Count 7.7 10^3/uL (3.5-10.8)
[2020-02-14 10:56] LABS: ALT 13 U/L (7-52); AST 15 U/L (13-39); Albumin 3.2 g/dL (3.2-5.2); Alkaline Phosphatase 113 U/L (34-104); Anion Gap 5 mmol/L (2-11); BUN/Creatinine Ratio 12.7 (8-20); Blood Urea Nitrogen 10 mg/dL (6-24); C Reactive Protein 9.46 mg/L (<8.01); CO2 Carbon Dioxide 29 mmol/L (22-32); Calcium 8.5 mg/dL (8.6-10.3); Chloride 98 mmol/L (101-111); EGFR African American 115.1 (>60); EGFR Non-African American 95.1 (>60); Globulin 3.3 g/dL (2-4); Glucose 148 mg/dL (70-100); Sodium 132 mmol/L (135-145); Total Protein 6.5 g/dL (6.4-8.9)
[2020-02-14 10:58] LABS: Troponin I 0.05 ng/mL (<0.03)
[2020-02-14 11:09] LABS: Influenza A Molecular Negative (Negative); Influenza B Molecular Negative (Negative)
[2020-02-14] MEDS ORDERED: Azithromycin 500 mg/250 ml NS 500 MG/250 ML BAG IVPB ONE (11:52)
[2020-02-14] MEDS ORDERED: cefTRIAXone 1 gm/50 mL NS BAG 1 GM/50 ML BAG IV ONE (11:52)
[2020-02-14] MEDS ORDERED: Al Hydrox/Mg Hydrox/Simet LIQ 30 ML UDC PO PRN (12:39)
[2020-02-14] MEDS ORDERED: Ondansetron 4 mg VIAL 2 MG/ML 2 ml VIAL IV PRN (12:39)
[2020-02-14] MEDS ORDERED: Iohexol 350 (CONTRAST) 500 ML MDV IV ONE (12:42)
[2020-02-14] MEDS ORDERED: Albuterol HFA INHALER 8 gm MDI INH PRN (12:46)
[2020-02-14] MEDS ORDERED: NS 0.9% 1000 ml BAG 1,000 ML IV SCH (13:15)
[2020-02-14 14:18] LABS: Troponin I 0.04 ng/mL (<0.03)
[2020-02-14] MEDS: Nicotine PATCH 21 MG/24 HR PATCH TRANSDERM SCH (18:40)
[2020-02-14] MEDS: Mometasone/Formoter 200/5 MDI INH SCH (20:26)
[2020-02-14] MEDS ORDERED: Enoxaparin 40 MG/0.4 ML SYR SUBCUT SCH (21:00)
[2020-02-15 06:14] LABS: ABS Lymphocytes 0.5 10^3/ul (1.0-4.8); ABS Monocytes 1.1 10^3/ul (0-0.8); ABS Neutrophils 10.2 10^3/ul (1.5-7.7); Hematocrit 43 % (42-52); Hemoglobin 14.5 g/dL (14.0-18.0); Lymphocyte % 4.4 %; Mean Corpuscular HGB Conc 33 g/dL (31-36); Mean Corpuscular Hemoglobin 34 pg (27-31); Mean Corpuscular Volume 102 fL (80-94); Mean Platelet Volume 8.6 fL (7.4-10.4); Platelet Count 249 10^3/uL (150-450); Red Blood Count 4.26 10^6 /uL (4.18-5.48); Red Cell Distribution Width 15 % (10-15); White Blood Count 11.9 10^3/uL (3.5-10.8)
[2020-02-15 06:32] LABS: BUN/Creatinine Ratio 22.1 (8-20); EGFR African American 104.3 (>60); EGFR Non-African American 86.2 (>60); HDL Cholesterol 89.2 mg/dL; Potassium 4.3 mmol/L (3.5-5.0)
[2020-02-15] MEDS: Mometasone/Formoter 200/5 MDI INH SCH (08:05)
[2020-02-15] MEDS: Nicotine PATCH 21 MG/24 HR PATCH TRANSDERM SCH (09:00)
[2020-02-15] MEDS ORDERED: Aspirin EC 81 mg TAB.EC (enteric coated) PO SCH (09:00)
[2020-02-15] MEDS ORDERED: Multivitamins/Minerals TAB PO SCH (09:00)
[2020-02-15] MEDS ORDERED: GUANFACINE 1 MG PO ONE (09:10)
[2020-02-15 11:24] VITALS: BP 155/82
== END 2020-02-15 15:25 | disposition home or self-care (01) ==
LOC: ED 09:54 → MED 12:39 → INTOOBSV 12:39 → MED 15:25
PROVIDERS: ADMIT Pediatrics; ATTEND Internal Medicine

== ENCOUNTER 2020-04-30 20:35 | Inpatient (IN) ==
[2020-04-30 21:54] LABS: ABS Eosinophils 0.1 10^3/ul (0-0.6); ABS Lymphocytes 0.8 10^3/ul (1.0-4.8); ABS Monocytes 0.9 10^3/ul (0-0.8); ABS Neutrophils 12.3 10^3/ul (1.5-7.7); Eosinophil % 0.5 %; Hematocrit 46 % (42-52); Hemoglobin 16.1 g/dL (14.0-18.0); Lymphocyte % 5.4 %; Mean Corpuscular HGB Conc 35 g/dL (31-36); Mean Corpuscular Hemoglobin 35 pg (27-31); Mean Corpuscular Volume 102 fL (80-94); Mean Platelet Volume 8.4 fL (7.4-10.4); Platelet Count 335 10^3/uL (150-450); Red Blood Count 4.54 10^6 /uL (4.18-5.48); Red Cell Distribution Width 14 % (10-15); White Blood Count 14.1 10^3/uL (3.5-10.8)
[2020-04-30 22:03] LABS: INR 0.94 (0.82-1.09)
[2020-04-30 22:13] LABS: Influenza A Molecular Negative (Negative); Influenza B Molecular Negative (Negative)
[2020-04-30 22:15] LABS: ALT 17 U/L (7-52); AST 20 U/L (13-39); Albumin 3.4 g/dL (3.2-5.2); Albumin/Globulin Ratio 1.1 (1-3); Alkaline Phosphatase 109 U/L (34-104); Anion Gap 5 mmol/L (2-11); BUN/Creatinine Ratio 15.8 (8-20); Blood Urea Nitrogen 16 mg/dL (6-24); CO2 Carbon Dioxide 37 mmol/L (22-32); Chloride 95 mmol/L (101-111); EGFR African American 86.7 (>60); EGFR Non-African American 71.6 (>60); Globulin 3.1 g/dL (2-4); Glucose 186 mg/dL (70-100); Potassium 4.5 mmol/L (3.5-5.0); Sodium 137 mmol/L (135-145); Total Protein 6.5 g/dL (6.4-8.9)
[2020-04-30] MEDS ORDERED: NS 0.9% 1000 ml BAG 1,000 ML IV SCH (22:15)
[2020-04-30 22:24] LABS: Troponin I 0.06 ng/mL (<0.03)
[2020-04-30] MEDS ORDERED: Furosemide 20 mg/2 ml IV VIAL IV SLOW PU ONE (22:33)
[2020-04-30 22:56] LABS: C Reactive Protein 9.92 mg/L (<8.01)
[2020-04-30] MEDS ORDERED: Albuterol/Ipratropium NEB.SOL (2.5/0.5 MG) 3 ML NEB.SOLN INH SCH (23:00)
[2020-04-30 23:30] LABS: Erythrocyte Sed Rate 1 mm/Hr (0-19)
[2020-05-01] MEDS: methylPREDNISolone 125 mg 2 ML VIAL IV SCH ×4 (00:33→23:30)
[2020-05-01] MEDS: Azithromycin 500 mg/250 ml NS 500 MG/250 ML BAG IVPB SCH ×2 (00:33→23:29)
[2020-05-01] MEDS: Albuterol HFA INHALER 8 gm MDI INH SCH ×7 (01:03→22:42)
[2020-05-01 01:10] LABS: Troponin I 0.08 ng/mL (<0.03)
[2020-05-01 04:45] LABS: ABS Lymphocytes 0.2 10^3/ul (1.0-4.8); ABS Monocytes 0.1 10^3/ul (0-0.8); ABS Neutrophils 8.4 10^3/ul (1.5-7.7); Eosinophil % 0.1 %; Hematocrit 44 % (42-52); Hemoglobin 14.7 g/dL (14.0-18.0); Lymphocyte % 1.9 %; Mean Corpuscular HGB Conc 33 g/dL (31-36); Mean Corpuscular Hemoglobin 34 pg (27-31); Mean Corpuscular Volume 103 fL (80-94); Mean Platelet Volume 8.6 fL (7.4-10.4); Platelet Count 300 10^3/uL (150-450); Red Cell Distribution Width 14 % (10-15); White Blood Count 8.7 10^3/uL (3.5-10.8)
[2020-05-01 04:50] LABS: INR 0.94 (0.82-1.09)
[2020-05-01 04:59] LABS: Anion Gap 4 mmol/L (2-11); Blood Urea Nitrogen 18 mg/dL (6-24); CO2 Carbon Dioxide 34 mmol/L (22-32); Calcium 8.3 mg/dL (8.6-10.3); Chloride 96 mmol/L (101-111); EGFR African American 87.7 (>60); EGFR Non-African American 72.5 (>60); Glucose 202 mg/dL (70-100); Potassium 4.7 mmol/L (3.5-5.0); Sodium 134 mmol/L (135-145)
[2020-05-01 05:10] LABS: Troponin I 0.07 ng/mL (<0.03)
[2020-05-01] MEDS: Heparin 5000 UNITS/ML 1 mL VIAL SUBCUT SCH ×3 (05:41→20:33)
[2020-05-01 06:06] LABS: Magnesium 2.3 mg/dL (1.9-2.7)
[2020-05-01] MEDS: Mometasone/Formoter 200/5 MDI INH SCH ×2 (07:12→18:59)
[2020-05-01] MEDS: SPIRIVA Respimat (tiotropium) 2.5 mcg/inh Inhaler INH SCH (07:13)
[2020-05-01] MEDS: Aspirin EC 81 mg TAB.EC (enteric coated) PO SCH (08:17)
[2020-05-01] MEDS: Multivitamins/Minerals TAB PO SCH (08:18)
[2020-05-01] MEDS ORDERED: Multivitamins/Minerals TAB PO SCH (09:00)
[2020-05-01] MEDS: Nicotine PATCH 14 MG/24 HR PATCH TRANSDERM SCH (12:33)
[2020-05-01 13:57] LABS: Phosphorus 3.9 mg/dL (2.5-5.0)
[2020-05-01] MEDS ORDERED: Magnesium Sulfate 2 gm BAG 2 GM/50 ML BAG IVPB ONE (14:09)
[2020-05-01] MEDS: Albuterol 2.5mg/3 ml (0.083%) NEB.SOLN INH PRN ×2 (18:59→22:42)
[2020-05-01] MEDS: cefTRIAXone 1 gm/50 mL NS BAG 1 GM/50 ML BAG IVPB SCH (22:02)
[2020-05-02] MEDS: Albuterol HFA INHALER 8 gm MDI INH SCH ×6 (03:02→22:55)
[2020-05-02] MEDS: Albuterol 2.5mg/3 ml (0.083%) NEB.SOLN INH PRN (04:22)
[2020-05-02 04:35] LABS: ABS Lymphocytes 0.2 10^3/ul (1.0-4.8); ABS Monocytes 0.5 10^3/ul (0-0.8); ABS Neutrophils 16.9 10^3/ul (1.5-7.7); Hematocrit 43 % (42-52); Hemoglobin 14.3 g/dL (14.0-18.0); Lymphocyte % 1.2 %; Mean Corpuscular HGB Conc 34 g/dL (31-36); Mean Corpuscular Hemoglobin 34 pg (27-31); Mean Corpuscular Volume 102 fL (80-94); Mean Platelet Volume 8.7 fL (7.4-10.4); Platelet Count 313 10^3/uL (150-450); Red Blood Count 4.21 10^6 /uL (4.18-5.48); Red Cell Distribution Width 14 % (10-15); White Blood Count 17.7 10^3/uL (3.5-10.8)
[2020-05-02 04:50] LABS: Calcium 8.7 mg/dL (8.6-10.3); EGFR African American 67.1 (>60); EGFR Non-African American 55.5 (>60); Magnesium 2.7 mg/dL (1.9-2.7)
[2020-05-02] MEDS: Heparin 5000 UNITS/ML 1 mL VIAL SUBCUT SCH ×3 (04:56→22:15)
[2020-05-02 05:08] LABS: Potassium 4.7 mmol/L (3.5-5.0)
[2020-05-02] MEDS: Mometasone/Formoter 200/5 MDI INH SCH ×2 (07:09→19:53)
[2020-05-02] MEDS: SPIRIVA Respimat (tiotropium) 2.5 mcg/inh Inhaler INH SCH (07:09)
[2020-05-02] MEDS: Multivitamins/Minerals TAB PO SCH (07:33)
[2020-05-02] MEDS: Aspirin EC 81 mg TAB.EC (enteric coated) PO SCH (07:34)
[2020-05-02] MEDS: Nicotine PATCH 14 MG/24 HR PATCH TRANSDERM SCH (07:35)
[2020-05-02] MEDS: methylPREDNISolone 125 mg 2 ML VIAL IV SCH (07:36)
[2020-05-02] MEDS ORDERED: Metoprolol Tartrate 5 mg VIAL 5 ml VIAL (1 mg/ml) IV ONE (09:53)
[2020-05-02] MEDS ORDERED: ISRADIPINE 2.5 MG PO SCH (11:00)
[2020-05-02] MEDS ORDERED: methylPREDNISolone SOD 40 mg/ml 1 ml VIAL IV SCH (11:30)
[2020-05-02] MEDS: methylPREDNISolone SOD 40 mg/ml 1 ml VIAL IV SCH (20:33)
[2020-05-02] MEDS: cefTRIAXone 1 gm/50 mL NS BAG 1 GM/50 ML BAG IVPB SCH (22:15)
[2020-05-02] MEDS: Azithromycin 500 mg/250 ml NS 500 MG/250 ML BAG IVPB SCH (23:44)
[2020-05-03] MEDS: Albuterol HFA INHALER 8 gm MDI INH SCH ×6 (03:21→22:22)
[2020-05-03] MEDS: Heparin 5000 UNITS/ML 1 mL VIAL SUBCUT SCH ×3 (05:57→20:38)
[2020-05-03 06:23] LABS: Hematocrit 38 % (42-52); Hemoglobin 12.7 g/dL (14.0-18.0); Mean Corpuscular HGB Conc 33 g/dL (31-36); Mean Corpuscular Hemoglobin 34 pg (27-31); Mean Corpuscular Volume 102 fL (80-94); Mean Platelet Volume 8.9 fL (7.4-10.4); Platelet Count 255 10^3/uL (150-450); Red Blood Count 3.76 10^6 /uL (4.18-5.48); Red Cell Distribution Width 15 % (10-15); White Blood Count 15.1 10^3/uL (3.5-10.8)
[2020-05-03 06:42] LABS: BUN/Creatinine Ratio 37.8 (8-20); Calcium 8.6 mg/dL (8.6-10.3); EGFR African American 55.8 (>60); EGFR Non-African American 46.1 (>60); Magnesium 2.5 mg/dL (1.9-2.7); Phosphorus 4.1 mg/dL (2.5-5.0)
[2020-05-03 06:46] LABS: Potassium 5.2 mmol/L (3.5-5.0)
[2020-05-03 06:59] LABS: TSH Ultra Thyroid Stim Horm 0.47 mcIU/mL (0.34-5.60)
[2020-05-03] MEDS ORDERED: Dextrose 50% Syringe 50 ml 25 GM/50 ML SYRINGE IV PUSH PRN (07:37)
[2020-05-03] MEDS: Mometasone/Formoter 200/5 MDI INH SCH ×2 (07:45→19:44)
[2020-05-03] MEDS: SPIRIVA Respimat (tiotropium) 2.5 mcg/inh Inhaler INH SCH (07:45)
[2020-05-03] MEDS ORDERED: Sodium Polystyrene ORAL.SUSP 15 GM/60 ML BTL PO ONE (08:00)
[2020-05-03] MEDS: Nicotine PATCH 14 MG/24 HR PATCH TRANSDERM SCH (08:18)
[2020-05-03] MEDS: methylPREDNISolone SOD 40 mg/ml 1 ml VIAL IV SCH (08:18)
[2020-05-03] MEDS: Multivitamins/Minerals TAB PO SCH (08:18)
[2020-05-03] MEDS: Aspirin EC 81 mg TAB.EC (enteric coated) PO SCH (08:18)
[2020-05-03] MEDS: cefTRIAXone 1 gm/50 mL NS BAG 1 GM/50 ML BAG IVPB SCH (20:38)
[2020-05-03] MEDS: Azithromycin 500 mg/250 ml NS 500 MG/250 ML BAG IVPB SCH (23:53)
[2020-05-04] MEDS: Albuterol HFA INHALER 8 gm MDI INH SCH ×4 (02:47→15:05)
[2020-05-04] MEDS: Heparin 5000 UNITS/ML 1 mL VIAL SUBCUT SCH (05:38)
[2020-05-04 05:49] LABS: ABS Lymphocytes 0.3 10^3/ul (1.0-4.8); ABS Monocytes 1.4 10^3/ul (0-0.8); ABS Neutrophils 12.1 10^3/ul (1.5-7.7); Hematocrit 41 % (42-52); Hemoglobin 13.5 g/dL (14.0-18.0); Lymphocyte % 2.5 %; Mean Corpuscular HGB Conc 33 g/dL (31-36); Mean Corpuscular Hemoglobin 34 pg (27-31); Mean Corpuscular Volume 103 fL (80-94); Mean Platelet Volume 9.2 fL (7.4-10.4); Platelet Count 253 10^3/uL (150-450); Red Blood Count 3.96 10^6 /uL (4.18-5.48); Red Cell Distribution Width 14 % (10-15); White Blood Count 13.9 10^3/uL (3.5-10.8)
[2020-05-04 06:06] LABS: BUN/Creatinine Ratio 43.4 (8-20); Calcium 8.7 mg/dL (8.6-10.3)
[2020-05-04] MEDS: SPIRIVA Respimat (tiotropium) 2.5 mcg/inh Inhaler INH SCH (07:40)
[2020-05-04] MEDS: Mometasone/Formoter 200/5 MDI INH SCH (07:41)
[2020-05-04] MEDS: Nicotine PATCH 14 MG/24 HR PATCH TRANSDERM SCH (08:10)
[2020-05-04] MEDS: Aspirin EC 81 mg TAB.EC (enteric coated) PO SCH (08:17)
[2020-05-04] MEDS: Multivitamins/Minerals TAB PO SCH (08:18)
[2020-05-04 09:45] VITALS: BP 135/53
== END 2020-05-04 14:23 | disposition home or self-care (01) | DRG 193 ==
LOC: ED 20:35 → ICU 22:59 → MEDTELE 05-02 08:58 → UNDODISIN 05-04 12:25
PROVIDERS: ADMIT Internal Medicine; ATTEND Internal Medicine

== ENCOUNTER 2020-05-04 23:38 | Observation (INO) ==
[2020-05-05] MEDS ORDERED: NS 0.9% 1000 ml BAG 1,000 ML IV ONE (00:03)
[2020-05-05 00:56] LABS: ABS Lymphocytes 0.2 10^3/ul (1.0-4.8); ABS Monocytes 0.8 10^3/ul (0-0.8); ABS Neutrophils 11.7 10^3/ul (1.5-7.7); Hematocrit 47 % (42-52); Hemoglobin 15.6 g/dL (14.0-18.0); Lymphocyte % 1.4 %; Mean Corpuscular HGB Conc 34 g/dL (31-36); Mean Corpuscular Hemoglobin 34 pg (27-31); Mean Corpuscular Volume 102 fL (80-94); Mean Platelet Volume 8.9 fL (7.4-10.4); Platelet Count 261 10^3/uL (150-450); Red Blood Count 4.55 10^6 /uL (4.18-5.48); Red Cell Distribution Width 15 % (10-15); White Blood Count 12.7 10^3/uL (3.5-10.8)
[2020-05-05 01:13] LABS: ALT 259 U/L (7-52); AST 76 U/L (13-39); Albumin 3.8 g/dL (3.2-5.2); Albumin/Globulin Ratio 1.3 (1-3); Alkaline Phosphatase 109 U/L (34-104); BUN/Creatinine Ratio 43.2 (8-20); Blood Urea Nitrogen 57 mg/dL (6-24); CO2 Carbon Dioxide 34 mmol/L (22-32); Calcium 9.4 mg/dL (8.6-10.3); Chloride 93 mmol/L (101-111); EGFR African American 63.6 (>60); EGFR Non-African American 52.6 (>60); Glucose 231 mg/dL (70-100); Sodium 131 mmol/L (135-145); Total Protein 6.8 g/dL (6.4-8.9)
[2020-05-05 01:18] LABS: Anion Gap 4 mmol/L (2-11); Potassium 5.6 mmol/L (3.5-5.0)
[2020-05-05 01:21] LABS: Troponin I 0.07 ng/mL (<0.03)
[2020-05-05 04:55] LABS: Troponin I 0.07 ng/mL (<0.03)
[2020-05-05] MEDS ORDERED: Furosemide 40 mg/4 ml IV VIAL IV ONE (05:10)
[2020-05-05] MEDS ORDERED: Albuterol 2.5mg/3 ml (0.083%) NEB.SOLN INH PRN (08:16)
[2020-05-05] MEDS ORDERED: oxyCODONE/Acetamin 5/325 mg TAB PO PRN (08:16)
[2020-05-05] MEDS ORDERED: Albuterol HFA INHALER 8 gm MDI INH PRN (08:16)
[2020-05-05] MEDS: Aspirin EC 81 mg TAB.EC (enteric coated) PO SCH (08:42)
[2020-05-05] MEDS: Multivitamins/Minerals TAB PO SCH (12:05)
[2020-05-05] MEDS: Mometasone/Formoter 100/5 MDI INH SCH ×2 (12:58→19:44)
[2020-05-05] MEDS: SPIRIVA Respimat (tiotropium) 2.5 mcg/inh Inhaler INH SCH (12:58)
[2020-05-05 13:06] LABS: Troponin I 0.07 ng/mL (<0.03)
[2020-05-05 16:39] LABS: Magnesium 3.4 mg/dL (1.9-2.7)
[2020-05-06] MEDS: Morphine ORAL.SOLN 10 mg 2 mg/ml UDC 5 ml (10 mg) PO PRN ×2 (02:34→21:21)
[2020-05-06] MEDS: Mometasone/Formoter 100/5 MDI INH SCH ×2 (08:08→20:10)
[2020-05-06] MEDS: SPIRIVA Respimat (tiotropium) 2.5 mcg/inh Inhaler INH SCH (08:17)
[2020-05-06 08:21] LABS: ABS Lymphocytes 0.5 10^3/ul (1.0-4.8); ABS Monocytes 1.1 10^3/ul (0-0.8); ABS Neutrophils 9.2 10^3/ul (1.5-7.7); Eosinophil % 0.2 %; Hematocrit 41 % (42-52); Hemoglobin 13.8 g/dL (14.0-18.0); Lymphocyte % 4.2 %; Mean Corpuscular HGB Conc 33 g/dL (31-36); Mean Corpuscular Hemoglobin 34 pg (27-31); Mean Corpuscular Volume 102 fL (80-94); Mean Platelet Volume 9.2 fL (7.4-10.4); Platelet Count 230 10^3/uL (150-450); Red Blood Count 4.05 10^6 /uL (4.18-5.48); Red Cell Distribution Width 14 % (10-15); White Blood Count 10.8 10^3/uL (3.5-10.8)
[2020-05-06 08:38] LABS: BUN/Creatinine Ratio 39.1 (8-20); Calcium 8.3 mg/dL (8.6-10.3); EGFR African American 78.5 (>60); EGFR Non-African American 64.9 (>60); Potassium 5.3 mmol/L (3.5-5.0)
[2020-05-06] MEDS: Multivitamins/Minerals TAB PO SCH (09:53)
[2020-05-06] MEDS: Aspirin EC 81 mg TAB.EC (enteric coated) PO SCH (09:53)
[2020-05-07 07:47] VITALS: BP 159/80
[2020-05-07] MEDS: SPIRIVA Respimat (tiotropium) 2.5 mcg/inh Inhaler INH SCH (08:00)
[2020-05-07] MEDS: Mometasone/Formoter 100/5 MDI INH SCH (08:02)
[2020-05-07 08:17] LABS: ALT 89 U/L (7-52); AST 18 U/L (13-39); Albumin/Globulin Ratio 1.3 (1-3); Alkaline Phosphatase 86 U/L (34-104); BUN/Creatinine Ratio 30.1 (8-20); Blood Urea Nitrogen 28 mg/dL (6-24); CO2 Carbon Dioxide 40 mmol/L (22-32); Calcium 8.5 mg/dL (8.6-10.3); Chloride 94 mmol/L (101-111); EGFR African American 95.3 (>60); EGFR Non-African American 78.8 (>60); Globulin 2.3 g/dL (2-4); Glucose 110 mg/dL (70-100); Potassium 4.4 mmol/L (3.5-5.0); Sodium 134 mmol/L (135-145); Total Protein 5.3 g/dL (6.4-8.9)
[2020-05-07] MEDS: Aspirin EC 81 mg TAB.EC (enteric coated) PO SCH (08:20)
[2020-05-07] MEDS: Multivitamins/Minerals TAB PO SCH (08:20)
== END 2020-05-07 13:25 | disposition home or self-care (01) ==
LOC: ED 23:38 → MEDTELE 23:38
PROVIDERS: ADMIT Student in an Organized Health Care Education/Training Program; ATTEND Student in an Organized Health Care Education/Training Program